=== PATIENT | male | born 1950 | race Caucasian/White ===

== ENCOUNTER 2024-06-30 12:28 | Inpatient (IN) ==
--- OUTSIDE RECORDS SUMMARY | 2024-06-30 12:34 | External Medical Summary | Summary of Care ---
Author Name Unknown Organization [facility] Address [address] [facility] [address] Phone [phone] Care Team Providers Care Multigrapher Name Role Phone Denae LUNA MD, Duglas Bravo Primary Care Provider [phone] Reason for Visit * Auth/Cert Specialty Diagnoses / Procedures Referred By Anisha fonseca Referred To Contact Diagnoses Dysphagia, unspecified type Dysphagia, unspecified type [R13.10] Procedures EGD, FLEXIBLE, DIAGNOSTIC ESOPHAGOGASTRODUODENOSCOPY (EGD), FLEXIBLE, TRANSORAL, DIAGNOSTIC Anne Linda MD [address] [place] [address] Phone: tel: fax: ENDO [facility], Endoscopy Room [facility] [address] [place] [address] Phone: tel: Referral ID Status Reason Start Date Expiration Date Visits Re quested Visits Authorized [id number] Encounter Details Date Type Department Care Team (Latest Contact Info) Description 05/21/2024 7:42 AM EST - 05/21/2024 9:21 AM EST Hospital Encounter ENDO [facility], Endoscopy Room [facility] [address] [place] [phone] Sherin Cote DO [address] [place] [address] Upper GI Endoscopy Discharge Disposition: Home - Self Care Allergies No known active allergiesdocumented as of this encounter (statuses as of 05/21/2024) Medications ASPIRIN 81 MG PO CHEWIndications:Cor onary atherosclerosis of [place] coronary artery,HTN, goal below 140/90,Dyslipidemia , goal LDL below 70 take one tablet daily 100 Tab 3 04/05/20 11 Active CoQ10 100 MG Oral Capsule Take by mouth 1 Capsule daily . 30 Capsule 5 09/12/19 22 Active Sildenafil Citrate 20 MG Oral Tablet (Revatio)Indication s:Erectile dysfunction, unspecified erectile dysfunction type 2-5 tabs as needed erectile dysfunction 30 Tablet 2 01/11/20 23 Active Nitroglycerin 0.4 MG Sublingual Tablet Sublingual (Nitrostat)Indicati ons:Acute RI, anterior wall (HCC) PLACE 1 TAB UNDER THE TONGUE NEEDED FOR CHEST PAIN, MAX 3 DOSES 25 Tablet 11 03/31/20 23 Active Rosuvastatin Calcium 40 MG Oral Tablet (Crestor)Indication s:Dyslipidemia, goal LDL below 70 TAKE 1 TABLET BY MOUTH EVERY DAY IN THE MORNING 90 Tablet 3 07/25/19 24 Active Solifenacin Succinate 10 MG Oral Tablet (VESIcare) TAKE ONE TABLET BY MOUTH IN THE MORNING 30 Tablet 6 10/20/19 24 Active Metoprolol Tartrate 50 MG Oral Tablet (Lopressor)Indicati ons:HTN, goal below 140/90 TAKE 1 TABLET BY MOUTH TWICE A DAY 180 Tablet 3 04/02/20 24 Active Ezetimibe 10 MG Oral Tablet (Zetia) TAKE 1 TABLET BY MOUTH EVERY DAY IN THE MORNING 90 Tablet 3 04/02/20 24 Active Chlorthalidone 25 MG Oral Tablet (Hygroton)Indicatio ns:HTN, goal below 140/90,Chronic ischemic heart disease TAKE 1/2 TABLET BY MOUTH DAILY 45 Tablet 3 04/02/20 24 Active Pantoprazole Sodium 20 MG Oral Tablet Delayed Release (Protonix)Indicatio ns:Dysphagia, unspecified type Take 1 Tablet by mouth in the morning. 90 Tablet 1 04/04/20 24 Active Losartan Potassium 100 MG Oral Tablet (Cozaar) TAKE 1 TABLET BY MOUTH EVERY DAY 90 Tablet 2 04/20/20 24 Active documented as of this encounter (statuses as of 05/21/2024) Active Problems Problem Noted Date Diagnosed Date S/P lumbar laminectomy 01/25/2022 BPH with obstruction/lower urinary tract symptom s 09/18/2021 Dyslipidemia, goal LDL below 70 09/30/2010 OLD MYOCARDIAL INFARCT 01/02/2009 Overview (01/02/2009): Modified by Acute RI Protocol #5. CHR ISCHEMIC HRT DIS NOS 09/14/2005 HTN, goal below 140/90 12/18/2001 Coronary atherosclerosis of [place] coronary sravanthi ry Alcohol abuse, continuous documented as of this encounter (statuses as of 05/21/2024) Resolved Problems Problem Noted Date Diagnosed Date Resolved Date Prediabetes 07/26/2017 01/21/2022 Overview: Per Prediabetes protocol #1 Palpitations 07/25/2013 09/22/2016 Discomfort in chest 07/25/2013 09/23/19 17 Acute RI, anterior wall 04/04/200712/12 Overview (01/02/2009): Modified by Acute RI Protocol #5. ADVANCE DIRECTIVE INFORMATION 03/29/2005 04/16/2024 Overview (03/29/2005): No, Advance Directive brochure offered , patient declined. Spasm of muscle 09/22/2016 Overview (03/08/2001): back documented as of this encounter (statuses as of 05/21/2024) Immunizations Name Administration Dates Next Due COVID-19 mRNA, LNP-s, No Pre serve, 2-Dose Series (Pfizer) 08/30/2020,08/09/2020 Pneumococcal Conjugate Vacc, 13 Valent (Prevnar) 10/19/2014 Pneumococcal Polysaccharide PPV23 (Pneumovax) 10/21/2015,06/09/2006 Season Influenza, Quad, PF, Adjuvanted, 65+ Yrs, IM (FLUAD) 03/19/2020 Seasonal Influenza Vac., MDV , IM, 0.5 mL (Fluzone) 04/23/2014,04/04/2013,03/23/2012,05/04,04/07/2010,04/11/2009,03/28/2008 ,06/08/2007,06/09/2006 Seasonal Influenza, High Dos e, Trivalent, PF, IM (Fluzone HD) 02/28/2024 Seasonal Influenza, PF, 6 M & above, IM , (FluLaval or Fluzone) 04/05/2018,03/30/2017 Seasonal Influenza, Quadriva lent Hd (Fluzone Hd) 04/19/2022,04/07/2021 Seasonal Influenza, Quadriva lent, No Preserve, IM 03/24/2016,04/09/2015 Seasonal Influenza, Trivalen t, Adjuvanted, 65+ YRS, PF, (Fluad) 04/27/2019 TDAP (age 10 and older)(Boostrix) 07/25/2020 TDAP, Age 7 and older, IM (Adacel) 09/07/2007 Varicella Zoster Vaccine (Adult) 04/15/2015 documented as of this encounter Social History Tobacco Use Types Packs/Day Years Used Date Smoking Tobacco: Former Cigarettes 1 2 0 06/13/1999 - 06/13/2001 Smokeless Tobacco: Never Alcohol Use Standard Drinks/Week Comments Yes 25 (1 standard drink = 0.6 oz pu re alcohol) 4 beers some days PHQ-2 Answer Date Recorded PHQ Adult Total Score 0 01/10/2023 Hunger Vital Sign Answer Date Recorded Within the past 12 months, y ou worried that your food would run out before you got the money to buy more. Patient declined Within the past 12 months, t he food you bought just didn't last and you didn't have money to get more. Patient declined Utilities Answer Date Recorded Do you have trouble paying y our heating, water, or electric bill? (Adult - for ages 18 years and over) Not on file 11/29/2023 Is your family able to pay t he heat, water, or electric bill? (Household - for ages 0-17 years) Not on file 11/29/2023 Does your family have access to good internet? (Household - for ages 0-17 years) Not on file 11/29/2023 Social Connections Answer Date Recorded How often do you feel lonely or isolated from those around you? 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 Not on file Not on file Not on file documented as of this encounter Last Filed Vital Signs Vital Sign Reading Time Taken Comments Blood Pressure 116/73 05/21/2024 9:06 AM EST Pulse 75 05/21/2024 9:06 AM EST Temperature 36.1 C (97 F) 05/21/2024 9:06 AM EST Respiratory Rate 16 05/21/2024 9:06 AM EST Oxygen Saturation 98% 05/21/2024 9:06 AM EST Inhaled Oxygen Concentration - - Weight 100.2 kg (221 lb) 05/21/2024 7:51 AM EST Height 188 cm (6' 2.02") 05/21/2024 7:51 AM EST Body Mass Index 28.36 05/21/2024 7:51 AM EST documented in this encounter Functional Status * Are you deaf or do you have serious difficulty hearing? Answer Date of Assessment Author No 01/25/2022 4:54 PM EDT Linda Álvarez RN * Are you blind or do you have serious difficulty seeing, even when wearing glasses? Answer Date of Assessment Author No 01/25/2022 4:54 PM ABDIRAHMANT Linda Álvarez RN * Do you have serious difficulty walking or climbing stairs? (5 years old or older) Answer Date of Assessment Author Yes 01/27/2022 8:00 AM EDT Jacquelyn Alford RN * Do you have difficulty dressing or bathing? (5 years old or older) Answer Date of Assessment Author No 01/25/2022 4:54 PM ABDIRAHMANT Linda Álvarez RN * Because of a physical, mental, or emotional condition, do you have difficulty doing errands alone such as visiting a doctors office or shopping? (15 years old or older) Answer Date of Assessment Author No 01/25/2022 4:54 PM Linda Chaidez RN documented as of this encounter Mental Status * Because of a physical, mental, or emotional condition, do you have serious difficulty concentrating, remembering, or making decisions? (5 years old or older) Answer Entry Date Author No 01/25/2022 4:54 PM Linda Chaidez RN documented in this encounter H&P Notes * Sherin Cote, DO - 05/21/2024 8:20 AM EST Endoscopy Pre-Procedure Assessment Name: Lorne Roe Date: 05/21/2024 Time: 8:20 AM Procedure(s): Upper GI Endoscopy; with Indication(s) of dysphagia or odynophagia Endoscopy Pre-Procedure Assessment: Prior to the procedure, the patient is identified. The patient's history, medications and allergieshave been reviewed. The patient is competent. The risks and benefits of the proposed procedure and the planned sedation have been discussed with the patient. All questions have been answered and informed consent for the procedure has been obtained. Prior to Admission medications Medication Sig Last Dose Discont. Losartan Potassium 100 MG Oral Tablet (Cozaar) TAKE 1 TABLET BY MOUTH EVERY DAY 05/20/2024 Pantoprazole Sodium 20 MG Oral Tablet Delayed Release (Protonix) Take 1 Tablet by mouth in the morning. 05/20/2024 Chlorthalidone 25 MG Oral Tablet (Hygroton) TAKE 1/2 TABLET BY MOUTH DAILY 05/20/2024 Ezetimibe 10 MG Oral Tablet (Zetia) TAKE 1 TABLET BY MOUTH EVERY DAY IN THE MORNING 05/20/2024 Metoprolol Tartrate 50 MG Oral Tablet (Lopressor) TAKE 1 TABLET BY MOUTH TWICE A DAY 05/20/2024 Solifenacin Succinate 10 MG Oral Tablet (VESIcare) TAKE ONE TABLET BY MOUTH IN THE MORNING 05/20/2024 Rosuvastatin Calcium 40 MG Oral Tablet (Crestor) TAKE 1 TABLET BY MOUTH EVERY DAY IN THE MORNING 05/20/2024 Sildenafil Citrate 20 MG Oral Tablet (Revatio) 2-5 tabs as needed erectile dysfunction Unknown CoQ10 100 MG Oral Capsule Take by mouth 1 Capsule daily . 05/20/2024 ASPIRIN 81 MG PO CHEW take one tablet daily 05/20/2024 Nitroglycerin 0.4 MG Sublingual Tablet Sublingual (Nitrostat) PLACE 1 TAB UNDER THE TONGUE NEEDED FOR CHEST PAIN, MAX 3 DOSES Over 30 Days Review of patient's allergies indicates: No Known Allergies BP 136/82 | Pulse 78 | Temp 36.4 C (97.6 F) (Tympanic) | Resp 14 | Ht 1.88 m (6' 2.02") | Wt 100.2 kg (221 lb) | SpO2 97% | BMI 28.36 kg/m | BSA 2.29 m Physical Exam: Mental Status Examination: alert and oriented. Airway Examination: normal oropharyngeal airway and neck mobility. Respiratory Examination: clear to auscultation. CV Examination: regular rate and rhythm. ASA Grade: II - A patient with mild systemic disease. Abdomen: soft This patient has undergone a preprocedural evaluation. A determination has been made to proceed with the planned procedure under [facility] procedural guidelines and the [facility] Non-Emergent, Elective Medical Services and Treatment Recommendations (published on 09-18-19). The community and hospital prevalence of COVID-19 has been discussed as well as this patient's specific risks associated with SARS-CoV-19 infection. Based upon the clinical acuity and patient-specific care considerations, this procedure is deemed a Tier II - Intermediate acuity treatment or service with either progression or the threat of progressive disease related to the delay in treatment. Not providing the service has the potential for increasing morbidity or mortality. After reviewing the risks and benefits, the patient is deemed in satisfactory condition to undergo the procedure. The anesthesia plan is to use general anesthesia. We have discussed the risks and benefits of upper endoscopy to include bleeding, infection, perforation, discomfort, aspiration and need for follow-up studies. Sherin Cote DO 05/21/2024 documented in this encounter Procedure Notes * Duglas Philippe III, MD - 05/21/2024 8:21 AM ESTAssociated Order(s): UPPER GI ENDOSCOPY [facility] Patient Name: Lorne Roe Procedure Date: 05/21/2024 8:21 AM Date of : 1950 Admit Type: Outpatient Note Status: Finalized Date of : 1950 Admit Type: Outpatient Age: 73 Room: Endo 3 Gender: Male Note Status: Finalized Procedure: Upper GI endoscopy Indications: Dysphagia Providers: Sherin Cote DO (Doctor) Referring MD: Duglas Philippe III, MD (Referring MD), Safia Moses (Referring MD) Medicines: General Anesthesia Complications: No immediate complications. Estimated blood loss: Minimal. Procedure: Pre-Anesthesia Assessment: - Prior to the procedure, a History and Physical was performed, and patient medications, allergies and sensitivities were reviewed. The patient's tolerance of previous anesthesia was reviewed. - The risks and benefits of the procedure and the sedation options and risks were discussed with the patient. All questions were answered and informed consent was obtained. - Patient identification and proposed procedure were verified prior to the procedure by the physician, the nurse and the supply analyst. The procedure was verified in the procedure room. - Pre-procedure physical examination revealed no contraindications to sedation. - ASA Grade Assessment: II - A patient with mild systemic disease. - After reviewing the risks and benefits, the patient was deemed in satisfactory condition to undergo the procedure. - The anesthesia plan was to use general anesthesia. - Immediately prior to administration of medications, the patient was re- assessed for adequacy to receive sedatives. - The heart rate, respiratory rate, oxygen saturations, blood pressure, adequacy of pulmonary ventilation, and response to care were monitored throughout the procedure. - The physical status of the patient was re-assessed after the procedure. After obtaining informed consent, the endoscope was passed under direct vision. All instruments were visually inspected immediately before and after removal from the patient to ensure they are fully intact. Throughout the procedure, the patient's blood pressure, pulse, and oxygen saturations were monitored continuously. The [id number] Endoscope ([id number]) was introduced through the mouth, and advanced to the third part of duodenum. The upper GI endoscopy was accomplished without difficulty. The patient tolerated the procedure well. Findings & Specimens: No endoscopic abnormality was evident in the esophagus to explain the patient's complaint of dysphagia. It was decided, however, to proceed with dilation of the entire esophagus. A guidewire was placed and the scope was withdrawn. Dilation was performed with a Savary dilator with no resistance at 54 Fr. The dilation site was examined following endoscope reinsertion and showed mild mucosal disruption jsut above the GEJ. Estimated blood loss was minimal. The Z-line was irregular and was found 40 cm from the incisors. Biopsies were taken with a cold forceps for histology. The pathology specimen was placed into Bottle Number 1. Estimated blood loss was minimal. The entire examined stomach was normal. The examined duodenum was normal. Impression: - No endoscopic esophageal abnormality to explain patient's dysphagia. Esophagus dilated to 54 Fr. - Z-line irregular, 40 cm from the incisors. Biopsied. - Normal stomach. - Normal examined duodenum. Recommendation: - The patient will be observed post-procedure, until all discharge criteria are met. - Advance diet as tolerated today. - Await pathology results. - Observe patient's clinical course following today's procedure with therapeutic intervention. - Use Protonix 20 mg PO daily for 3 months. Sherin Cote DO 05/21/2024 8:50:43 AM This report has been signed electronically. documented in this encounter Nursing Notes * Mara Real RN - 05/21/2024 9:20 AM EST Patient is alert, pain free, passing flatus and tolerating po fluids prior to discharge. Patient has been visited by Dr. Sherin Cote. Patient has received and demonstrates understanding of discharge instructions. Patient ambulated to private auto accompanied by endo staff. * Mara Real RN - 05/21/2024 8:51 AM EST Patient transferred to post endo s/p egd. Patient awake/drowsy Respirations are even and unlabored on room air. NSR in the 80s on the monitor. Abdomen soft and non distended. Vital signs stable. * Shlomo eVla RN - 05/21/2024 8:48 AM EST See anesthesia record for medication administered during procedure. Shlomo Vela RN Pre cleaning of scope at the bedside started by testing tech. Specimen(s) and location(s) verified with physician post procedure 8:48 AM Shlomo Vela, RN * Manjula Garcia RN - 05/21/2024 7:59 AM EST The following pt discharge instructions reviewed with pt prior to prodedure: No driving today. No alcohol today. No signing of legal documents. Rest as much as possible today and can return to normal activities tomorrow. No operating any heavy equipment today. Diet as tolerated. Pt verbalized understanding. documented in this encounter Plan of Treatment Upcoming Encounters Date Type Department Care Team (Late st Contact Info) Description 08/01/2024 11:15 AM EST Office Visit Urology, [facility] [address] [place] [address] Medhat Encinas MD [address] [facility] [place] [address] 11/26/2024 2:30 PM EDT Office Visit Cardiology, [facility] [address] [place] [address] Guerrero [place], [address] [facility] [place] [address] 02/28/2025 9:20 AM EDT Office Visit [facility] [address] [facility] [place] [address] Duglas Philippe III, MD [address] [facility] [place] [address] Pending Results Name Type Priority Associated Diagnoses Date /Time SURGICAL PATHOLOGY Pathology Routine Dysphagia, unspecified type 05/21/2024 8:49 AM EST Scheduled Orders Name Type Priority Associated Diagnoses Orde r Schedule SURGICAL PATHOLOGY Pathology Routine Dysphagia, unspecified type Release Upon Ordering for 1 Occurrences starting 05/21/2024 Scheduled Procedures Name Priority Associated Diagnoses Date/Ti me ESOPHAGOGASTRODUODENOSCOPY ( EGD), FLEXIBLE, TRANSORAL, DIAGNOSTIC Dysphagia, unspecified type 05/21/2024 8:38 AM EST COLONOSCOPY FLEXIBLE PROXIMA L DIAGNOSTIC Recall History of colonic polyps Health Maintenance Due Date Last Done Comments Albumin/Creatinine Ratio 1967 Cologuard 1994 Fecal Occult Blood Test 1994 Sigmoidoscopy 1994 Zoster Vaccines (2 of 3) 06/10/2015 04/15/2015 Adult Wellness Visit 01/05/2022 01/05/2021 Depression Screening 01/11/2024 01/10/2023 COVID-19 Vaccine ( season) 2024 08/30/2020, 08/09/2020 GFR 02/26/2025 02/27/2024, 12/11, 01/28/2022, Additional history exists Colonoscopy 05/16/2026 05/16/2023, 09/2022, 04/10/2019, Additional history exists Colorectal Cancer Screening 05/16/2026 DTap/Tdap Vaccines (3 - Td or Tdap) 07/25/2030 07/25/2020, 09/07/2007 Pneumococcal Vaccine: 65+ Years Completed 10/21/2015, 10/19/2014, 06/09/2006 AAA Screening Completed 12/31/2021, 08/19/2014 Influenza Vaccine (FLU shot) Completed , 04/19/2022, 04/07/2021, Additional history exists HPV (Gardasil) Vaccine Aged Out No lo nger eligible based on patient's age to complete this topic Hepatitis B Vaccine Aged Out No longe r eligible based on patient's age to complete this topic MENINGOCOCCAL (MENACTRA/MENVEO) Aged Out No longer eligible based on patient's age to complete this topic documented as of this encounter Medical Devices Implanted Type Area Post Closer Device Identifier Shelf Expiration Date Model / Serial / Lot 5.6cc, (Pk Of 4) 1in X 2in Mediuminfuse Bone Graft Kit Implanted:Qty: 1 on 01/25/2022 by Marshall Dupont MD at OR [facility] Bone N/A: Spine Lumbar Medtronic Sofamor Danek [id number] 02/10/2022 [id number] / [id number] / [id number] 25mm X 100mm X 4mm, 10cc Vitoss Bioactive Foam Strip, Synthetic Bone Graft Substitute, Ambient Implanted:Qty: 1 on 01/25/2022 by Marshall Dupont MD at OR [facility] Graft N/A: Spine Lumbar JERAMIE [id number] 03/10/[id number] / [id number] / [id number] Vitoss Bimodal Foam Pack Implanted:Qty: 1 on 01/25/2022 by Marshall Dupont MD at OR [facility] Graft N/A: Spine Lumbar JERAMIE [id number] 07/10/[id number] / [id number] / [id number] 25mm X 100mm X 4mm, 10cc Vitoss Bioactive Foam Strip, Synthetic Bone Graft Substitute, Ambient Implanted:Qty: 1 on 01/25/2022 by Marshall Dupont MD at OR [facility] Graft N/A: Spine Lumbar JERAMIE [id number] 03/10/2024 [id number] / [id number] / [id number] Screw [place] Poly 06.5x50 Mm - [id number] Implanted:Qty: 8 on 01/25/2022 by Marshall Dupont MD at OR [facility] Screw N/A: Spine Lumbar [id number] 0 / / Set Screw Poly Atr [place] - [id number] Implanted:Qty: 8 on 01/25/2022 by Marshall Dupont MD at OR [facility] Screw N/A: Spine Lumbar JERAMIE : SPINE [id number] / / Dbx 10cc [id number] - [id number] - [id number] Implanted:Qty: 1 on 01/25/2022 by Marshall Dupont MD at OR [facility] Tissue - Human N/A: Spine Lumbar MUSCULOSKELETAL TRANSPLANT FND [id number] 09/09/2023 [id number] / [id number] / LOT NA Lens Intraoc 19.5 - [id number] - [id number] Implanted:Qty: 1 on 07/26/2017 by Orion Hernandez MD at OR [facility] Left: Eye BAUSCH & LOMB 02/10/2022 [id number] / [id number] Lens Intraoc 19.5 - [id number] - [id number] Implanted:Qty: 1 on 08/16/2017 by Orion Hernandez MD at OR [facility] Right: Eye BAUSCH & LOMB 12/10/2021 [id number] / [id number] Cage Inter [id number] 12 Deg - [id number] Implanted:Qty: 1 on 01/25/2022 by Marshall Dupont MD at OR [facility] N/A: Spine Lumbar JERAMIE : SPINE 03/02/2024 58-1028-1 [id number] / / [id number] Cage Inter [id number] 12 Deg Implanted:Qty: 1 on 01/25/2022 by Marshall Dupont MD at OR [facility] N/A: Spine Lumbar JERAMIE : SPINE 09/21/2024 58-1028-1 210K / / [id number] Cage Inter [id number] 15 Deg Implanted:Qty: 1 on 01/25/2022 by Marshall Dupont MD at OR [facility] N/A: Spine Lumbar JERAMIE : SPINE 03/30/2024 58-1028-1 510K / / [id number] Rene Implanted:Qty: 2 on 01/25/2022 by Marshall Dupont MD at OR [facility] N/A: Spine Lumbar JERAMIE : SPINE [id number] / / documented as of this encounter Procedures Procedure Name Priority Date/Time Associated Diagnosis Comments UPPER GI ENDOSCOPY 05/21/2024 8: 21 AM EST documented in this encounter Results * UPPER GI ENDOSCOPY (05/21/2024 8:21 AM EST) 05/21/2024 8:21 AM EST Narrative Procedure Note Duglas Philippe III, MD - 05/21/2024 8:21 AM EST [facility] Patient Name: Lorne Roe Procedure Date: 05/21/2024 8:21 AM Date of : 1950 Admit Type: Outpatient Note Status:Finalized Date of : 1950 Admit Type: Outpatient Age: 73 Room: Endo 3 Gender: Male Note Status: Finalized Procedure: Upper GI endoscopy Indications: Dysphagia Providers: Sherin Cote DO (Doctor) Referring MD: Duglas Philippe III, MD (Referring MD), Alexei Moses (Referring MD) Medicines: General Anesthesia Complications: No immediate complications. Estimated blood loss:Minimal. Procedure: Pre-Anesthesia Assessment: - Prior to the procedure, a History and Physicalwas performed, and patient medications, allergies and sensitivities werereviewed. The patient's tolerance of previous anesthesia was reviewed. - The risks and benefits of the procedure and thesedation options and risks were discussed with the patient. All questions wereanswered and informed consent was obtained. - Patient identification and proposed procedurewere verified prior to the procedure by the physician, the nurse and the supply analyst.The procedure was verified in the procedure room. - Pre-procedure physical examination revealed nocontraindications to sedation. - ASA Grade Assessment: II - A patient with mildsystemic disease. - After reviewing the risks and benefits, thepatient was deemed in satisfactory condition to undergo the procedure. - The anesthesia plan was to use generalanesthesia. - Immediately prior to administration ofmedications, the patient was re-assessed for adequacy to receive sedatives. - The heart rate, respiratory rate, oxygensaturations, blood pressure, adequacy of pulmonary ventilation, and response to care weremonitored throughout the procedure. - The physical status of the patient wasre-assessed after the procedure. After obtaining informed consent, the endoscope waspassed under direct vision. All instruments were visually inspected immediatelybefore and after removal from the patient to ensure they are fully intact. Throughout the procedure, the patient's bloodpressure, pulse, and oxygen saturations were monitored continuously. The [id number] ([id number]) was introduced through the mouth, and advanced to the third part ofduodenum. The upper GI endoscopy was accomplished without difficulty. The patienttolerated the procedure well. Findings & Specimens: No endoscopic abnormality was evident in the esophagus to explain thepatient's complaint of dysphagia. It was decided, however, to proceed with dilation of the entireesophagus. A guidewire was placed and the scope was withdrawn. Dilation was performed with a Savary dilatorwith no resistance at 54 Fr. The dilation site was examined following endoscope reinsertion and showedmild mucosal disruption jsut above the GEJ. Estimated blood loss was minimal. The Z-line was irregular and was found 40 cm from the incisors.Biopsies were taken with a cold forceps for histology. The pathology specimen was placed into Bottle Number1. Estimated blood loss was minimal. The entire examined stomach was normal. The examined duodenum was normal. Impression: - No endoscopic esophageal abnormality to explainpatient's dysphagia. Esophagus dilated to 54 Fr. - Z-line irregular, 40 cm from the incisors.Biopsied. - Normal stomach. - Normal examined duodenum. Recommendation: - The patient will be observed post-procedure,until all discharge criteria are met. - Advance diet as tolerated today. - Await pathology results. - Observe patient's clinical course followingtoday's procedure with therapeutic intervention. - Use Protonix 20 mg PO daily for 3 months. Sherin Cote DO 05/21/2024 8:50:43 AM This report has been signed electronically. us Duglas Philippe III, MD GASTRO UPPER Final Resul t documented in this encounter Visit Diagnoses Diagnosis Dysphagia, unspecified type documented in this encounter Administered Medications Inactive Administered Medications - up to 3 most recent administrations Medication Order MAR Action Action Date Dose Rate Site Acetaminophen (Tylenol) tab 650 mg 650 mg, Oral, PRN Pain, Mild, Starting on Tue05/21/24 at 0858, Until Tue05/21/24 at 1321, For 1 dose, Maximum of 4 grams (4000 mg) per day., Post-op Isolyte-S pH 7.4 infusion Intravenous, at 100 mL/hr, Plasma-LYTE 148, isolyte-S, and isolyte-S pH 7.4 are considered equivalent - including for MAR barcode scanning., CONTINUOUS, Starting on Tue05/21/24 at 0830, Until Tue05/21/24 at 1321, Pre-Op Continue from Pre-Op 05/21/2024 8:29 AM EST 100 mL/hr New Bag 05/21/2024 8:12 AM EST 100 mL/hr documented in this encounter Active and Recently Administered Medications Times are shown in EST. Continuous Medication Order 05/19/2024 05/20/2024 05/21/2024 Isolyte-S pH 7.4 infusion Intravenous, at 100 mL/hr, Plasma-LYTE 148, isolyte-S, and isolyte-S pH 7.4 are considered equivalent - including for MAR barcode scanning., CONTINUOUS, Starting on Tue05/21/24 at 0830, Until Tue05/21/24 at 1321, Pre-Op 0812 (New Bag - Prov ider: Manjula Garcia RN)0829 (Continue from Pre-Op - Provider: Tito Conner CRNA) PRN Medication Order 05/19/2024 05/20/2024 05/21/2024 Acetaminophen (Tylenol) tab 650 mg 650 mg, Oral, PRN Pain, Mild, Starting on Tue05/21/24 at 0858, Until Tue05/21/24 at 1321, For 1 dose, Maximum of 4 grams (4000 mg) per day., Post-op documented in this encounter Advance Directives * Full Code (Latest Code Status on File) Date Activated Date Inactivated Comments 01/25/2022 2:52 PM 01/28/2022 8:12 PM This order r eflects the patients wishes and were consensually agreed upon. Question Answer Comments Discussion of Advance Directives occurred with: Not Discussed * Full Code Date Activated Date Inactivated Comments 01/25/2022 6:12 AM 01/25/2022 2:51 PM This order r eflects the patients wishes and were consensually agreed upon. Question Answer Comments Discussion of Advance Directives occurred with: Not Discussed * Full Code Date Activated Date Inactivated Comments 04/22/2021 8:39 AM 04/22/2021 2:09 PM This order reflects the patients wishes and were consensually agreed upon. * Full Code Date Activated Date Inactivated Comments 04/22/2021 7:08 AM 04/22/2021 8:39 AM This order reflects the patients wishes and were consensually agreed upon. * Full Code Date Activated Date Inactivated Comments 08/16/2017 12:18 PM 08/16/2017 6:55 PM This order re flects the patients wishes and were consensually agreed upon. Care Teams Multigrapher Relationship Specialty Start Date End Date Duglas Philippe III, MD [address] [facility] [place] [address] PCP - General 04/04/07 documented as of this encounter
--- OUTSIDE RECORDS SUMMARY | 2024-06-30 12:35 | External Medical Summary | Summary of Care ---
Author Name Unknown Organization [facility] [address] [address] Phone [phone] Care Team Providers Care Plate Former Name Role Phone Denae LUNA MD, Damon Bravo Primary Care Provider [phone] Reason for Visit * Reason Comments eRx-Medication Refill Encounter Details Date Type Department Care Team (Late st Contact Info) Description 04/20/2024 [facility] [address] [facility] [place] [address] Damon White III, MD [address] [facility] [address] [facility] [address] Allergies No known active allergiesdocumented as of this encounter (statuses as of 04/20/2024) Medications ASPIRIN 81 MG PO CHEWIndications:Co ronary atherosclerosis of [place] coronary artery,HTN, goal below 140/90,Dyslipidemi a, goal LDL below 70 take one tablet daily 100 Tab 3 011 Active CoQ10 100 MG Oral Capsule Take by mouth 1 Capsule daily . 30 Capsule 5 022 Active Sildenafil Citrate 20 MG Oral Tablet (Revatio)Indicatio ns:Erectile dysfunction, unspecified erectile dysfunction type 2-5 tabs as needed erectile dysfunction 30 Tablet 2 023 Active Nitroglycerin 0.4 MG Sublingual Tablet Sublingual (Nitrostat)Indicat ions:Acute AR, anterior wall (HCC) PLACE 1 TAB UNDER THE TONGUE NEEDED FOR CHEST PAIN, MAX 3 DOSES 25 Tablet 11 023 Active Rosuvastatin Calcium 40 MG Oral Tablet (Crestor)Indicatio ns:Dyslipidemia, goal LDL below 70 TAKE 1 TABLET BY MOUTH EVERY DAY IN THE MORNING 90 Tablet 3 024 Active Solifenacin Succinate 10 MG Oral Tablet (VESIcare) TAKE ONE TABLET BY MOUTH IN THE MORNING 30 Tablet 6 024 Active Metoprolol Tartrate 50 MG Oral Tablet (Lopressor)Indicat ions:HTN, goal below 140/90 TAKE 1 TABLET BY MOUTH TWICE A DAY 180 Tablet 3 024 Active Ezetimibe 10 MG Oral Tablet (Zetia) TAKE 1 TABLET BY MOUTH EVERY DAY IN THE MORNING 90 Tablet 3 024 Active Chlorthalidone 25 MG Oral Tablet (Hygroton)Indicati ons:HTN, goal below 140/90,Chronic ischemic heart disease TAKE 1/2 TABLET BY MOUTH DAILY 45 Tablet 3 024 Active Pantoprazole Sodium 20 MG Oral Tablet Delayed Release (Protonix)Indicati ons:Dysphagia, unspecified type Take 1 Tablet by mouth in the morning. 90 Tablet 1 024 Active Losartan Potassium 100 MG Oral Tablet (Cozaar) TAKE 1 TABLET BY MOUTH EVERY DAY 90 Tablet 2 024 Active Losartan Potassium 100 MG Oral Tablet (Cozaar) TAKE 1 TABLET BY MOUTH EVERY DAY 90 Tablet 024 2023 Discontinued documented as of this encounter (statuses as of 04/20/2024) Active Problems Problem Noted Date Diagnosed Date S/P lumbar laminectomy 01/25/2022 BPH with obstruction/lower urinary tract symptom s 09/18/2021 Dyslipidemia, goal LDL below 70 09/30/2010 OLD MYOCARDIAL INFARCT 01/02/2009 Overview (01/02/2009): Modified by Acute AR Protocol #5. CHR ISCHEMIC HRT DIS NOS 09/14/2005 HTN, goal below 140/90 12/18/2001 Coronary atherosclerosis of [place] coronary sravanthi ry Alcohol abuse, continuous documented as of this encounter (statuses as of 04/20/2024) Resolved Problems Problem Noted Date Diagnosed Date Resolved Date Prediabetes 07/26/2017 01/21/2022 Overview: Per Prediabetes protocol #1 Palpitations 07/25/2013 09/22/2016 Discomfort in chest 07/25/2013 09/23/19 17 Acute AR, anterior wall 04/04/200712/12 Overview (01/02/2009): Modified by Acute AR Protocol #5. ADVANCE DIRECTIVE INFORMATION 03/29/2005 04/16/2024 Overview (03/29/2005): No, Advance Directive brochure offered , patient declined. 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 Not on file Not on file Not on file documented as of this encounter Functional Status * Are you [...] 4:54 PM EDT Linda Álvarez RN * Because of a [...] Linda Chaidez RN documented in this encounter Miscellaneous Notes * Telephone Encounter - Pina Sesay RPh - 04/20/2024 7:23 PM ESTSigned Prescriptions: Disp Refills Losartan Potassium 100 MG Oral Tablet (Coz*90 Tab*2 Sig: TAKE 1 TABLET BY MOUTH EVERY DAYAuthorizing Provider: DAMON WHITE III User: PINA SESAY-- documented in this encounter Plan of Treatment Upcoming Encounters Date Type Department Care Team (Late st Contact Info) Description 08/01/2024 11:15 AM EST Office Visit Urology, [address] [place] [address] Medhat Encinas MD [address] [place] [address] 02/28/2025 9:20 AM EDT Office Visit Family Practice [facility] [address] [facility] [place] [address] Damon White III, MD [address] [facility] [place] [address] Scheduled Procedures Name Priority Associated Diagnoses Date/Ti me COLONOSCOPY FLEXIBLE PROXIMA L DIAGNOSTIC Recall History [...] this encounter Medical Devices Implanted Type Area Slurry Tank Operator Device Identifier Shelf Expiration Date Model / Serial / Lot 5.6cc, (Pk Of 4) 1in X 2in Mediuminfuse Bone Graft Kit Implanted:Qty: 1 on 01/25/2022 by Marshall Dupont MD at OR [facility] Bone N/A: Spine Lumbar Medtronic Sofamor Danek [id number] 02/10/2022 [id number] / [id number] / [id number] 25mm X 100mm X 4mm, 10cc Vitoss Bioactive Foam Strip, Synthetic Bone Graft Substitute, Ambient Implanted:Qty: 1 on 01/25/2022 by Marshall Dupont MD at OR [facility] Graft N/A: Spine Lumbar JERAMIE [id number] 03/10/202421011744-2102 / [id number] / [id number] Vitoss Bimodal Foam Pack Implanted:Qty: 1 on 01/25/2022 by Marshall Dupont MD at OR [facility] Graft N/A: Spine Lumbar JERAMIE [id number] 07/10/202321017114-3505 / [id number] / [id number] 25mm X 100mm X 4mm, 10cc Vitoss Bioactive Foam Strip, Synthetic Bone Graft Substitute, Ambient Implanted:Qty: 1 on 01/25/2022 by Marshall Dupont MD at OR [facility] Graft N/A: Spine Lumbar JERAMIE [id number] 03/10/2024 8597-0058 / [id number] / [id number] Screw Kent Poly 06.5x50 Mm - [id number] Implanted:Qty: 8 on 01/25/2022 by Marshall Dupont MD at OR [facility] Screw N/A: Spine Lumbar [employer]2M INC [id number] 0 / / Set Screw Poly Atr Kent - [id number] Implanted:Qty: 8 on 01/25/2022 by Marshall Dupont MD at OR [facility] Screw N/A: Spine Lumbar JERAMIE : SPINE 4561-3952 1 / / Dbx 10cc [id number] - [id number] - [id number] Implanted:Qty: 1 on 01/25/2022 by Marshall Dupont MD at OR [facility] Tissue - Human N/A: Spine Lumbar MUSCULOSKELETAL TRANSPLANT FND [id number] 09/09/2023 [id number] / [id number] / LOT NA Lens Intraoc 19.5 - [id number] - [id number] Implanted:Qty: 1 on 07/26/2017 by Orion Hernandez MD at [facility] Left: Eye BAUSCH & LOMB 02/10/2022 [id number] / [id number] Lens Intraoc 19.5 - [id number] - [id number] Implanted:Qty: 1 on 08/16/2017 by Orion Hernandez MD at [facility] Right: Eye BAUSCH & LOMB 12/10/2021 [id number] / [id number] Cage Inter [id number] 12 Deg - [id number] Implanted:Qty: 1 on 01/25/2022 by Marshall Dupont MD at OR [facility] N/A: Spine Lumbar JERAMIE : SPINE 03/02/2024 58-1028-1 208K / / [id number] Cage Inter [id number] 12 Deg Implanted:Qty: 1 on 01/25/2022 by Marshall Dupont MD at OR [facility] N/A: Spine Lumbar JERAMIE : SPINE 09/21/2024 58-1028-1 210K / / [id number] Cage Inter [id number] 15 Deg Implanted:Qty: 1 on 01/25/2022 by Marshall Dupont MD at OR [facility] N/A: Spine Lumbar JERAMIE : SPINE 03/30/2024 58-1028-1 510K / / [id number] Rene Implanted:Qty: 2 on 01/25/2022 by Marshall Dupont MD at OR [facility] N/A: Spine Lumbar JERAMIE : SPINE [id number] / / documented as of this encounter Advance Directives * Full Code [...] and were consensually agreed upon. Care Teams Plate Former Relationship Specialty Start Date End Date Damon White III, MD [address] [place] [address] PCP - General 04/04/07 documented as of this encounter
--- OUTSIDE RECORDS SUMMARY | 2024-06-30 12:35 | External Medical Summary | Summary of Care ---
Author Name Unknown Organization [facility] Address [address] [facility] [address] Phone [phone] Care Team Providers Care Interventional Physician Name Role Phone Denae LUNA MD, Duglas Bravo Primary Care Provider [phone] Reason for Referral * Ancillary Services (Within 10 days (routine)) - Authorized Specialty Diagnoses / Procedures Referred By Anisha fonseca Referred To Contact Gastroenterology Diagnoses Dysphagia, unspecified type Safia Moses PA-C [address] [facility] [place] [address] Referral ID Status Reason Start Date Expiration Date Visits Requested Visits Authorized [id number] Authorized Ancillary Services Required 4 [phone] Question Answer Referral Priority Within 10 days (routine) Where should this appointment be scheduled? [facility] Comments Upper Endoscopy ASGE Guidelines Dysphagia or odynophagia and Dilation of stenotic lesions ADDITIONAL INFORMATION 1. Is the patient on Coumadin? No 2. Is the patient on Pradaxa? No Reason for Visit * Reason Comments dysphagia Encounter Details Date Type Department Care Team (Late st Contact Info) Description 04/04/2024 11:20 AM EDT Office Visit Family Practice [facility] [address] [place] [address] [address] Safia Moses PA-C [address] [facility] [place] [address] Dysphagia, unspecified type* Allergies No known active allergiesdocumented as of this encounter (statuses as of 04/04/2024) Medications Medication Sig Dispensed Refills Start Date End Date Status ASPIRIN 81 MG PO CHEWIndications:Coron anushka atherosclerosis of [place] coronary artery,HTN, goal below 140/90,Dyslipidemia, goal LDL below 70 take one tablet daily 100 Tab 3 04/05/2011 Active CoQ10 100 MG Oral Capsule Take by mouth 1 Capsule daily . 30 Capsule 5 09/11/2021 Active Sildenafil Citrate 20 MG Oral Tablet (Revatio)Indications: Erectile dysfunction, unspecified erectile dysfunction type 2-5 tabs as needed erectile dysfunction 30 Tablet 2 01/10/2023 Active Nitroglycerin 0.4 MG Sublingual Tablet Sublingual (Nitrostat)Indication s:Acute [place], anterior wall (HCC) PLACE 1 TAB UNDER THE TONGUE NEEDED FOR CHEST PAIN, MAX 3 DOSES 25 Tablet 11 03/31/2023 Active Rosuvastatin Calcium 40 MG Oral Tablet (Crestor)Indications: Dyslipidemia, goal LDL below 70 TAKE 1 TABLET BY MOUTH EVERY DAY IN THE MORNING 90 Tablet 3 07/25/2023 Active Solifenacin Succinate 10 MG Oral Tablet (VESIcare) TAKE ONE TABLET BY MOUTH IN THE MORNING 30 Tablet 6 10/20/2023 Active Losartan Potassium 100 MG Oral Tablet (Cozaar) TAKE 1 TABLET BY MOUTH EVERY DAY 90 Tablet 01/20/2024 Active Metoprolol Tartrate 50 MG Oral Tablet (Lopressor)Indication s:HTN, goal below 140/90 TAKE 1 TABLET BY MOUTH TWICE A DAY 180 Tablet 3 04/02/2024 Active Ezetimibe 10 MG Oral Tablet (Zetia) TAKE 1 TABLET BY MOUTH EVERY DAY IN THE MORNING 90 Tablet 3 04/02/2024 Active Chlorthalidone 25 MG Oral Tablet (Hygroton)Indications :HTN, goal below 140/90,Chronic ischemic heart disease TAKE 1/2 TABLET BY MOUTH DAILY 45 Tablet 3 04/02/2024 Active Pantoprazole Sodium 20 MG Oral Tablet Delayed Release (Protonix)Indications :Dysphagia, unspecified type Take 1 Tablet by mouth in the morning. 90 Tablet 1 04/04/2024 Active documented as of this encounter (statuses as of 04/04/2024) Active Problems Problem Noted Date Diagnosed Date S/P lumbar laminectomy 01/25/2022 BPH with obstruction/lower urinary tract symptom s 09/18/2021 Dyslipidemia, goal LDL below 70 09/30/2010 OLD MYOCARDIAL INFARCT 01/02/2009 Overview: Modified by Acute [place] Protocol #5. CHR ISCHEMIC HRT DIS NOS 09/14/2005 ADVANCE DIRECTIVE INFORMATION 03/29/2005 Overview: No, Advance Directive brochure offered , patient declined. HTN, goal below 140/90 12/18/2001 Coronary atherosclerosis of [place] coronary sravanthi ry Alcohol abuse, continuous documented as of this encounter (statuses as of 04/04/2024) Resolved Problems Problem Noted Date Diagnosed Date Resolved Date Prediabetes 07/26/2017 01/21/2022 Overview: Per Prediabetes protocol #1 Palpitations 07/25/2013 09/22/2016 Discomfort in chest 07/25/2013 09/23/19 17 Acute UT, anterior wall 04/04/200712/12 Overview: Modified by Acute [place] Protocol #5. Spasm of muscle 09/22/2016 Overview: back documented as of this encounter (statuses as of 04/04/2024) Immunizations Name Administration Dates Next Due COVID-19 [...] Assigned at Male 09/05/2018 1:46 PM EDT Gender Identity Male 09/05/2018 1:46 PM EDT Sexual Orientation Straight 09/05/2018 1: 46 PM EDT Job Start Date Occupation Industry Not on file Not on file Not on file documented as of this encounter Last Filed Vital Signs Vital Sign Reading Time Taken Comments Blood Pressure 120/82 04/04/2024 11:26 AM EDT Pulse 78 04/04/2024 11:26 AM EDT Temperature 36.8 C (98.2 F) 04/04/2024 11:26 AM E DT Respiratory Rate - - Oxygen Saturation 96% 04/04/2024 11:26 AM EDT Inhaled Oxygen Concentration - - Weight 100.5 kg (221 lb 8 oz) 04/04/2024 11:26 A M EDT Height 188 cm (6' 2.02") 04/04/2024 11:26 AM EDT Body Mass Index 28.43 04/04/2024 11:26 AM EDT documented in this encounter Functional Status Functional Status Response Date of Assess ment Are you deaf or do you have serious difficulty h earing? No 01/25/2022 Are you blind or do you have serious difficulty seeing, even when wearing glasses? No 01/25/2022 Do you have serious difficul ty walking or climbing stairs? (5 years old or older) Yes 01/27/2022 Do you have difficulty dress ing or bathing? (5 years old or older) No 01/25/2022 Because of a physical, menta l, or emotional condition, do you have difficulty doing errands alone such as visiting a doctor s office or shopping? (15 years old or older) No 01/26/20 Cognitive Status Response Date of Assessm ent Because of a physical, menta l, or emotional condition, do you have serious difficulty concentrating, remembering, or making decisions? (5 years old or older) No 01/25/2022 documented as of this encounter Progress Notes * Safia Moses PA-C - 04/04/2024 12:08 PM EDT Subjective Lorne Roe is a 73 year old male that presents for dysphagia 73 y/o male presents c/o dysphagia. He states this has been getting progressively worse over the last 1-2 months. He is now having food getting stuck in his chest, and he has to be careful with what he eats and how well he is chewing. He states that he will have to stop eating at times because foodgets stuck. He has not regurgitated food. He has choked on water, but this is not often. Does not usually choke on food while chewing. Nothing seems to help; this just seems to be getting progressively worse. He denies coughing up blood, vomiting blood, blood in the stool, dark, tarry stools. He does take rolaids at times and zantac to help with heartburn occasionally, but states this feels different than his heartburn. Allergies and medications reviewed. Objective BP 120/82 | Pulse 78 | Temp 36.8 C (98.2 F) | Ht 1.88 m (6' 2.02") | Wt 100.5 kg (221 lb 8 oz)| SpO2 96% | BMI 28.43 kg/m | BSA 2.29 m Body mass index is 28.43 kg/m. BP Readings from Last 3 Encounters: 04/04/24 120/82 02/28/24 118/64 02/27/24 122/56 Wt Readings from Last 3 Encounters: 04/04/24 100.5 kg (221 lb 8 oz) 02/28/24 100 kg (220 lb 6.4 oz) 02/27/24 99.6 kg (219 lb 8 oz) Physical Exam Vitals and nursing note reviewed. Constitutional: General: He is not in acute distress. Appearance: Normal appearance. HENT: Head: Normocephalic and atraumatic. Mouth/Throat: Mouth: Mucous membranes are moist. Pharynx: No oropharyngeal exudate or posterior oropharyngeal erythema. Eyes: General: No scleral icterus. Extraocular Movements: Extraocular movements intact. Conjunctiva/sclera: Conjunctivae normal. Pupils: Pupils are equal, round, and reactive to light. Cardiovascular: Rate and Rhythm: Normal rate. Heart sounds: No murmur heard. No friction rub. No gallop. Pulmonary: Effort: Pulmonary effort is normal. Breath sounds: Normal breath sounds. No stridor. No wheezing, rhonchi or rales. Abdominal: General: Abdomen is flat. Bowel sounds are normal. Palpations: Abdomen is soft. Tenderness: There is no abdominal tenderness. There is no right CVA tenderness or left CVA tenderness. Skin: General: Skin is warm and dry. Findings: No rash. Neurological: General: No focal deficit present. Mental Status: He is alert and oriented to person, place, and time. Psychiatric: Mood and Affect: Mood normal. Behavior: Behavior normal. Assessment and plan 1. Dysphagia, unspecified type -suspect stricture, r/o esophagitis -EGD as ordered -start pantoprazole- sent to pharmacy - UPPER ENDOSCOPY GI REFERRAL OP - Pantoprazole Sodium 20 MG Oral Tablet Delayed Release (Protonix); Take 1 Tablet by mouth in the morning. Dispense: 90 Tablet; Refill: 1 Follow up Follow Up: Return if symptoms worsen or fail to improve. Total time today including reviewing chart before the visit, pertinent labs, imaging reports, face to face time, and documentation time was 20 minutes. The above was discussed and understanding was expressed. Safia Moses PA-C documented in this encounter Nursing Notes * Myrna Cadet CMA - 04/04/2024 11:25 AM EDT Patient presents today with complaints of sore throat for about 1 month. He states it is occasionally sore but mostly he feels a hoarseness in his voice and is having difficulty swallowing, particularly while eating. documented in this encounter Plan of Treatment Upcoming Encounters Date Type Department Care Team (Late st Contact Info) Description 08/01/2024 11:15 AM EST Office Visit Urology, [facility] [address] [facility] [place] [address] Medhat Encinas MD [address] [place] [address] 02/28/2025 9:20 AM EDT Office [facility] [address] [facility] [place] [address] Duglas Philippe III, MD [address] [facility] [place] [address] Scheduled Procedures Name Priority Associated Diagnoses Date/Ti me COLONOSCOPY FLEXIBLE PROXIMA L DIAGNOSTIC Recall History of colonic polyps Scheduled Referrals Name Type Priority Associated Diagnoses Orde r Schedule UPPER ENDOSCOPY GI REFERRAL OP Referral Within 10 days (routine) Dysphagia, unspecified type Ordered: 04/04/2024 Health Maintenance Due Date Last Done Comments [...] this encounter Medical Devices Implanted Type Area Supercharge Repair Supervisor Device Identifier Shelf Expiration Date Model / Serial / Lot 5.6cc, (Pk Of 4) 1in X 2in Mediuminfuse Bone Graft Kit Implanted:Qty: 1 on 01/25/2022 by Marshall Dupont MD at OR [facility] Bone N/A: Spine Lumbar Medtronic Sofamor Danek [id number] 02/10/2022 [id number] / [id number] / [id number] S 25mm X 100mm X 4mm, 10cc Vitoss Bioactive Foam Strip, Synthetic Bone Graft Substitute, Ambient Implanted:Qty: 1 on 01/25/2022 by Marshall Dupont MD at OR [facility] Graft N/A: Spine Lumbar JERAMIE [id number] 03/10/202421010241-1882 / [id number] / [id number] Vitoss Bimodal Foam Pack Implanted:Qty: 1 on 01/25/2022 by Marshall Dupont MD at OR [facility] Graft N/A: Spine Lumbar JERAMIE [id number] 07/10/202321017081-6709 / [id number] / [id number] 25mm X 100mm X 4mm, 10cc Vitoss Bioactive Foam Strip, Synthetic Bone Graft Substitute, Ambient Implanted:Qty: 1 on 01/25/2022 by Marshall Dupont MD at OR [facility] Graft N/A: Spine Lumbar JERAMIE [id number] 03/10/2024 4254-2749 / [id number] / [id number] Screw [place] Poly 06.5x50 Mm - [id number] Implanted:Qty: 8 on 01/25/2022 by Marshall Dupont MD at OR [facility] Screw N/A: Spine Lumbar [employer] 5961-2606 0 / / Set Screw Poly Atr [place] - [id number] Implanted:Qty: 8 on 01/25/2022 by Marshall Dupont MD at OR [facility] Screw N/A: Spine Lumbar JERAMIE : SPINE [id number] 1 / / Dbx 10 [id number] - [id number] - [id number] Implanted:Qty: 1 on 01/25/2022 by Marshall Dupont MD at OR [facility] Tissue - Human N/A: Spine Lumbar MUSCULOSKELETAL TRANSPLANT FND [id number] 09/09/2023 [id number] / [id number] / LOT NA Lens Intraoc 19.5 - [id number] - [id number] Implanted:Qty: 1 on 07/26/2017 by Orion Hernandez MD at OR [facility] Left: Eye BAUSCH & LOMB 02/10/2022 [id number] / [id number] Lens Intraoc 19.5 - [id number] - [id number] Implanted:Qty: 1 on 08/16/2017 by Orion Hernandez MD at OR [facility] Right: Eye BAUSCH & LOMB 12/10/2021 [id number] / [id number] Cage Inter [id number] 12 Deg - [id number] Implanted:Qty: 1 on 01/25/2022 by Marshall Dupont MD at OR [facility] N/A: Spine Lumbar JERAMIE : SPINE 03/02/2024 58-1028-1 208K / / [id number] Cage Inter [id number] 12 Deg Implanted:Qty: 1 on 01/25/2022 by Marshall Dupont MD at OR [facility] N/A: Spine Lumbar JERAMIE : SPINE 09/21/2024 58-1028-1 210K / / [id number] Cage Inter [id number] 15 Deg Implanted:Qty: 1 on 01/25/2022 by Marshall Dupont MD at OR [facility] N/A: Spine Lumbar JERAMIE : SPINE 03/30/2024 58-1028-1 510K / / [id number] Rene Implanted:Qty: 2 on 01/25/2022 by Marshall Dupont MD at OR [facility] N/A: Spine Lumbar JERAMIE : SPINE [id number] / / documented as of this encounter Visit Diagnoses Diagnosis Dysphagia, unspecified type- Primary documented in this encounter Advance Directives * [...] and were consensually agreed upon. Care Teams Interventional Physician Relationship Specialty Start Date End Date Duglas Philippe III, MD [address] [place] [address] PCP - General 04/04/07 documented as of this encounter
--- OUTSIDE RECORDS SUMMARY | 2024-06-30 12:35 | External Medical Summary | Summary of Care ---
Author Name Unknown Organization [facility] Address [address] [facility] [address] Phone [phone] Care Team Providers Care Catalyst Supervisor Name Role Phone Denae LUNA MD, Duglas Bravo Primary Care Provider +06-20 [phone] Encounter Details Date Type Department Care Team (Late st Contact Info) Description 03/01/2024 Orders Only PATIENT PORTAL DO NOT DELETE THIS DEPT USED BY [place] [id number] Allergies No known active allergiesdocumented as of this encounter (statuses as of 03/01/2024) Medications Medication Sig Dispensed Refills Start Date End Date Status ASPIRIN 81 MG PO CHEWIndications:Coron anushka atherosclerosis of [place] coronary artery,HTN, goal below 140/90,Dyslipidemia, goal LDL [...] 0.4 MG Sublingual Tablet Sublingual (Nitrostat)Indication s:Acute [place], anterior wall (HCC) PLACE 1 TAB UNDER THE TONGUE NEEDED FOR CHEST PAIN, MAX 3 DOSES 25 Tablet 11 03/31/2023 Active Metoprolol Tartrate 50 MG Oral Tablet (Lopressor)Indication s:HTN, goal below 140/90 TAKE 1 TABLET BY MOUTH TWICE A DAY 180 Tablet 2 06/16/2023 Active Rosuvastatin Calcium 40 MG Oral Tablet (Crestor)Indications: Dyslipidemia, goal LDL below 70 TAKE 1 TABLET BY MOUTH EVERY DAY IN THE MORNING 90 Tablet 3 07/25/2023 Active Solifenacin Succinate 10 MG Oral Tablet (VESIcare) TAKE ONE TABLET BY MOUTH IN THE MORNING 30 Tablet 6 10/20/2023 Active Ezetimibe 10 MG Oral Tablet (Zetia) TAKE 1 TABLET BY MOUTH EVERY DAY IN THE MORNING 90 Tablet 01/02/2024 Active Chlorthalidone 25 MG Oral Tablet (Hygroton)Indications :HTN, goal below 140/90,Chronic ischemic heart disease TAKE 1/2 TABLET BY MOUTH DAILY 45 Tablet 01/02/2024 Active Losartan Potassium 100 MG Oral Tablet (Cozaar) TAKE 1 TABLET BY MOUTH EVERY DAY 90 Tablet 01/20/2024 Active documented as of this encounter (statuses as of 03/01/2024) Active Problems Problem Noted Date Diagnosed Date S/P lumbar laminectomy 01/25/2022 BPH with obstruction/lower urinary tract symptom s 09/18/2021 Dyslipidemia, goal LDL below 70 09/30/2010 OLD MYOCARDIAL INFARCT 01/02/2009 Overview: Modified by Acute [place] Protocol #5. CHR ISCHEMIC HRT DIS NOS 09/14/2005 ADVANCE DIRECTIVE INFORMATION 03/29/2005 Overview: No, Advance Directive brochure offered , patient declined. HTN, goal below 140/90 12/18/2001 Coronary atherosclerosis of [place] coronary sravanthi ry Alcohol abuse, continuous documented as of this encounter (statuses as of 03/01/2024) Resolved Problems Problem Noted Date Diagnosed Date Resolved Date Prediabetes 07/26/2017 01/21/2022 Overview: Per Prediabetes protocol #1 Palpitations 07/25/2013 09/22/2016 Discomfort in chest 07/25/2013 09/23/19 17 Acute [place], anterior wall 04/04/200712/12 Overview: Modified by Acute [place] Protocol #5. Spasm of muscle 09/22/2016 Overview: back documented as of this encounter (statuses as of 03/01/2024) Immunizations Name Administration Dates Next Due COVID-19 mRNA, LNP-s, No Pre serve, 2-Dose Series (Pfizer) 08/30/2020,08/09/2020 Pneumococcal Conjugate Vacc, 13 Valent (Prevnar) 10/19/2014 Pneumococcal Polysaccharide PPV23 (Pneumovax) 10/21/2015,06/09/2006 Season Influenza, Quad, PF, Adjuvanted, 65+ Yrs, IM (FLUAD) 03/19/2020 Seasonal Influenza, High Dos e, Trivalent, PF, IM (Fluzone HD) 02/28/2024 Seasonal Influenza, PF, 6 M & above, IM , (FluLaval or Fluzone) 04/05/2018,03/30/2017 Seasonal Influenza, Quadriva lent Hd (Fluzone Hd) 04/19/2022,04/07/2021 Seasonal Influenza, Quadriva lent, No Preserve, IM 03/24/2016,04/09/2015 Seasonal Influenza, Trivalen t, (IIV3), with Preserv, (Fluzone) 04/23/2014,04/04/2013,03/23/2012,05/04,04/07/2010,04/11/2009,03/28/2008 ,06/08/2007,06/09/2006 Seasonal Influenza, Trivalen t, Adjuvanted, 65+ YRS, [...] documented as of this encounter Functional Status Functional Status Response [...] No 01/25/2022 documented as of this encounter Plan of Treatment Upcoming Encounters Date Type Department Care Team (Late st Contact Info) Description 09/07/2024 1:30 PM EDT Office Visit Cardiology, [address] [place] [address] [place], [address] [place] [address] 02/28/2025 9:20 AM EDT Office Visit Family Practice [facility] [place] [address] [facility] [place] [address] Duglas Philippe III, MD 200 [facility] [place] [address] Scheduled Procedures Name Priority Associated Diagnoses Date/Ti me COLONOSCOPY FLEXIBLE PROXIMA L DIAGNOSTIC Recall History of colonic polyps Health Maintenance Due Date Last Done Comments Albumin/Creatinine Ratio 1967 Cologuard 1994 Fecal Occult Blood Test 1994 Sigmoidoscopy 1994 Zoster Vaccines (2 of 3) 06/10/2015 04/15/2015 Adult Wellness Visit 01/05/2022 01/05/2021 Depression Screening 01/11/2024 01/10/2023 COVID-19 Vaccine ( - season) 2024 08/30/2020, 08/09/2020 GFR 02/26/2025 02/27/2024, [...] this encounter Medical Devices Implanted Type Area Marzipan Maker Device Identifier Shelf Expiration Date Model / Serial / Lot 5.6cc, (Pk Of 4) 1in X 2in Mediuminfuse Bone Graft Kit Implanted:Qty: 1 on 01/25/2022 by Marshall Dupont MD at OR [facility] Bone N/A: Spine Lumbar Medtronic Sofamor Danek [id number] 02/10/2022 [id number] / [id number] / [id number] 25mm X 100mm X 4mm, 10cc Vitoss Bioactive Foam Strip, Synthetic Bone Graft Substitute, Ambient Implanted:Qty: 1 on 01/25/2022 by Marshall Dupont MD at OR [facility] Graft N/A: Spine Lumbar JERAMIE [id number] 03/10/20240685-3215 / [id number] / [id number] Vitoss Bimodal Foam Pack Implanted:Qty: 1 on 01/25/2022 by Marshall Dupont MD at OR [facility] Graft N/A: Spine Lumbar JERAMIE [id number] 07/10/2023 6294-8462 / [id number] / [id number] 25mm X 100mm X 4mm, 10cc Vitoss Bioactive Foam Strip, Synthetic Bone Graft Substitute, Ambient Implanted:Qty: 1 on 01/25/2022 by Marshall Dupont MD at OR [facility] Graft N/A: Spine Lumbar JERAMIE [id number] 03/10/2024 4713-8313 / [id number] / [id number] Screw Free Soil Poly 06.5x50 Mm - [id number] Implanted:Qty: 8 on 01/25/2022 by Marshall Dupont MD at OR [facility] Screw N/A: Spine Lumbar K2M INC 1491-0574 0 / / Set Screw Poly Atr Free Soil - [id number] Implanted:Qty: 8 on 01/25/2022 by Marshall Dupont MD at OR [facility] Screw N/A: Spine Lumbar JERAMIE : SPINE [id number] 1 / / Dbx 10 [id number] - [id number] - [id number] Implanted:Qty: 1 on 01/25/2022 by Marshall Dupont MD at OR [facility] Tissue - Human N/A: Spine Lumbar MUSCULOSKELETAL TRANSPLANT FND [id number] 09/09/2023 [id number] / [id number] / LOT NA Lens Intraoc 19.5 - [id number] - [id number] Implanted:Qty: 1 on 07/26/2017 by Orion Hernandez MD at OR [facility] Left: Eye BAUSCH & LOMB 02/10/2022 [id number] / [id number] / [id number] Lens Intraoc 19.5 - [id number] - [id number] Implanted:Qty: 1 on 08/16/2017 by Orion Hernandez MD at OR [facility] Right: Eye BAUSCH & LOMB 12/10/2021 [id number] / [id number] / [id number] Cage Inter [id number] 12 Deg - [id number] Implanted:Qty: 1 on 01/25/2022 by Marshall Dupont MD at OR [facility] N/A: Spine Lumbar JERAMIE : SPINE 03/02/2024 58-1028-1 208K / / [id number] Cage Inter [id number] 12 Deg Implanted:Qty: 1 on 01/25/2022 by Marshall Dupont MD at OR [facility] N/A: Spine Lumbar JERAMIE : SPINE 09/21/2024 58-1028-1 210K / / [id number] Cage Inter [id number] 15 Deg Implanted:Qty: 1 on 01/25/2022 by Marshall Dupont MD at OR [facility] N/A: Spine Lumbar JERAMIE : SPINE 03/30/2024 58-1028-1 510K / / [id number] Rene Implanted:Qty: 2 on 01/25/2022 by Marshall Dupont MD at OR [facility] N/A: Spine Lumbar JERAMIE : SPINE [id number] / / documented as of this [...] and were consensually agreed upon. Care Teams Catalyst Supervisor Relationship Specialty Start Date End Date Duglas Philippe III, MD 200 [facility] [place], [place] [address] PCP - General 04/04/07 documented as of this encounter
--- OUTSIDE RECORDS SUMMARY | 2024-06-30 12:35 | External Medical Summary ---
Author Name Unknown Address Unknown Organization K01:[facility] [address] [place] [address] Laboratory Report Ordering Provider Test Date Status PANFILO JOSEPH 02/27/2024 08:59:58 Final Observation Date Value Abnormality Reference (Units ) Status PSA 02/27/2024 08:59:58 0.67 <4.10 (ng/ mL) Final Performing Location [facility] [address] [place] [address]
--- OUTSIDE RECORDS SUMMARY | 2024-06-30 12:35 | External Medical Summary | Summary of Care ---
Author Name Unknown Organization [facility] Address [address] [facility] [place] [address] Phone [phone] Care Team Providers Care Private Branch Exchange Installer Name Role Phone Denae LUNA MD, Duglas Bravo Primary Care Provider +06-20 [phone] Encounter Details Date Type Department Care Team (Late st Contact Info) Description 02/28/2024 Telephone Urology, [facility] [address] [facility] [place] [address] Medhat Encinas MD [address] [place] [address] Allergies No known active allergiesdocumented as of this encounter (statuses as of 03/01/2024) Medications Medication Sig Dispensed Refills Start Date End Date Status ASPIRIN 81 MG PO CHEWIndications:Arash nary atherosclerosis of [place] coronary artery,HTN, goal below 140/90,Dyslipidemia, goal LDL below 70 take one tablet daily 100 Tab 3 04/05/2011 Active CoQ10 100 MG Oral Capsule Take by mouth 1 Capsule daily . 30 Capsule 5 09/11/2021 Active Sildenafil Citrate 20 MG Oral Tablet (Revatio)Indications :Erectile dysfunction, unspecified erectile dysfunction type 2-5 tabs as needed erectile dysfunction 30 Tablet 2 01/10/2023 Active Nitroglycerin 0.4 MG Sublingual Tablet Sublingual (Nitrostat)Indicatio ns:Acute OR, anterior wall (HCC) PLACE 1 TAB UNDER THE TONGUE NEEDED FOR CHEST PAIN, MAX 3 DOSES 25 Tablet 11 03/31/2023 Active Metoprolol Tartrate 50 MG Oral Tablet (Lopressor)Indicatio ns:HTN, goal below 140/90 TAKE 1 TABLET BY MOUTH TWICE A DAY 180 Tablet 2 06/16/2023 Active Rosuvastatin Calcium 40 MG Oral Tablet (Crestor)Indications :Dyslipidemia, goal LDL below 70 TAKE 1 TABLET [...] 01/02/2024 Active Chlorthalidone 25 MG Oral Tablet (Hygroton)Indication s:HTN, goal below 140/90,Chronic ischemic heart disease TAKE 1/2 TABLET BY MOUTH DAILY 45 Tablet 01/02/2024 Active Losartan Potassium 100 MG Oral Tablet (Cozaar) TAKE 1 TABLET BY MOUTH EVERY DAY 90 Tablet 01/20/2024 Active Apple Cider Vinegar 300 MG TABSIndications:take s 2 tablespoons daily Take 1 Tab by mouth daily. Indications: takes 2 tablespoons daily 02/28/20 24 Discontinu ed(End of Procedure) Diclofenac Sodium 1 % External Gel (Voltaren) Apply topically to affected area 2 times a day as needed for Pain, Moderate. Apply to to the affected areas 150 g 1 05/18/2022 02/28/20 24 Discontinu ed(End of Procedure) Mirabegron ER 25 MG Oral Tablet Extended Release 24 Hour (Myrbetriq) Take 1 Tablet by mouth in the morning. 30 Tablet 6 08/02/2023 02/28/20 24 Discontinu ed(End of Procedure) documented as of this encounter (statuses as of 03/01/2024) Active Problems Problem Noted Date Diagnosed Date S/P lumbar laminectomy 01/25/2022 BPH with obstruction/lower urinary tract symptom s 09/18/2021 Dyslipidemia, goal LDL below 70 09/30/2010 OLD MYOCARDIAL INFARCT 01/02/2009 Overview: Modified by Acute [place] Protocol #5. CHR ISCHEMIC HRT DIS NOS 09/14/2005 ADVANCE DIRECTIVE INFORMATION 03/29/2005 Overview: No, Advance Directive brochure offered , patient declined. 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 Spasm of muscle 09/22/2016 Overview: [...] No 01/25/2022 documented as of this encounter Miscellaneous Notes * Telephone Encounter - Nichole Rice OSA - 03/01/2024 9:10 AM EDT Pt is scheduled for Return visit in July. Patient is aware. * Telephone Encounter - Jesika Tobias LPN - 02/28/2024 9:38 AM EDT MyG sent to pt * Telephone Encounter - Medhat Encinas MD - 02/28/2024 9:17 AM EDT Okay to notify patient his PSA is normal. Follow-up will need to be scheduled if he wishes to obtain refills from our service. Thanks, HM documented in this encounter Plan of Treatment Upcoming Encounters Date Type Department Care Team (Late st Contact Info) Description 08/01/2024 11:15 AM EST Office Visit Urology, [facility] [address] [facility] [place] [address] Medhat Encinas MD [address] [facility] [place] [address] 09/07/2024 1:30 PM EDT Office Visit Cardiology, [facility] [address] [place] [address] Guerrero Del Rio DO [address] [place] [address] 02/28/2025 9:20 AM EDT Office Visit Family Practice [facility] [address] [facility] [place] [address] Duglas Philippe III, MD [address] [facility] [place] [address] Scheduled Procedures Name Priority Associated Diagnoses Date/Ti [...] this encounter Medical Devices Implanted Type Area Rural Health Consultant Device Identifier Shelf Expiration Date Model / Serial / Lot 5.6cc, (Pk Of 4) 1in X 2in Mediuminfuse Bone Graft Kit Implanted:Qty: 1 on 01/25/2022 by Marshall Dupont MD at OR [facility] Bone N/A: Spine Lumbar Medtronic Sofamor Danek [id number] 02/10/2022 [id number] / [id number] / [id number] S 25mm X 100mm X 4mm, 10cc Vitoss Bioactive Foam Strip, Synthetic Bone Graft Substitute, Ambient Implanted:Qty: 1 on 01/25/2022 by Marshall Dupont MD at OR [facility] Graft N/A: Spine Lumbar JERAMIE [id number] 03/10/202421015638-6281 / [id number] / [id number] Vitoss Bimodal Foam Pack Implanted:Qty: 1 on 01/25/2022 by Marshall Dupont MD at OR [facility] Graft N/A: Spine Lumbar JERAMIE [id number] 07/10/2023 7032-3326 / [id number] / [id number] 25mm X 100mm X 4mm, 10cc Vitoss Bioactive Foam Strip, Synthetic Bone Graft Substitute, Ambient Implanted:Qty: 1 on 01/25/2022 by Marshall Dupont MD at OR [facility] Graft N/A: Spine Lumbar JERAMIE [id number] 03/10/2024 8025-4295 / [id number] / [id number] Screw [place] Poly 06.5x50 Mm - [id number] Implanted:Qty: 8 on 01/25/2022 by Marshall Dupont MD at OR [facility] Screw N/A: Spine Lumbar K2M INC 0938-2078 0 / / Set Screw Poly Atr [place] - [id number] Implanted:Qty: 8 on 01/25/2022 by Marshall Dupont MD at OR [facility] Screw N/A: Spine Lumbar JERAMIE : SPINE 6179-3209 1 / / Dbx 10cc [id number] - [id number] - [id number] Implanted:Qty: 1 on 01/25/2022 by Marshall Dupont MD at OR [facility] Tissue - Human N/A: Spine Lumbar MUSCULOSKELETAL TRANSPLANT FND [id number] 09/09/2023 [id number] / [id number] / LOT NA Lens Intraoc 19.5 - [id number] - [id number] Implanted:Qty: 1 on 07/26/2017 by Orion Hernandez MD at OR [facility] Left: Eye BAUSCH & LOMB 02/10/2022 [id number] / [id number] / [id number] Lens Intraoc 19.5 - [id number] - [id number] Implanted:Qty: 1 on 08/16/2017 by Orion Hernandez MD at OR [facility] Right: Eye BAUSCH & LOMB 12/10/2021 [id number] / [id number] / [id number] Cage Inter [id number] 12 Deg - [id number] Implanted:Qty: 1 on 01/25/2022 by Marshall Dupont MD at OR [facility] N/A: Spine Lumbar JERAMIE : SPINE 03/02/2024 58-1028-1 208K / / [id number] Cage Inter [id number] 12 Deg Implanted:Qty: 1 on 01/25/2022 by Marshall Dupont MD at OR [facility] N/A: Spine Lumbar JERAMIE : SPINE 09/21/2024 58-1028-1 210K / / [id number] Cage Inter [id number] 15 Deg Implanted:Qty: 1 on 01/25/2022 by Marshall Dupont MD at OR [facility] N/A: Spine Lumbar JERAMIE : SPINE 03/30/2024 58-1028-1 510K / / [id number] Rene Implanted:Qty: 2 on 01/25/2022 by Marshall Dupont MD at OR [facility] N/A: Spine Lumbar JERAMIE : SPINE [id number] 0 / / documented as of this [...] and were consensually agreed upon. Care Teams Private Branch Exchange Installer Relationship Specialty Start Date End Date Duglas Philippe III, MD [address] [place] [address] PCP - General 04/04/07 documented as of this encounter
--- OUTSIDE RECORDS SUMMARY | 2024-06-30 12:35 | External Medical Summary | Summary of Care ---
Author Name Unknown Organization [facility] Address [address] [facility] [address] Phone [phone] Care Team Providers Care Mixed Livestock Farm Worker Name Role Phone Denae LUNA MD, Damon Bravo Primary Care Provider [phone] [phone] Reason for Visit * Reason Comments eRx-Medication Refill Encounter Details Date Type Department Care Team (Late st Contact Info) Description 03/31/[facility]24 [facility] [address] [facility] [place] [address] Damon White III, MD [address] [facility] [place] [address] HTN, goal below 140/90; CHR ISCHEMIC HRT DIS NOS Allergies No known active allergiesdocumented as of this encounter (statuses as of 04/02/2024) Medications Medication Sig Dispensed Refills Start Date End Date Status ASPIRIN 81 MG PO CHEWIndications:Cor onary atherosclerosis of [place] coronary artery,HTN, goal below 140/90,Dyslipidemia , goal LDL below 70 take one tablet daily 100 Tab 3 1 Active CoQ10 100 MG Oral Capsule Take by mouth 1 Capsule daily . 30 Capsule 5 2 Active Sildenafil Citrate 20 MG Oral Tablet (Revatio)Indication s:Erectile dysfunction, unspecified erectile dysfunction type 2-5 tabs as needed erectile dysfunction 30 Tablet 2 3 Active Nitroglycerin 0.4 MG Sublingual Tablet Sublingual (Nitrostat)Indicati ons:Acute [place], anterior wall (HCC) PLACE 1 TAB UNDER THE TONGUE NEEDED FOR CHEST PAIN, MAX 3 DOSES 25 Tablet 11 3 Active Rosuvastatin Calcium 40 MG Oral Tablet (Crestor)Indication s:Dyslipidemia, goal LDL below 70 TAKE 1 TABLET BY MOUTH EVERY DAY IN THE MORNING 90 Tablet 3 4 Active Solifenacin Succinate 10 MG Oral Tablet (VESIcare) TAKE ONE TABLET BY MOUTH IN THE MORNING 30 Tablet 6 4 Active Losartan Potassium 100 MG Oral Tablet (Cozaar) TAKE 1 TABLET BY MOUTH EVERY DAY 90 Tablet 4 Active Metoprolol Tartrate 50 MG Oral Tablet (Lopressor)Indicati ons:HTN, goal below 140/90 TAKE 1 TABLET BY MOUTH TWICE A DAY 180 Tablet 3 4 Active Ezetimibe 10 MG Oral Tablet (Zetia) TAKE 1 TABLET BY MOUTH EVERY DAY IN THE MORNING 90 Tablet 3 4 Active Chlorthalidone 25 MG Oral Tablet (Hygroton)Indicatio ns:HTN, goal below 140/90,Chronic ischemic heart disease TAKE 1/2 TABLET BY MOUTH DAILY 45 Tablet 3 4 Active Metoprolol Tartrate 50 MG Oral Tablet (Lopressor)Indicati ons:HTN, goal below 140/90 TAKE 1 TABLET BY MOUTH TWICE A DAY 180 Tablet 2 4 04/02/20 24 Discontinued Ezetimibe 10 MG Oral Tablet (Zetia) TAKE 1 TABLET BY MOUTH EVERY DAY IN THE MORNING 90 Tablet 4 04/02/20 24 Discontinued Chlorthalidone 25 MG Oral Tablet (Hygroton)Indicatio ns:HTN, goal below 140/90,Chronic ischemic heart disease TAKE 1/2 TABLET BY MOUTH DAILY 45 Tablet 4 04/02/20 24 Discontinued documented as of this encounter (statuses as of 04/02/2024) Active Problems Problem Noted Date Diagnosed Date S/P lumbar laminectomy 01/25/2022 BPH with obstruction/lower urinary tract symptom s 09/18/2021 Dyslipidemia, goal LDL below 70 09/30/2010 OLD MYOCARDIAL INFARCT 01/02/2009 Overview: Modified by Acute [place] Protocol #5. CHR ISCHEMIC HRT DIS NOS 09/14/2005 ADVANCE DIRECTIVE INFORMATION 03/29/2005 Overview: No, Advance Directive brochure offered , patient declined. 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 Spasm of muscle 09/22/2016 Overview: back documented as of this encounter (statuses as of 04/02/2024) Immunizations Name Administration Dates Next Due COVID-19 [...] (15 years old or older) No 01/26/20 22 Cognitive Status Response Date of Assessm ent Because of a physical, menta l, or emotional condition, do you have serious difficulty concentrating, remembering, or making decisions? (5 years old or older) No 01/25/2022 documented as of this encounter Miscellaneous Notes * Telephone Encounter - Shlomo Burden RPh - 04/02/2024 10:55 AM EDT Signed Prescriptions: Disp Refills Metoprolol Tartrate 50 MG Oral Tablet (Lop*180 Ta*3 Sig: TAKE 1TABLET BY MOUTH TWICE A DAYAuthorizing Provider: DAMON WHITE III User: SHLOMO BURDEN Ezetimibe 10 MG Oral Tablet (Zetia) 90 Tab*3 Sig: TAKE 1 TABLET BY MOUTH EVERY DAY IN THE MORNIN GAuthorizing Provider: DAMON WHITE III User: SHLOMO BURDEN Chlorthalidone 25MG Oral Tablet (Hygroton)45 Tab*3 Sig: TAKE 1/2 TABLET BY MOUTH DAILYAuthorizing Provider: DAMON WHITE III User: SHLOMO BURDEN documented in this encounter Plan of Treatment Upcoming Encounters Date Type Department Care Team (Late st Contact Info) Description 08/01/2024 11:15 AM EST Office Visit Urology, [facility] [address] [facility] [place] [address] Medhat Encinas MD [address] [place] [address] 02/28/2025 9:20 AM EDT Office Visit Family Practice [facility] [place] [address] [facility] [place] [address] Damon White III, MD [address] [facility] [place] [address] Scheduled Procedures Name Priority Associated Diagnoses Date/Ti [...] this encounter Medical Devices Implanted Type Area Gas Shovel Operator Device Identifier Shelf Expiration Date Model / Serial / Lot 5.6cc, (Pk Of 4) 1in X 2in Mediuminfuse Bone Graft Kit Implanted:Qty: 1 on 01/25/2022 by Marshall Dupont MD at OR [facility] Bone N/A: Spine Lumbar Medtronic Sofamor Danek [id number] 02/10/2022 [id number] / [id number] / [id number] S 25mm X 100mm X 4mm, 10cc Vitoss Bioactive Foam Strip, Synthetic Bone Graft Substitute, Ambient Implanted:Qty: 1 on 01/25/2022 by Marshall Dupont MD at OR [facility] Graft N/A: Spine Lumbar JERAMIE [id number] 03/10/202421013667-6948 / [id number] / [id number] Vitoss Bimodal Foam Pack Implanted:Qty: 1 on 01/25/2022 by Marshall Dupont MD at OR [facility] Graft N/A: Spine Lumbar JERAMIE [id number] 07/10/20233261-8061 / [id number] / [id number] 25mm X 100mm X 4mm, 10cc Vitoss Bioactive Foam Strip, Synthetic Bone Graft Substitute, Ambient Implanted:Qty: 1 on 01/25/2022 by Marshall Dupont MD at OR [facility] Graft N/A: Spine Lumbar JERAMIE [id number] 03/10/202421010019-0101 / [id number] / [id number] Screw [place] Poly 06.5x50 Mm - [id number] Implanted:Qty: 8 on 01/25/2022 by Marshall Dupont MD at OR [facility] Screw N/A: Spine Lumbar K2M INC 6077-0217 0 / / Set Screw Poly Atr [place] - [id number] Implanted:Qty: 8 on 01/25/2022 by Marshall Dupont MD at OR [facility] Screw N/A: Spine Lumbar JERAMIE : SPINE 7204-3065 1 / / Dbx 10cc 907758 - [id number] 0028 - [id number] Implanted:Qty: 1 on 01/25/2022 by Marshall Dupont MD at OR [facility] Tissue - Human N/A: Spine Lumbar MUSCULOSKELETAL TRANSPLANT FND [id number] 09/09/2023 140590 / [id number] / LOT NA Lens Intraoc 19.5 - [id number] - [id number] Implanted:Qty: 1 on 07/26/2017 by Orion Hernandez MD at OR [facility] Left: Eye BAUSCH & LOMB 02/10/2022 [id number] / [id number] Lens Intraoc 19.5 - [id number] - [id number] Implanted:Qty: 1 on 08/16/2017 by Orion Hernandez MD at OR [facility] Right: Eye BAUSCH & LOMB 12/10/2021 [id number] / [id number] Cage Inter [id number] 12 Deg - [id number] Implanted:Qty: 1 on 01/25/2022 by Marshall Dupont MD at OR [facility] N/A: Spine Lumbar JERAMIE : SPINE 03/02/2024 58-1028-1 208K / / [id number] Cage Inter [id number] 12 Deg Implanted:Qty: 1 on 01/25/2022 by Marshall Dupont MD at OR [facility] N/A: Spine Lumbar JERAMIE : SPINE 09/21/2024 58-1028-1 210K / / [id number] Cage Inter [id number] 15 Deg Implanted:Qty: 1 on 01/25/2022 by Marshall Dupont MD at OR [facility] N/A: Spine Lumbar JERAMIE : SPINE 03/30/2024 58-1028-1 510K / / [id number] Rene Implanted:Qty: 2 on 01/25/2022 by Marshall Dupont MD at OR [facility] N/A: Spine Lumbar JERAMIE : SPINE 101-36896 0 / / documented as of this encounter Visit Diagnoses Diagnosis HTN, goal below 140/90 Unspecified essential hypertension CHR ISCHEMIC HRT DIS NOS Chronic ischemic heart disease, unspecified documented in this encounter Advance Directives * [...] and were consensually agreed upon. Care Teams Mixed Livestock Farm Worker Relationship Specialty Start Date End Date Denae LUNA, Damon Bravo MD [address] [facility] [place], [place] [address] PCP - General 04/04/07 documented as of this encounter
--- OUTSIDE RECORDS SUMMARY | 2024-06-30 12:35 | External Medical Summary | Summary of Care ---
Author Name Unknown Organization [facility] Address [address] [facility] [address] Phone [phone] Care Team Providers Care Blueprint Developer Name Role Phone Denae LUNA MD, Duglas Bravo Primary Care Provider +06-20 [phone] Reason for Visit * Reason Onset Date Comments Test Results 02/29/2024 Encounter Details Date Type Department Care Team (Late st Contact Info) Description 02/29/2024 Telephone Cardiology, [facility] [address] [facility] [address] Guerrero Del Rio, DO [address] [facility] [place] [address] Test Results Allergies No known active allergiesdocumented as of this encounter (statuses as of 03/07/2024) Medications Medication Sig Dispensed Refills Start Date End Date Status ASPIRIN 81 MG PO CHEWIndications:Coron anushka atherosclerosis of [place] coronary artery,HTN, goal below 140/90,Dyslipidemia, goal LDL [...] 0.4 MG Sublingual Tablet Sublingual (Nitrostat)Indication s:Acute CT, anterior wall (HCC) PLACE 1 TAB UNDER [...] as of this encounter (statuses as of 03/07/2024) Active Problems Problem Noted Date Diagnosed Date S/P lumbar laminectomy 01/25/2022 BPH with obstruction/lower urinary tract symptom s 09/18/2021 Dyslipidemia, goal LDL below 70 09/30/2010 OLD MYOCARDIAL INFARCT 01/02/2009 Overview: Modified by Acute CT Protocol #5. CHR ISCHEMIC HRT DIS NOS 09/14/2005 ADVANCE DIRECTIVE INFORMATION 03/29/2005 Overview: No, Advance Directive brochure offered , patient declined. 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 Spasm of muscle 09/22/2016 Overview: back documented as of this encounter (statuses as of 03/07/2024) Immunizations Name Administration Dates Next Due COVID-19 [...] encounter Miscellaneous Notes * Telephone Encounter - Sylvia Winters CMA - 02/29/2024 10:54 AM EDT ----- Message from Guerrero Del Rio DO sent at 02/28/2024 4:18 PM EDT ----- LDL well controlled. Continue current medications. documented in this encounter Plan of Treatment Upcoming Encounters Date Type Department Care Team (Late st Contact Info) Description 08/01/2024 11:15 AM EST Office Visit Urology, [facility] [address] [place] [address] Medhat Encinas MD [address] [place] [address] 09/07/2024 1:30 PM EDT Office Visit Cardiology, [facility] [address] [place] [address] Guerrero Del Rio DO 132 [facility] [place] [address] 02/28/2025 9:20 AM EDT Office Visit Family Practice [facility] 200 [facility] [place], [place] [address] Duglas Philippe III, MD [address] [facility] [place] [address] Scheduled Procedures Name Priority Associated Diagnoses Date/Ti [...] this encounter Medical Devices Implanted Type Area Press Smith Helper Device Identifier Shelf Expiration Date Model / Serial / Lot 5.6cc, (Pk Of 4) 1in X 2in Mediuminfuse Bone Graft Kit Implanted:Qty: 1 on 01/25/2022 by Marshall Dupont MD at OR [facility] Bone N/A: Spine Lumbar Medtronic Sofamor Danek [id number] 02/10/2022 [id number] / [id number] / [id number] 25mm X 100mm X 4mm, 10cc Vitoss Bioactive Foam Strip, Synthetic Bone Graft Substitute, Ambient Implanted:Qty: 1 on 01/25/2022 by Marshall Dupont MD at OR [facility] Graft N/A: Spine Lumbar JERAMIE [id number] 03/10/2024 7165-3362 / [id number] / [id number] Vitoss Bimodal Foam Pack Implanted:Qty: 1 on 01/25/2022 by Marshall Dupont MD at OR [facility] Graft N/A: Spine Lumbar JERAMIE [id number] 07/10/2023 1791-0463 / [id number] / [id number] 25mm X 100mm X 4mm, 10cc Vitoss Bioactive Foam Strip, Synthetic Bone Graft Substitute, Ambient Implanted:Qty: 1 on 01/25/2022 by Marshall Dupont MD at OR [facility] Graft N/A: Spine Lumbar JERAMIE [id number] 03/10/2024 0540-1615 / [id number] / [id number] Screw [place] Poly 06.5x50 Mm - [id number] Implanted:Qty: 8 on 01/25/2022 by Marshall Dupont MD at OR [facility] Screw N/A: Spine Lumbar K2M INC 9117-6695 0 / / Set Screw Poly Atr [place] - [id number] Implanted:Qty: 8 on 01/25/2022 by Marshall Dupont MD at OR [facility] Screw N/A: Spine Lumbar JERAMIE : SPINE 5269-7712 1 / / Dbx 10cc 708216 - [id number] - [id number] Implanted:Qty: 1 on 01/25/2022 by Marshall Dupont MD at OR [facility] Tissue - Human N/A: Spine Lumbar MUSCULOSKELETAL TRANSPLANT FND [id number] 09/09/2023 [id number] / [id number] / LOT NA Lens Intraoc 19.5 - [id number] - [id number] Implanted:Qty: 1 on 07/26/2017 by Orion Hernandez MD at OR [facility] Left: Eye BAUSCH & LOMB 02/10/2022 [id number] / [id number] / [id number] Lens Intraoc 19.5 - [id number] - [id number] Implanted:Qty: 1 on 08/16/2017 by Orion Hernandez MD at OR [facility] Right: Eye BAUSCH & LOMB 12/10/2021 [id number] / [id number] Cage Inter 19t95p8-99rj 12 Deg - [id number] Implanted:Qty: 1 on 01/25/2022 by Marshall Dupont MD at OR [facility] N/A: Spine Lumbar JERAMIE : SPINE 03/02/2024 58-1028-1 208K / / [id number] Cage Inter [id number] 12 Deg Implanted:Qty: 1 on 01/25/2022 by Marshall Dupont MD at OR [facility] N/A: Spine Lumbar JERAMIE : SPINE 09/21/2024 58-1028-1 210K / / [id number] Cage Inter [id number] 15 Deg Implanted:Qty: 1 on 01/25/2022 by Marshall Dupont MD at OR [facility] N/A: Spine Lumbar JERAMIE : SPINE 03/30/2024 58-1028-1 510K / / [id number] Rene Implanted:Qty: 2 on 01/25/2022 by Marshall Dupont MD at OR [facility] N/A: Spine Lumbar JERAMIE : SPINE [id number] 0 / / documented as of this [...] and were consensually agreed upon. Care Teams Blueprint Developer Relationship Specialty Start Date End Date Duglas Philippe III, MD [address] [place] [address] PCP - General 04/04/07 documented as of this encounter
--- OUTSIDE RECORDS SUMMARY | 2024-06-30 12:35 | External Medical Summary ---
Author Name Unknown Address Unknown Organization [id number]:[facility] [place] - [address] [place] [address] Laboratory Report Ordering Provider Test Date Status MEHRDAD SANCHEZ 02/27/2024 08:59:58 Final Observation Date Value Abnormality Reference (Units ) Status Triglyceride 02/27/2024 08:59:58 98 <=174 ( mg/dL) Final Triglyceride Reference Range s (mg/dL):
<150 Acceptable
150-174 Borderline high
175-499 High
>=500 Very high Cholesterol 02/27/2024 08:59:58 100 <200 (mg /dL) Final Total Cholesterol Reference Ranges (mg/dL):
<200 Desirable
200-239 Borderline high
>=240 High HDL 02/27/2024 08:59:58 34 Below low normal >39 (mg/dL) Final HDL Cholesterol Reference Ra nges (mg/dL):
>=60 High (Desirable)
<50 Low (Undesirable) For Females
<40 Low (Undesirable) For Males NON-HDL CHOLESTEROL 02/27/2024 08:59:58 66 <=159 (mg/dL) Final Non-HDL Cholesterol Referenc e Range (mg/dL):
<100 Target level for high risk ASCVD patient
<130 Optimal for general population
130-159 Near optimal for general population
160-189 Borderline High
190-219 High
>=220 Very High LDL, (calculated) 02/27/2024 08:59:58 46 <= 129 (mg/dL) Final LDL Cholesterol Reference Ra nges (mg/dL):
<70 Target level for high risk ASCVD patient
<100 Optimal for general population
100-129 Near optimal for general population
130-159 Borderline high
160-189 High
>=190 Very high Performing Location [facility] [place] - [address] [facility] [address]
--- OUTSIDE RECORDS SUMMARY | 2024-06-30 12:35 | External Medical Summary | Summary of Care ---
Author Name Unknown Organization [facility] Address [address] [place] [facility] [place] [place] [place] [address] Phone [phone] Care Team Providers Care Mechanical Product Design Engineer Name Role Phone Denae LUNA MD, Duglas Bravo Primary Care Provider [phone] Encounter Details Date Type Department Care Team (Late st Contact Info) Description 02/28/2024 Telephone Urology, [facility] [address] [facility] [place] [address] Medhat Encinas MD [address] [place] [address] Allergies No known active allergiesdocumented as of this encounter (statuses as of 02/28/2024) Medications Medication Sig Dispensed Refills Start Date End Date Status ASPIRIN 81 MG PO CHEWIndications:Arash nary atherosclerosis of [place] coronary artery,HTN, goal below 140/90,Dyslipidemia, goal LDL [...] 0.4 MG Sublingual Tablet Sublingual (Nitrostat)Indicatio ns:Acute CT, anterior wall (HCC) PLACE 1 TAB [...] as of this encounter (statuses as of 02/28/2024) Active Problems Problem Noted Date Diagnosed Date S/P lumbar laminectomy 01/25/2022 BPH with obstruction/lower urinary tract symptom s 09/18/2021 Dyslipidemia, goal LDL below 70 09/30/2010 OLD MYOCARDIAL INFARCT 01/02/2009 Overview: Modified by Acute CT Protocol #5. CHR ISCHEMIC HRT DIS NOS 09/14/2005 ADVANCE DIRECTIVE INFORMATION 03/29/2005 Overview: No, Advance Directive brochure offered , patient declined. HTN, goal below 140/90 12/18/2001 Coronary atherosclerosis of [place] coronary sravanthi ry Alcohol abuse, continuous documented as of this encounter (statuses as of 02/28/2024) Resolved Problems Problem Noted Date Diagnosed Date Resolved Date Prediabetes 07/26/2017 01/21/2022 Overview: Per Prediabetes protocol #1 Palpitations 07/25/2013 09/22/2016 Discomfort in chest 07/25/2013 09/23/[address], anterior wall 04/04/200712/12 Overview: Modified by Acute CT Protocol #5. Spasm of muscle 09/22/2016 Overview: back documented as of this encounter (statuses as of 02/28/2024) Immunizations Name Administration Dates Next Due COVID-19 mRNA, LNP-s, No Pre serve, 2-Dose Series (Pfizer) 08/30/2020,08/09/2020 Pneumococcal Conjugate Vacc, 13 Valent (Prevnar) 10/19/2014 Pneumococcal Polysaccharide PPV23 (Pneumovax) 10/21/2015,06/09/2006 Season Influenza, Quad, PF, Adjuvanted, 65+ Yrs, IM (FLUAD) 03/19/2020 Seasonal Influenza, PF, 6 M & above, [...] encounter Miscellaneous Notes * Telephone Encounter - Jesika Tobias LPN [...] 09/07/2024 1:30 PM EDT Office Visit Cardiology, [facility] [address] [place] [address] [place], [address] [place] [address] Scheduled Procedures Name Priority Associated Diagnoses Date/Ti me COLONOSCOPY FLEXIBLE PROXIMA L DIAGNOSTIC Recall History of colonic polyps Health Maintenance Due Date Last Done Comments Albumin/Creatinine Ratio 1967 Cologuard 1994 Fecal Occult Blood Test 1994 Sigmoidoscopy 1994 Zoster Vaccines (2 of 3) 06/10/2015 04/15/2015 Adult Wellness Visit 01/05/2022 01/05/2021 Depression Screening 01/11/2024 01/10/2023 COVID-19 Vaccine ( season) 2024 08/30/2020, 08/09/2020 Influenza Vaccine (FLU shot) (#1) 2024 04/19/2022, 04/07/2021, 03/19/2020, Additional history exists GFR 02/26/2025 02/27/2024, 12/11, 01/28/2022, Additional history exists Colonoscopy 05/16/2026 05/16/2023, 09/2022, 04/10/2019, Additional history exists Colorectal Cancer Screening 05/16/2026 DTap/Tdap Vaccines (3 - Td or Tdap) 07/25/2030 07/25/2020, 09/07/2007 Pneumococcal Vaccine: 65+ Years Completed 10/21/2015, 10/19/2014, 06/09/2006 AAA Screening Completed 12/31/2021, 08/19/2014 HPV (Gardasil) Vaccine Aged Out No lo nger eligible based on patient's age to complete this topic Hepatitis B Vaccine Aged Out No longe r eligible based on patient's age to complete this topic MENINGOCOCCAL (MENACTRA/MENVEO) Aged Out No longer eligible based on patient's age to complete this topic documented as of this encounter Medical Devices Implanted Type Area Oracle Engineer Device Identifier Shelf Expiration Date Model / Serial / Lot 5.6cc, (Pk Of 4) 1in X 2in Mediuminfuse Bone Graft Kit Implanted:Qty: 1 on 01/25/2022 by Marshall Dupont MD at OR [facility] Bone N/A: Spine Lumbar Medtronic Sofamor Danek [id number] 02/10/2022 [id number] / [id number] / [id number] S 25mm X 100mm X 4mm, 10cc Vitoss Bioactive Foam Strip, Synthetic Bone Graft Substitute, Ambient Implanted:Qty: 1 on 01/25/2022 by Marshall Dupont MD at OR [facility] Graft N/A: Spine Lumbar JERAMIE [id number] 03/10/2024 5900-4798 / [id number] / [id number] Vitoss Bimodal Foam Pack Implanted:Qty: 1 on 01/25/2022 by Marshall Dupont MD at OR [facility] Graft N/A: Spine Lumbar JERAMIE [id number] 07/10/2023 5708-8221 / [id number] / [id number] 25mm X 100mm X 4mm, 10cc Vitoss Bioactive Foam Strip, Synthetic Bone Graft Substitute, Ambient Implanted:Qty: 1 on 01/25/2022 by Marshall Dupont MD at OR [facility] Graft N/A: Spine Lumbar JERAMIE [id number] 03/10/2024 0890-8685 / [id number] / [id number] Screw [place] Poly 06.5x50 Mm - [id number] Implanted:Qty: 8 on 01/25/2022 by Marshall Dupont MD at OR [facility] Screw N/A: Spine Lumbar [employer] 0360-1760 0 / / Set Screw Poly Atr [place] - [id number] Implanted:Qty: 8 on 01/25/2022 by Marshall Dupont MD at OR [facility] Screw N/A: Spine Lumbar JERAMIE : SPINE [id number] 1 / / Dbx 10cc [id number] - [id number] - [id number] Implanted:Qty: 1 on 01/25/2022 by Marshall Dupont MD at OR [facility] Tissue - Human N/A: Spine Lumbar MUSCULOSKELETAL TRANSPLANT FND [id number] 09/09/2023 [id number] / [id number] / LOT NA Lens Intraoc 19.5 - [id number] - [id number] Implanted:Qty: 1 on 07/26/2017 by Orion Hernandez MD at OR [facility] Left: Eye BAUSCH & LOMB 02/10/2022 [id number] / [id number] Lens Intraoc 19.5 - [id number] - [id number] Implanted:Qty: 1 on 08/16/2017 by Orion Hernandez MD at OR [facility] Right: Eye BAUSCH & LOMB 12/10/2021 [id number] / [id number] Cage Inter [id number] 12 Deg - [id number] Implanted:Qty: 1 on 01/25/2022 by Marshall Dupont MD at OR [facility] N/A: Spine Lumbar JERAMIE : SPINE 03/02/2024 58-1028-1 208K / / [id number] Cage Inter [id number] 12 Deg Implanted:Qty: 1 on 01/25/2022 by Marshall Dupont MD at OR [facility] N/A: Spine Lumbar JERAMIE : SPINE 09/21/2024 58-1028-1 210K / / [id number] Cage Inter [id number] 15 Deg Implanted:Qty: 1 on 01/25/2022 by Marshall Dupont MD at OR [facility] N/A: Spine Lumbar JERAMIE : SPINE 03/30/2024 58-1028-1 510K / / [id number] Rene Implanted:Qty: 2 on 01/25/2022 by Marshall Dupont MD at OR [facility] N/A: Spine Lumbar JERAMIE : SPINE [id number] / / documented as of this [...] and were consensually agreed upon. Care Teams Mechanical Product Design Engineer Relationship Specialty Start Date End Date Duglas Philippe III, MD [address] [place] [address] [place] [address] PCP - General 04/04/07 documented as of this encounter
--- OUTSIDE RECORDS SUMMARY | 2024-06-30 12:35 | External Medical Summary | Summary of Care ---
Author Name Unknown Organization [facility] Address [address] [place] [address] Phone [phone] Care Team Providers Care Floor Person Name Role Phone Denae LUNA MD, Duglas Bravo Primary Care Provider [phone] Reason for Referral * Evaluate & Treat - Unlimited Visits (Within 10 days (routine)) - Authorized Specialty Diagnoses / Procedures Referred By Anisha fonseca Referred To Contact Physical Therapy / Physical Medicine And Rehab Diagnoses Chronic bilateral low back pain without sciatica Duglas Philippe III, MD [address] [place] [address] Referral ID Status Reason Start Date Expiration Date Visits Requested Visits Authorized [id number] Authorized Specialty Services Required 02/28/2024 999 999 Question Answer Referral Priority Within 10 days (routine) Where should this appointment be scheduled? [facility] Reason for Visit * Reason Onset Date Comments Physical-Exam Medication Administration 02/28/2024 Flu an d/or Pneumo Inj Encounter Details Date Type Department Care Team (Late st Contact Info) Description 02/28/2024 9:40 AM EDT Office Visit Family Practice [facility] [address] [place] [address] [address] Duglas Philippe III, MD [address] [place] [address] [address] Routine medical exam*; HTN, goal below 140/90; Need for prophylactic vaccination and inoculation against influenza; CHR ISCHEMIC HRT DIS NOS; Dyslipidemia, goal LDL below 70; Chronic bilateral low back pain without sciatica Allergies No known active allergiesdocumented as of this encounter (statuses as of 03/02/2024) Medications Medication Sig Dispensed Refills Start Date End Date Status ASPIRIN 81 MG PO CHEWIndications:Arash nary atherosclerosis of [place] coronary artery,HTN, goal below 140/90,Dyslipidemia, goal LDL [...] 0.4 MG Sublingual Tablet Sublingual (Nitrostat)Indicatio ns:Acute [place], anterior wall (HCC) PLACE 1 TAB UNDER [...] as of this encounter (statuses as of 03/02/2024) Active Problems Problem Noted Date Diagnosed Date S/P lumbar laminectomy 01/25/2022 BPH with obstruction/lower urinary tract symptom s 09/18/2021 Dyslipidemia, goal LDL below 70 09/30/2010 OLD MYOCARDIAL INFARCT 01/02/2009 Overview: Modified by Acute [place] Protocol #5. CHR ISCHEMIC HRT DIS NOS 09/14/2005 ADVANCE DIRECTIVE INFORMATION 03/29/2005 Overview: No, Advance Directive brochure offered , patient declined. HTN, goal below 140/90 12/18/2001 Coronary atherosclerosis of [place] coronary sravanthi ry Alcohol abuse, continuous documented as of this encounter (statuses as of 03/02/2024) Resolved Problems Problem Noted Date Diagnosed Date Resolved Date Prediabetes 07/26/2017 01/21/2022 Overview: Per Prediabetes protocol #1 Palpitations 07/25/2013 09/22/2016 Discomfort in chest 07/25/2013 09/23/19 17 Acute [place], anterior wall 04/04/200712/12 Overview: Modified by Acute [place] Protocol #5. Spasm of muscle 09/22/2016 Overview: back documented as of this encounter (statuses as of 03/02/2024) Immunizations Name Administration Dates Next Due COVID-19 [...] Sign Reading Time Taken Comments Blood Pressure 118/64 02/28/2024 9:53 AM EDT Pulse 59 02/28/2024 9:53 AM EDT Temperature 36.3 C (97.4 F) 02/28/2024 9:53 AM ED T Respiratory Rate - - Oxygen Saturation 98% 02/28/2024 9:53 AM EDT Inhaled Oxygen Concentration - - Weight 100 kg (220 lb 6.4 oz) 02/28/2024 9:53 AM EDT Height 188 cm (6' 2.02") 02/28/2024 9:53 AM EDT Body Mass Index 28.29 02/28/2024 9:53 AM EDT documented in this encounter Functional [...] No 01/25/2022 documented as of this encounter Patient Instructions * Patient Instructions* Myrna Cadet CMA - 02/28/2024 9:54 AM EDT ~~PATIENT INSTRUCTIONS FOR FLU SHOT~~ Possible side effects of influenza vaccine, (flu shot), are usually mild and include: 1. Soreness or redness at injection site 2. Low grade fever 3. Body aches You may use Tylenol/Acetaminophen as needed for these symptoms. LET YOUR DOCTOR KNOW IMMEDIATELY IF YOU HAVE DIFFICULTY BREATHING OR SWALLOWING, EXPERIENCE ITCHINGOF FEET OR HANDS, HAVE SWELLING OF EYES, FACE OR INSIDE OF NOSE. documented in this encounter Progress Notes * Duglas Philippe III, MD - 02/28/2024 10:22 AM EDT Subjective: Lorne Roe is a 73 year old male. Chief Complaint Patient presents with Physical-Exam Medication Administration Flu and/or Pneumo Inj HPI: Physical examination follow-up ischemic heart disease followed by Cardiology hypertension dyslipidemia BPH urinary frequency followed by Urology eyes are checked annually sees dentist every 6 months no hearing concerns no swallowing difficulties no exertional chest pain shortness of breath no c laudication or swelling of his ankles only concern is back pain if he walks maybe he can do close to a mile does recumbent bike and elliptical without significant issues no lumps or swelling in the groin area PMH: Patient Active Problem List Diagnosis HTN, goal below 140/90 ADVANCE DIRECTIVE INFORMATION CHR ISCHEMIC HRT DIS NOS Coronary atherosclerosis of [place] coronary artery Alcohol abuse, continuous OLD MYOCARDIAL INFARCT Dyslipidemia, goal LDL below 70 BPH with obstruction/lower urinary tract symptoms S/P lumbar laminectomy Current Outpatient Medications Medication Sig Dispense Refill ASPIRIN 81 MG PO CHEW take one tablet daily 100 Tab 3 CoQ10 100 MG Oral Capsule Take by mouth 1 Capsule daily . 30 Capsule 5 Sildenafil Citrate 20 MG Oral Tablet (Revatio) 2-5 tabs as needed erectile dysfunction 30 Tablet 2 Nitroglycerin 0.4 MG Sublingual Tablet Sublingual (Nitrostat) PLACE 1 TAB UNDER THE TONGUE NEEDED FOR CHEST PAIN, MAX 3 DOSES 25 Tablet 11 Metoprolol Tartrate 50 MG Oral Tablet (Lopressor) TAKE 1 TABLET BY MOUTH TWICE A DAY 180 Tablet 2 Rosuvastatin Calcium 40 MG Oral Tablet (Crestor) TAKE 1 TABLET BY MOUTH EVERY DAY IN THE MORNING 90Tablet 3 Solifenacin Succinate 10 MG Oral Tablet (VESIcare) TAKE ONE TABLET BY MOUTH IN THE MORNING 30 Tablet 6 Ezetimibe 10 MG Oral Tablet (Zetia) TAKE 1 TABLET BY MOUTH EVERY DAY IN THE MORNING 90 Tablet 0 Chlorthalidone 25 MG Oral Tablet (Hygroton) TAKE 1/2 TABLET BY MOUTH DAILY 45 Tablet 0 Losartan Potassium 100 MG Oral Tablet (Cozaar) TAKE 1 TABLET BY MOUTH EVERY DAY 90 Tablet 0 No current facility-administered medications for this visit. Review of patient's allergies indicates: No Known Allergies Past Medical History: Diagnosis Date Alcohol abuse, continuous BPH (benign prostatic hyperplasia) Coronary atherosclerosis of [place] coronary artery HLD (hyperlipidemia) HTN, goal below 140/90 Lumbar radiculopathy Lumbar stenosis [place] (myocardial infarction) ([facility]) 2005 Past Surgical History: Procedure Laterality Date ALLOGRAFT, MORSELIZED, FOR SPINE SURGERY N/A 01/25/2022 ALLOGRAFT FOR SPINE SURGERY MORSELIZED performed by Marshall Dupont MD at OR [facility] AUTOGRAFT, SPINE SURG, MORSELIZED N/A 01/25/2022 OBTAIN AUTOGRAFT FOR SPINE SURGERY MORSELIZED SEPARATE INCISION performed by Marshall Dupont MD at OR [facility] BONE MARROW ASPIRATION BONE GRAFTING SPINE SURGERY ONLY N/A 01/25/2022 BONE MARROW ASPIRATION FOR SPINE BONE GRAFTING performed by Marshall Dupont MD at OR [facility] COLONOSCOPY 03/2006 repeat 10 years COLONOSCOPY, DIAGNOSTIC (RECTUM) 05/10/2016 cecal polyp/COLONOSCOPY FLEXIBLE PROXIMAL DIAGNOSTIC performed by Mainor Barakat MD at ENDOSCOPY [facility] COLONOSCOPY, DIAGNOSTIC (RECTUM) N/A 08/04/2016 COLONOSCOPY FLEXIBLE PROXIMAL DIAGNOSTIC performed by Umang Mckeon MD at ENDOSCOPY [facility] COLONOSCOPY, DIAGNOSTIC (RECTUM) N/A 04/10/2019 diverticulosis, repeat 3 yrs/COLONOSCOPY FLEXIBLE PROXIMAL DIAGNOSTIC performed by Mainor Barakat MD at ENDOSCOPY [facility] COLONOSCOPY, DIAGNOSTIC (RECTUM) 05/16/2023 diverticulosis/hemorrhoids/biopsies show adenomatous polyps/recall 3 years/COLONOSCOPY FLEXIBLE PROXIMAL DIAGNOSTIC performed by Marcos Davis MD at ENDOSCOPY [facility] INJECT DX/THER SUBSTANCE INTERLAMINAR LUMBAR/SACRAL W IMAGE GUIDE 07/27/2021 INJECTION SPINE LUMBAR OR SACRAL performed by Leoncio Thomas DO at OR [facility] INSERT BIOMECH DEVICE INTERVERTEBRAL DISC SPACE W/ARTHRODESIS N/A 01/25/2022 INSERTION INTERBODY BIOMECHANICAL DEVICE ANTERIOR W/INTERBODY ARTHRODESIS performed by Marshall Dupont MD at OR [facility] PROSTATE, LASER VAPORIZATION N/A 04/22/2021 LASER VAPORIZATION PROSTATE performed by Medhat Encinas MD at OR [facility] REMOVAL OF PROSTATE (TURP) N/A 04/22/2021 TRANSURETHRAL RESECTION PROSTATE ELECTROSURGICAL performed by Medhat Encinas MD at OR [facility] REMOVE CATARACT, INSERT LENS PROSTH Left 07/26/2017 left EXTRACAPSULAR CATARACT REMOVAL WITH INTRAOCULAR LENS performed by Orion Hernandez MD at OR [facility] REMOVE CATARACT, INSERT LENS PROSTH Right 08/16/2017 right EXTRACAPSULAR CATARACT REMOVAL WITH INTRAOCULAR LENS performed by Orion Hernandez MD at OR [facility] REMOVE LUMBAR SPINE LAMINA, 1 SEG N/A 01/25/2022 LAMINECTOMY FACETECTOMY AND FORAMINOTOMY LUMBAR performed by Marshall Dupont MD at OR [facility] REMOVE TONSILS & ADENOIDS, UNDER 12 Tonsillectomy/Adenoids,<12 Y/O SPINAL FUSION, ADD'L INTERSPACE N/A 01/25/2022 SPINAL FUSION POSTERIOR OR POSTERIOR LATERAL, ADD'L INTERSPACE performed by Marshall Dupont MD at OR [facility] SPINAL FUSION, LUMBAR, COMBINED N/A 01/25/2022 ARTHRODESIS SPINE POSTERIOR OR POSTERIOR LATERAL WITH LAMINECTOMY LUMBAR, COMBINED performed by Marshall Dupont MD at OR [facility] SPINE SEG FIX, POST, 3-6 SEG, INSERT N/A 01/25/2022 POSTERIOR SPINE SEGMENTAL INSTRUMENTATION 3 TO 6 PSF performed by Marshall Dupont MD at OR [facility] Objective: The patient is a 73 year old male BP 118/64 | Pulse 59 | Temp 36.3 C (97.4 F) | Ht 1.88 m (6' 2.02") | Wt 100 kg (220 lb 6.4 oz) | SpO2 98% | BMI 28.29 kg/m | BSA 2.29 m General: alert, healthy, and no distress Eye Exam: PERRLA, extraocular movements intact, conjunctiva are pink and non- injected, sclera clear Ears: External ears normal, Canals clear, TM's Normal Oropharynx: no exudate, no erythema, lips, buccal mucosa, and tongue normal, and mucous membranes are moist Neck: supple, no adenopathy, no bruits, thyroid normal size, non-tender, without nodularity Heart: regular rate & rhythm, no murmur, and no gallops Lungs: lungs clear to auscultation Pulses: carotid=2/4 w/o bruits Abdomen: abdomen soft, non-tender, normal bowel sounds, and no masses or organomegaly Extremities: no edema, no clubbing, no cyanosis Neuro Exam: alert & oriented x 3 with fluent speech, reflexes normal and symmetric Exam (Male): no abnormalities of scrotal contents, no hernia detected ASSESSMENT: (Z00.00) Routine medical exam (primary encounter diagnosis) (I10) HTN, goal below 140/90 (Z23) Need for prophylactic vaccination and inoculation against influenza (I25.9) CHR ISCHEMIC HRT DIS NOS (E78.5) Dyslipidemia, goal LDL below 70 (M54.50, G89.29) Chronic bilateral low back pain without sciatica PLAN: Sun protection discussed flu vaccine given COVID RSV Shingrix discussed as well would get these at the pharmacy continue present meds call if problems Total time 32 minutes Follow up in 1 year(s). Duglas Philippe III, MD * Myrna Cadet CMA - 02/28/2024 9:54 AM EDT PRE - ADMINISTRATION DOCUMENTATION Are you experiencing any cold symptoms or fever? No Have you had Guillain-Lawrence Syndrome (an illness that causes paralysis) within the last 6 weeks? No Have you had the flu shot in the past? YES Have you ever had a reaction to the flu shot? No Myrna Cadet CMA, 02/28/2024 9:54 AM Immunization Administration Documentation Time Out Procedure Performed: Yes Patient Identified (Ask Name/Date of ): Yes Does the patient have a fever greater than 101 degrees today? No Patient allergic to latex? No VFC Stock: No Immunization(s) verified: Yes, Immunization Name: Flu, VIS Sheet(s) given: Yes Verified Side and Site: Yes Verified Shot(s) with Parent(s)/Patient: Yes documented in this encounter Nursing Notes * Myrna Cadet CMA - 02/28/2024 9:55 AM EDT Lorne Roe presents for annual physical exam. Medications & HM reviewed. He would like to discuss starting physical therapy. documented in this encounter Plan of Treatment Upcoming Encounters Date Type Department Care Team (Late st Contact Info) Description 08/01/2024 11:15 AM EST Office Visit Urology, [facility] [address] [address] Medhat Encinas MD [address] [place] [address] 09/07/2024 1:30 PM EDT Office Visit Cardiology, [facility] [address] [address] Guerrero Del Rio DO [address] [place] [place] [address] 02/28/2025 9:20 AM EDT Office Visit Family Practice [address] [place] [address] Duglas Philippe III, MD [address] [facility] [place] [address] Scheduled Orders Name Type Priority Associated Diagnoses Orde r Schedule ALBUMIN / CREATININE RATIO, URINE Lab Routine HTN, goal below 140/90 Expected: 02/28/2024, Expires: 02/27/2025 Scheduled Procedures Name Priority Associated Diagnoses Date/Ti me COLONOSCOPY FLEXIBLE PROXIMA L DIAGNOSTIC Recall History of colonic polyps Scheduled Referrals Name Type Priority Associated Diagnoses Orde r Schedule PHYSICAL THERAPY REFERRAL OP Referral Within 10 days (routine) Chronic bilateral low back pain without sciatica Ordered: 02/28/2024 Health Maintenance Due Date Last Done Comments [...] this encounter Medical Devices Implanted Type Area Mimeographer Device Identifier Shelf Expiration Date Model / Serial / Lot 5.6cc, (Pk Of 4) 1in X 2in Mediuminfuse Bone Graft Kit Implanted:Qty: 1 on 01/25/2022 by Marshall Dupont MD at OR [facility] Bone N/A: Spine Lumbar Medtronic Sofamor Danek [id number] 02/10/2022 [id number] / [id number] / [id number] 25mm X 100mm X 4mm, 10cc Vitoss Bioactive Foam Strip, Synthetic Bone Graft Substitute, Ambient Implanted:Qty: 1 on 01/25/2022 by Marshall Dupont MD at OR [facility] Graft N/A: Spine Lumbar JERAMIE [id number] 03/10/202421014111-4394 / [id number] / [id number] Vitoss Bimodal Foam Pack Implanted:Qty: 1 on 01/25/2022 by Marshall Dupont MD at OR [facility] Graft N/A: Spine Lumbar JERAMIE [id number] 07/10/202321015103-4735 / [id number] / [id number] 25mm X 100mm X 4mm, 10cc Vitoss Bioactive Foam Strip, Synthetic Bone Graft Substitute, Ambient Implanted:Qty: 1 on 01/25/2022 by Marshall Dupont MD at OR [facility] Graft N/A: Spine Lumbar JERAMIE [id number] 03/10/2024 [id number] / [id number] / [id number] Screw [place] Poly 06.5x50 Mm - [id number] Implanted:Qty: 8 on 01/25/2022 by Marshall Dupont MD at OR [facility] Screw N/A: Spine Lumbar [employer] [id number] 0 / / Set Screw Poly Atr [place] - [id number] Implanted:Qty: 8 on 01/25/2022 by Marshall Dupont MD at OR [facility] Screw N/A: Spine Lumbar JERAMIE : SPINE [id number] 1 / / Dbx 10cc 090505 - [id number] - [id number] Implanted:Qty: 1 on 01/25/2022 by Marshall Dupont MD at OR [facility] Tissue - Human N/A: Spine Lumbar MUSCULOSKELETAL TRANSPLANT FND [id number] 09/09/2023 [id number] / [id number] / LOT NA Lens Intraoc 19.5 - [id number] - [id number] Implanted:Qty: 1 on 07/26/2017 by Orion Hernandez MD at OR [facility] Left: Eye BAUSCH & LOMB 02/10/2022 [id number] / [id number] Lens Intraoc 19.5 - [id number] - [id number] Implanted:Qty: 1 on 08/16/2017 by Orion Hernandez MD at OR [facility] Right: Eye BAUSCH & LOMB 12/10/2021 [id number] / [id number] Cage Inter [id number] 12 Deg - [id number] Implanted:Qty: 1 on 01/25/2022 by Marshall Dupont MD at OR [facility] N/A: Spine Lumbar JERAMIE : SPINE 03/02/2024 58-1028-1 208K / / [id number] Cage Inter [id number] 12 Deg Implanted:Qty: 1 on 01/25/2022 by Marshall Dupont MD at OR [facility] N/A: Spine Lumbar JERAMIE : SPINE 09/21/2024 58-1028-1 210K / / [id number] Cage Inter [id number] 15 Deg Implanted:Qty: 1 on 01/25/2022 by Marshall Dupont MD at OR [facility] N/A: Spine Lumbar JERAMIE : SPINE 03/30/2024 58-1028-1 510K / / [id number] Rene Implanted:Qty: 2 on 01/25/2022 by Marshall Dupont MD at OR [facility] N/A: Spine Lumbar JERAMIE : SPINE [id number] 0 / / documented as of this encounter Visit Diagnoses Diagnosis Routine medical exam- Primary Routine general medical examination at a health care facility HTN, goal below 140/90 Unspecified essential hypertension Need for prophylactic vaccination and inoculation against influenza CHR ISCHEMIC HRT DIS NOS Chronic ischemic heart disease, unspecified Dyslipidemia, goal LDL below 70 Other and unspecified hyperlipidemia Chronic bilateral low back pain without sciatica documented in this encounter Advance Directives * [...] and were consensually agreed upon. Care Teams Floor Person Relationship Specialty Start Date End Date Duglas Philippe III, MD [address] [facility] [place] [address] PCP - General 04/04/07 documented as of this encounter
--- OUTSIDE RECORDS SUMMARY | 2024-06-30 12:35 | External Medical Summary | Summary of Care ---
Author Name Unknown Organization [facility] Address [address] [address] Phone [phone] Care Team Providers Care Rn Intensive Care Unit Name Role Phone Denae LUNA MD, Duglas Bravo Primary Care Provider [phone] Reason for Visit * Reason Onset Date Comments Referral 02/28/2024 Encounter Details Date Type Department Care Team (Late st Contact Info) Description 02/28[facility] [address] [facility] [place] [address] Duglas Philippe III, MD [address] [facility] [place] [address] Referral Allergies No known active allergiesdocumented as of this encounter (statuses as of 02/28/2024) Medications Medication Sig Dispensed Refills Start Date End Date Status ASPIRIN 81 MG PO CHEWIndications:Coron anushka atherosclerosis of elim ir[place] coronary artery,HTN, goal below 140/90,Dyslipidemia, goal LDL [...] 0.4 MG Sublingual Tablet Sublingual (Nitrostat)Indication s:Acute [place], anterior wall (HCC) PLACE 1 TAB UNDER [...] MYOCARDIAL INFARCT 01/02/2009 Overview: Modified by Acute [place] Protocol #5. CHR ISCHEMIC HRT DIS NOS 09/14/2005 ADVANCE DIRECTIVE INFORMATION 03/29/2005 Overview: No, Advance Directive brochure offered , patient declined. HTN, goal below 140/90 12/18/2001 Coronary atherosclerosis of elim ira coronary sravanthi ry Alcohol abuse, continuous documented as of this encounter (statuses as of 02/28/2024) Resolved Problems Problem Noted Date Diagnosed Date Resolved Date Prediabetes 07/26/2017 01/21/2022 Overview: Per Prediabetes protocol #1 Palpitations 07/25/2013 09/22/2016 Discomfort in chest 07/25/2013 09/23/19 17 Acute [place], anterior wall 04/04/200712/12 Overview: Modified by [facility] Protocol #5. Spasm of muscle 09/22/2016 Overview: [...] encounter Miscellaneous Notes * Telephone Encounter - Rena Sanchez OSA - 02/28/2024 10:50 AM EDT Patients PT referral was faxed to Corrina Canales on 02/28/24 with success at 10:27 am. documented in this encounter Plan of Treatment Upcoming Encounters Date Type Department Care Team (Late st Contact Info) Description 09/07/2024 1:30 PM EDT Office Visit Cardiology, [facility] [address] [place] [address] Guerrero Del Rio DO [address] [place] [address] 02/28/2025 9:20 AM EDT Office Visit Family Practice [facility] [address] [facility] [place] [address] Duglas Philippe III, MD [address] [facility] [place] [address] Scheduled Procedures Name Priority Associated Diagnoses Date/Ti me COLONOSCOPY FLEXIBLE PROXIMA L DIAGNOSTIC Recall History of colonic polyps Health Maintenance Due Date Last Done Comments Albumin/Creatinine Ratio 1967 Cologuard 1994 Fecal Occult Blood Test 1994 Sigmoidoscopy 1994 Zoster Vaccines (2 of 3) 06/10/2015 04/15/2015 Adult Wellness Visit 01/05/2022 01/05/2021 Depression Screening 01/11/2024 01/10/2023 COVID-19 Vaccine (3 - season) 2024 08/30/2020, 08/09/2020 GFR 02/26/2025 [...] this encounter Medical Devices Implanted Type Area Brewery Technician Device Identifier Shelf Expiration Date Model / Serial / Lot 5.6cc, (Pk Of 4) 1in X 2in Mediuminfuse Bone Graft Kit Implanted:Qty: 1 on 01/25/2022 by Marshall Dupont MD at OR [facility] Bone N/A: Spine Lumbar Medtronic Sofamor Danek [id number] 02/10/2022 [id number] / [id number] / [id number] S 25mm X 100mm X 4mm, 10cc Vitoss Bioactive Foam Strip, Synthetic Bone Graft Substitute, Ambient Implanted:Qty: 1 on 01/25/2022 by Marshall Dupont MD at OR [facility] Graft N/A: Spine Lumbar JERAMIE [id number] 03/10/202421015296-3721 / [id number] / [id number] Vitoss Bimodal Foam Pack Implanted:Qty: 1 on 01/25/2022 by Marshall Dupont MD at OR [facility] Graft N/A: Spine Lumbar JERAMIE [id number] 07/10/2023 [id number] / [id number] / [id number] 25mm X 100mm X 4mm, 10cc Vitoss Bioactive Foam Strip, Synthetic Bone Graft Substitute, Ambient Implanted:Qty: 1 on 01/25/2022 by Marshall Dupont MD at OR [facility] Graft N/A: Spine Lumbar JERAMIE [id number] 03/10/202421014534-2933 / [id number] / [id number] Screw [place] Poly 06.5x50 Mm - [id number] Implanted:Qty: 8 on 01/25/2022 by Marshall Dupont MD at OR [facility] Screw N/A: Spine Lumbar K2M INC [id number] 0 / / Set Screw Poly Atr [place] - [id number] Implanted:Qty: 8 on 01/25/2022 by Marshall Dupont MD at OR [facility] Screw N/A: Spine Lumbar JERAMIE : SPINE 1359-2767 1 / / Dbx 10cc 060243 - [id number] - [id number] Implanted:Qty: 1 on 01/25/2022 by Marshall Dupont MD at OR [facility] Tissue - Human N/A: Spine Lumbar MUSCULOSKELETAL TRANSPLANT FND [id number] 09/09/2023 [id number] / [id number] / LOT NA Lens Intraoc 19.5 - [id number] - [id number] Implanted:Qty: 1 on 07/26/2017 by Orion Hernandez MD at OR [facility] Left: Eye BAUSCH & LOMB 02/10/2022 [id number] / [id number] Lens Intraoc 19.5 - [id number] - [id number] Implanted:Qty: 1 on 08/16/2017 by Orion Hernandez MD at OR [facility] Right: Eye BAUSCH & LOMB 12/10/2021 [id number] / [id number] Cage Inter [id number] 12 Deg - [id number] Implanted:Qty: 1 on 01/25/2022 by Marshall Dupont MD at OR [facility] N/A: Spine Lumbar JERAMIE : SPINE 03/02/2024 58-1028-1 208K / / [id number] Cage Inter [id number] 12 Deg Implanted:Qty: 1 on 01/25/2022 by Marshall Dupont MD at OR [facility] N/A: Spine Lumbar JERAMIE : SPINE 09/21/2024 58-1028-1 210K / / [id number] Cage Inter [id number] 15 Deg Implanted:Qty: 1 on 01/25/2022 by Marshall Dupont MD at OR [facility] N/A: Spine Lumbar JERAMIE : SPINE 03/30/2024 58-1028-1 510K / / [id number] Rene Implanted:Qty: 2 on 01/25/2022 by Marshall Dupont MD at OR [facility] N/A: Spine Lumbar JERAMIE : SPINE [id number] 0 / / documented as of this [...] and were consensually agreed upon. Care Teams Rn Intensive Care Unit Relationship Specialty Start Date End Date Denae LUNA, Duglas Bravo MD [address] [facility] [place] [address] PCP - General 04/04/07 documented as of this encounter
--- OUTSIDE RECORDS SUMMARY | 2024-06-30 12:35 | External Medical Summary | Summary of Care ---
Author Name Unknown Organization [facility] [address] [facility] [address] Phone [phone] Care Team Providers Care Ballistics Tester Name Role Phone Denae LUNA MD, Duglas Bravo Primary Care Provider [phone] Reason for Visit * Reason Comments Follow Up Encounter Details Date Type Department Care Team (Latest Contact Info) Description 02/27/2024 1:30 PM EDT Office Visit Cardiology, [facility] [address] [place] [address] Guerrero Del Rio, [address] [place] [address] Atherosclerosis of miami coronary artery of [place] heart without angina pectoris*; Dyslipidemia, goal LDL below 70; HTN, goal below 140/90; RBBB (right bundle branch block); LAFB (left anterior fascicular block); Frequent PVCs Allergies No known active allergiesdocumented as of this encounter (statuses as of 02/27/2024) Medications Medication Sig Dispensed Refills Start Date End Date Status ASPIRIN 81 MG PO CHEWIndications:Coron anushka atherosclerosis of [place] coronary artery,HTN, goal below 140/90,Dyslipidemia, goal LDL below 70 take one tablet daily 100 Tab 3 04/05/2011 Active Apple Cider Vinegar 300 MG TABSIndications:takes 2 tablespoons daily Take 1 Tab by mouth daily. Indications: takes 2 tablespoons daily Active CoQ10 100 MG Oral Capsule Take by mouth 1 Capsule daily . 30 Capsule 5 09/11/2021 Active Diclofenac Sodium 1 % External Gel (Voltaren) Apply topically to affected area 2 times a day as needed for Pain, Moderate. Apply to to the affected areas 150 g 1 05/18/2022 Active Additional Information Patient not taking.Reported on 08/02/2023 Sildenafil Citrate 20 MG Oral Tablet (Revatio)Indications: Erectile dysfunction, unspecified erectile dysfunction type 2-5 tabs as needed erectile dysfunction 30 Tablet 2 01/10/2023 Active Nitroglycerin 0.4 MG Sublingual Tablet Sublingual (Nitrostat)Indication s:Acute IA, anterior wall (HCC) PLACE 1 TAB UNDER [...] THE MORNING 90 Tablet 3 07/25/2023 Active Mirabegron ER 25 MG Oral Tablet Extended Release 24 Hour (Myrbetriq) Take 1 Tablet by mouth in the morning. 30 Tablet 6 08/02/2023 Active Additional Information Patient not taking.Reported on 09/13/2023 Solifenacin Succinate 10 MG Oral Tablet (VESIcare) [...] as of this encounter (statuses as of 02/27/2024) Active Problems Problem Noted Date Diagnosed Date S/P lumbar laminectomy 01/25/2022 BPH with obstruction/lower urinary tract symptom s 09/18/2021 Dyslipidemia, goal LDL below 70 09/30/2010 OLD MYOCARDIAL INFARCT 01/02/2009 Overview: Modified by Acute IA Protocol #5. CHR ISCHEMIC HRT DIS NOS 09/14/2005 ADVANCE DIRECTIVE INFORMATION 03/29/2005 Overview: No, Advance Directive brochure offered , patient declined. HTN, goal below 140/90 12/18/2001 Coronary atherosclerosis of [place] coronary sravanthi ry Alcohol abuse, continuous documented as of this encounter (statuses as of 02/27/2024) Resolved Problems Problem Noted Date Diagnosed Date Resolved Date Prediabetes 07/26/2017 01/21/2022 Overview: Per Prediabetes protocol #1 Palpitations 07/25/2013 09/22/2016 Discomfort in chest 07/25/2013 09/23/19 17 Acute IA, anterior wall 04/04/200712/12 Overview: Modified by Acute IA Protocol #5. Spasm of muscle 09/22/2016 Overview: back documented as of this encounter (statuses as of 02/27/2024) Immunizations Name Administration Dates Next Due COVID-19 mRNA, LNP-s, No Pre serve, 2-Dose Series (Expect Labs) 08/30/2020,08/09/2020 Pneumococcal Conjugate Vacc, 13 Valent (Prevnar) [...] 0 06/13/1999 - 06/13/2001 Smokeless Tobacco: Never Tobacco Cessation:Counseling Given: Not Answered Alcohol Use Standard Drinks/Week Comments Yes 25 [...] Sign Reading Time Taken Comments Blood Pressure 122/56 02/27/2024 1:32 PM EDT Pulse 68 02/27/2024 1:32 PM EDT Temperature - - Respiratory Rate 14 02/27/2024 1:32 PM EDT Oxygen Saturation - - Inhaled Oxygen Concentration - - Weight 99.6 kg (219 lb 8 oz) 02/27/2024 1:32 PM EDT Height - - Body Mass Index 28.17 05/16/2023 9:48 AM EST documented in this encounter Functional Status Functional [...] as of this encounter Progress Notes * Guerrero Del Rio DO - 02/27/2024 2:01 PM EDT SUBJECTIVE: Patient returns today for follow up of chronic coronary artery disease, dyslipidemia, and hypertension. Feeling well from a cardiovascular perspective. Denies chest pain or unusual shortness of breath. Exercising regularly using treadmill, elliptical fitness trainer, and recumbent bicycle in his home. Continues to note low back pain and balance issues since spinal surgery in December of 2021. No falls or injuries. Unable to walk long distances. Denies palpitations, lightheadedness, dizziness, syncope, or near syncope. ECG: Sinus rhythm with frequent PVCs, right bundle branch block, left anterior fascicular block. Nochange compared to prior ECG. Exercise stress echo report December 31, 2021: The stress echo is negative for inducible ischemia. Frequent PVCs were noted with stress. Moderate aortic valve sclerosis is present. Aortic stenosis is absent. The proximal ascending thoracic aorta is mildly enlarged , 4 cm. Compared to the report of the prior study dated 12/19/2018, the diameter of the proximal ascending aorta is stable without significant interval change. The patient exercised for 8 minutes on a standard Alex protocol in 2019 as compared to 5 minutes on the present study. Exercise stress echo report 12/2018: The stress echo is negative for inducible ischemia. Exercise capacity is average . Heart rate response to stress was normal. Blood pressure response to exercise was normal. Stress EKG was nondiagnostic secondary to baseline conduction abnormalities. There are atrial and ventricular ectopy throughout the study The left ventricular wall motion is normal. There are no wall motion abnormalities induced with stress with imaging at peak of fair technical quality with limitations secondary to ectopy. The left ventricular ejection fraction increases normally with stress. The left ventricular cavity size is normal. The LV wall thickness is moderately increased (concentric). The left ventricular systolic function is normal. The qualitative LV ejection fraction is 55-59% (normal). The left ventricular diastolic function is mildly abnormal (grade I). Abdominal aortic duplex 08/2014: There is no evidence of an abdominal aortic aneurysm. Exercise stress ECHO 08/2013 per my report: The stress echo is negative for inducible ischemia. The qualitative LV ejection fraction is 55-59% (normal). Mild aortic valve sclerosis is present. Trace aortic insufficiency. Mild functional mitral regurgitation is present. Mild tricuspid regurgitation is present. There is no evidence of pulmonary hypertension ROS: All others negative other than those noted in the HPI. Patient Active Problem List Diagnosis HTN, goal below 140/90 ADVANCE DIRECTIVE INFORMATION CHR ISCHEMIC HRT DIS NOS Coronary atherosclerosis of [place] coronary artery Alcohol abuse, continuous OLD MYOCARDIAL INFARCT Dyslipidemia, goal LDL below 70 BPH with obstruction/lower urinary tract symptoms S/P lumbar laminectomy Social History Tobacco Use Smoking status: Former Smoker Packs/day: 1.00 Years: 2.00 Pack years: 2.00 Last attempt to quit: 06/13/2001 Years since quittin.4 Smokeless tobacco: Never Used Substance Use Topics Alcohol use: Yes Alcohol/week: 15.0 oz Types: 30 12 oz of beer per week Comment: 4 beers qd 5x week Drug use: No Review of patient's allergies indicates: No Known Allergies Current Outpatient Medications Medication Sig Dispense Refill ASPIRIN 81 MG PO CHEW take one tablet daily 100 Tab 3 Apple Cider Vinegar 300 MG TABS Take 1 Tab by mouth daily. Indications: takes 2 tablespoons daily CoQ10 100 MG Oral Capsule Take by [...] BY MOUTH EVERY DAY 90 Tablet 0 Diclofenac Sodium 1 % External Gel (Voltaren) Apply topically to affected area 2 times a day as needed for Pain, Moderate. Apply to to the affected areas (Patient not taking: Reported on 08/02/2023) 150 g 1 Mirabegron ER 25 MG Oral Tablet Extended Release 24 Hour (Myrbetriq) Take 1 Tablet by mouth in the morning. (Patient not taking: Reported on 09/13/2023) 30 Tablet 6 No current facility-administered medications for this visit. OBJECTIVE/PHYSICAL EXAMINATION: BP 122/56 (BP Site: Left Arm, BP Position: Sitting, BP Cuff Size: Large) | Pulse 68 | Resp 14 | Wt 99.6 kg (219 lb 8 oz) | BMI 28.17 kg/m | BSA 2.28 m General: NAD, AAO x3, well nourished. HEENT: Normocephalic. Atraumatic. Conjunctiva pink, no scleral icterus. No carotid bruits, the carotid upstrokes are brisk. No JVD. No HJR Heart: Regular normal S-1 and S-2 no S-3 or S-4 gallop. No murmurs or rubs appreciated. PMI is not displaced. No RV heave.Lungs: Clear bilateral without rales , rhonchi, or wheeze. Abdomen: Normal bowel sounds. Soft. Nontender. No masses or organomegaly. No abdominal bruits. Extremities: No clubbing, cyanosis, or edema.Pulses: radial=2/4, Dorsalis pedis =2/4, posterior tibial=2/4. Neuro: No focal deficits. ASSESSMENT: 1. Chronic coronary artery disease with history myocardial infarction secondary to diagonal occlusion. -exercise stress echo negative for inducible ischemia 12/2021 -activity/exercise limited by chronic low back pain -stable without anginal symptoms 2. Hypertension - controlled 3. Dyslipidemia, goal LDL less than 70mg/dL - controlled; tolerating rosuvastatin plus Zetia 4. Asymptomatic PVCs 5. RBBB / LAFB 6. Norman inhibitor induced cough. PLAN: Continue current cardiovascular medications including Zetia, rosuvastatin, metoprolol, losartan, chlorthalidone, and low-dose aspirin. Encouraged to continue his regular aerobic exercise program as tolerated. Appropriate use of sublingual nitroglycerin reviewed. Follow Up: Return in about 6 months (around 08/26/2024). I spent a total of 30-39 minutes (exact time 30 mins) on the date of service in preparation, delivery, and documentation of the care provided to Lorne Roe excluding any time spent in the performance of separately billed services. Guerrero Del Rio DO, [facility] Associate Cardiology - [facility] documented in this encounter Procedure Notes * Karri Espinosa MD - 02/27/2024 1:42 PM EDTAssociated Order(s): EKG REASON FOR STUDY: routine;routine CONCLUSIONS: Sinus rhythm with frequent Premature ventricular complexes Right bundle branch block Left anterior fascicular block Bifascicular block Abnormal ECG When compared with ECG of 30-Dec-2022 09:47, Premature ventricular complexes are now Present Criteria for Septal infarct are no longer Present T wave inversion no longer evident in Anterior leads Ventricular Rate: 71 Atrial Rate: 71 MI Interval: 164 QRS Duration: 162 QT/QTc: 436/473 ms P-R-T Moody: 71 : -77 : 52 degrees documented in this encounter Nursing Notes * Florinda Farfan CMA - 02/27/2024 1:31 PM EDT Examination Room: 13 Name: Lorne Roe Date of : (1950). Reason for Visit: 4M f/u Interim Hospitalization(s): none Problems/Concerns: denies Chest Pain/SOB: denies [facility] Discussed: Not applicable [facility] is a way you can talk to your provider online through e-mail. Would you like to sign up? I can activate it for you? ALREADY ACTIVE Patient was instructed to not get up on the exam table until directed and assisted by their provider; patient is to remain seated in the chair/ wheelchair/ exam table for fall prevention and safety reasons. Patient is aware to have assistance to step down off exam table with personnel. Patient voiced full comprehension of instructions. documented in this encounter Plan of Treatment Upcoming Encounters Date Type Department Care Team (Late st Contact Info) Description 02/28/2024 9:40 AM EDT Office Visit [facility] [address] [facility] [place] [address] Duglas Philippe III, MD [address] [facility] [place] [address] 09/07/2024 1:30 PM EDT Office Visit Cardiology, [facility] [address] [place] [address] Guerrero Del [place], [address] [place] [address] Scheduled Procedures Name Priority Associated Diagnoses Date/Ti me COLONOSCOPY FLEXIBLE PROXIMA L DIAGNOSTIC Recall History of colonic polyps Health Maintenance Due Date Last Done Comments Albumin/Creatinine Ratio 1967 Cologuard 1994 Fecal Occult Blood Test 1994 Sigmoidoscopy 1994 Zoster Vaccines (2 of 3) 06/10/2015 04/15/2015 Adult Wellness Visit 01/05/2022 01/05/2021 Depression Screening 01/11/2024 01/10/2023 COVID-19 Vaccine (3 - season) 2024 08/30/2020, 08/09/2020 Influenza Vaccine (FLU [...] this encounter Medical Devices Implanted Type Area Biofuels Technology Development Manager Device Identifier Shelf Expiration Date Model / Serial / Lot 5.6cc, (Pk Of 4) 1in X 2in Mediuminfuse Bone Graft Kit Implanted:Qty: 1 on 01/25/2022 by Marshall Dupont MD at OR [facility] Bone N/A: Spine Lumbar Medtronic Sofamor Danek [id number] 02/10/2022 [id number] / [id number] / [id number] 25mm X 100mm X 4mm, 10cc Vitoss Bioactive Foam Strip, Synthetic Bone Graft Substitute, Ambient Implanted:Qty: 1 on 01/25/2022 by Marshall Dupont MD at OR [facility] Graft N/A: Spine Lumbar JERAMIE [id number] 03/10/[id number] / [id number] / [id number] Vitoss Bimodal Foam Pack Implanted:Qty: 1 on 01/25/2022 by Marshall Dupont MD at OR [facility] Graft N/A: Spine Lumbar JERAMIE [id number] 07/10/2023 [id number] / [id number] / [id number] 25mm X 100mm X 4mm, 10cc Vitoss Bioactive Foam Strip, Synthetic Bone Graft Substitute, Ambient Implanted:Qty: 1 on 01/25/2022 by Marshall Dupont MD at OR [facility] Graft N/A: Spine Lumbar JERAMIE [id number] 03/10/2024 / [id number] / [id number] Screw [place] Poly 06.5x50 Mm - [id number] Implanted:Qty: 8 on 01/25/2022 by Marshall Dupont MD at OR [facility] Screw N/A: Spine Lumbar [id number] / / Set Screw Poly Atr [place] - [id number] Implanted:Qty: 8 on 01/25/2022 by Marshall Dupont MD at OR [facility] Screw N/A: Spine Lumbar JERAMIE : SPINE [id number] / / Dbx 10cc [id number] - [id number] - [id number] Implanted:Qty: 1 on 01/25/2022 by Marshall Dupont MD at OR [facility] Tissue - Human N/A: Spine Lumbar MUSCULOSKELETAL TRANSPLANT FND [id number] 09/09/2023 [id number] / [id number] / LOT NA Lens Intraoc 19.5 - [id number] - [id number] Implanted:Qty: 1 on 07/26/2017 by Orion Hernandez MD at OR [facility] Left: Eye BAUSCH & LOMB 02/10/2022 [id number] / [id number] / [id number] Lens Intraoc 19.5 - [id number] - [id number] Implanted:Qty: 1 on 08/16/2017 by Orion Hernandez MD at OR [facility] Right: Eye BAUSCH & LOMB 12/10/2021 [id number] / [id number] Cage Inter [id number] 12 Deg - [id number] Implanted:Qty: 1 on 01/25/2022 by Marshall Dupont MD at OR [facility] N/A: Spine Lumbar JERAMIE : SPINE 03/02/2024 58-1028-1 [id number] / / [id number] Cage Inter [id number] 12 Deg Implanted:Qty: 1 on 01/25/2022 by Marshall Dupont MD at OR [facility] N/A: Spine Lumbar JERAMIE : SPINE 09/21/2024 58-1028-1 210K / / [id number] Cage Inter [id number] 15 Deg Implanted:Qty: 1 on 01/25/2022 by Marshall Dupont MD at OR [facility] N/A: Spine Lumbar JERAMIE : SPINE 03/30/2024 58-1028-1 510K / / [id number] Rene Implanted:Qty: 2 on 01/25/2022 by Marshall Dupont MD at OR [facility] N/A: Spine Lumbar JERAMIE : SPINE [id number] / / documented as of this encounter Procedures Procedure Name Priority Date/Time Associated Diagnosis Comments MI ECG ROUTINE ECG W/LEAST 12 LDS I&R ONLY Routine 02/27/2024 1:42 PM EDT Atherosclerosis of miami coronary artery of [place] heart without angina pectoris Dyslipidemia, goal LDL below 70 HTN, goal below 140/90 RBBB (right bundle branch block) LAFB (left anterior fascicular block) documented in this encounter Results * EKG (02/27/2024 1:42 PM EDT) 02/27/2024 1:42 PM EDT Narrative Procedure Note Karri Espinosa MD - 02/27/2024 1:42 PM EDT REASON FOR STUDY: routine;routine CONCLUSIONS: Sinus rhythm with frequent Premature ventricular complexes Right bundle branch block Left anterior fascicular block Bifascicular block Abnormal ECG When compared with ECG of 30-Dec-2022 09:47, Premature ventricular complexes are now Present Criteria for Septal infarct are no longer Present T wave inversion no longer evident in Anterior leads Ventricular Rate: 71 Atrial Rate: 71 MI Interval: 164 QRS Duration: 162 QT/QTc: 436/473 ms P-R-T Moody: 71 : -77 : 52 degrees Guerrero Del [place] DO EKG [facility] documented in this encounter Visit Diagnoses Diagnosis Atherosclerosis of [place]ami coronary artery of [place] heart without angina pectoris- Primary Dyslipidemia, goal LDL below 70 Other and unspecified hyperlipidemia HTN, goal below 140/90 Unspecified essential hypertension RBBB (right bundle branch block) Right bundle branch block LAFB (left anterior fascicular block) Left bundle branch hemiblock Frequent PVCs Other premature beats documented in this encounter Advance Directives * [...] and were consensually agreed upon. Care Teams Ballistics Tester Relationship Specialty Start Date End Date Duglas Philippe III, MD [address] [facility] [place] [address] PCP - General 04/04/07 documented as of this encounter"
--- OUTSIDE RECORDS SUMMARY | 2024-06-30 12:35 | External Medical Summary | Summary of Care ---
Author Name Unknown Organization [facility] Address [address] [address] Phone [phone] Care Team Providers Care Agronomy Research Manager Name Role Phone Denae LUNA MD, Duglas Bravo Primary Care Provider [phone] Reason for Visit * Reason Comments Outpatient Testing Encounter Details Date Type Department Care Team (Late st Contact Info) Description 02/27/2024 9:10 AM EDT Laboratory Laboratory [facility] [address] [place] [id number] [place], [facility] [address] [place] [address] BPH with obstruction/lower urinary tract symptoms; Nocturia; Atherosclerosis of [place] coronary artery of [place] heart without angina pectoris; Dyslipidemia, goal LDL below 70 Allergies No known active allergiesdocumented as of this encounter (statuses as of 02/27/2024) Medications Medication Sig Dispensed Refills Start Date End Date Status ASPIRIN 81 MG PO CHEWIndications:Coron anushka atherosclerosis of [place] coronary artery,HTN, goal below 140/90,Dyslipidemia, goal LDL [...] 0.4 MG Sublingual Tablet Sublingual (Nitrostat)Indication s:Acute [place], anterior wall (HCC) PLACE 1 TAB UNDER [...] MYOCARDIAL INFARCT 01/02/2009 Overview: Modified by Acute [place] Protocol #5. CHR ISCHEMIC HRT DIS NOS 09/14/2005 ADVANCE DIRECTIVE INFORMATION 03/29/2005 Overview: No, Advance Directive brochure offered , patient declined. HTN, goal below 140/90 12/18/2001 Coronary atherosclerosis of [place] coronary sravanthi ry Alcohol abuse, continuous documented as of this encounter (statuses as of 02/27/2024) Resolved Problems Problem Noted Date Diagnosed Date Resolved Date Prediabetes 07/26/2017 01/21/2022 Overview: Per Prediabetes protocol #1 Palpitations 07/25/2013 09/22/2016 Discomfort in chest 07/25/2013 09/23/19 Acute [place], anterior wall 04/04/200712/12 Overview: Modified by Acute [place] Protocol #5. Spasm of muscle 09/22/2016 Overview: [...] Care Team (Late st Contact Info) Description 02/27/2024 1:30 PM EDT Office Visit Cardiology, [facility] [address] [place] [address] [place], [address] [place] [address] 02/28/2024 9:40 AM EDT Office Visit Family Practice [facility] [address] [facility] [place] [address] Duglas Philippe III, MD [address] [facility] [place] [address] Pending Results Name Type Priority Associated Diagnoses Date /Time PSA Lab Routine BPH with obstruction/lower urinary tract symptoms Nocturia 02/27/2024 8:59 AM EDT LIPID PANEL WITH DIRECT LDL IF TG IS HIGH Lab Routine Atherosclerosis of [place] coronary artery of [place] heart without angina pectoris Dyslipidemia, goal LDL below 70 02/27/2024 8:59 AM EDT COMPREHENSIVE METABOLIC PANEL Lab Routine Atherosclerosis of [place] coronary artery of [place] heart without angina pectoris Dyslipidemia, goal LDL below 70 02/27/2024 8:59 AM EDT Scheduled Procedures Name Priority Associated Diagnoses Date/Ti me COLONOSCOPY FLEXIBLE PROXIMA L DIAGNOSTIC Recall History of colonic polyps Health Maintenance Due Date Last Done Comments Albumin/Creatinine Ratio 1967 Cologuard 1994 Fecal Occult Blood Test 1994 Sigmoidoscopy 1994 Zoster Vaccines (2 of 3) 06/10/2015 04/15/2015 Adult Wellness Visit 01/05/2022 01/05/2021 GFR 12/30/2023 12/29/2022, 01/11, 01/27/2022, Additional history exists Depression Screening 01/11/2024 01/10/2023 COVID-19 Vaccine (3 - season) 2024 08/30/2020, 08/09/2020 Influenza Vaccine (FLU shot) (#1) 2024 04/19/2022, 04/07/2021, 03/19/2020, Additional history exists Colonoscopy 05/16/2026 05/16/2023, 09/2022, [...] this encounter Medical Devices Implanted Type Area Ceramic Sprayer Device Identifier Shelf Expiration Date Model / Serial / Lot 5.6cc, (Pk Of 4) 1in X 2in Mediuminfuse Bone Graft Kit Implanted:Qty: 1 on 01/25/2022 by Marshall Dupont MD at OR [facility] Bone N/A: Spine Lumbar Medtronic Sofamor Danek [id number] 02/10/2022 [id number] / [id number] / [id number] 25mm X 100mm X 4mm, 10cc Vitoss Bioactive Foam Strip, Synthetic Bone Graft Substitute, Ambient Implanted:Qty: 1 on 01/25/2022 by Marshall Dupont MD at OR [facility] Graft N/A: Spine Lumbar JERAMIE [id number] 03/10/202421012513-8529 / [id number] / [id number] Vitoss Bimodal Foam Pack Implanted:Qty: 1 on 01/25/2022 by Marshall Dupont MD at OR [facility] Graft N/A: Spine Lumbar JERAMIE [id number] 07/10/2023 5503-4051 / [id number] / [id number] 25mm X 100mm X 4mm, 10cc Vitoss Bioactive Foam Strip, Synthetic Bone Graft Substitute, Ambient Implanted:Qty: 1 on 01/25/2022 by Marshall Dupont MD at OR [facility] Graft N/A: Spine Lumbar JERAMIE [id number] 03/10/2024 / [id number] / [id number] Screw [place] Poly 06.5x50 Mm - [id number] Implanted:Qty: 8 on 01/25/2022 by Marshall Dupont MD at OR [facility] Screw N/A: Spine Lumbar [employer] [id number] 0 / / Set Screw Poly Atr [place] - [id number] Implanted:Qty: 8 on 01/25/2022 by Marshall Dupont MD at OR [facility] Screw N/A: Spine Lumbar JERAMIE : SPINE [id number] 1 / / Dbx 10 [id number] - [id number] - [id number] Implanted:Qty: 1 on 01/25/2022 by Marshall Dupont MD at OR [facility] Tissue - Human N/A: Spine Lumbar MUSCULOSKELETAL TRANSPLANT FND [id number] 09/09/2023 [id number] / [id number] / LOT NA Lens Intraoc 19.5 - [id number] - [id number] Implanted:Qty: 1 on 07/26/2017 by Orion Hernandez MD at OR [facility] Left: Eye BAUSCH & LOMB 02/10/2022 [id number] / [id number] Lens Intraoc 19.5 - [id number] - [id number] Implanted:Qty: 1 on 08/16/2017 by Orion Hernandez MD at OR [facility] Right: Eye BAUSCH & LOMB 12/10/2021 [id number] / [id number] Cage Inter [id number] 12 Deg - [id number] Implanted:Qty: 1 on 01/25/2022 by Marshall Dupont MD at OR [facility] N/A: Spine Lumbar JERAMIE : SPINE 03/02/2024 58-1028-1 208K / / [id number] Cage Inter [id number] 12 Deg Implanted:Qty: 1 on 01/25/2022 by Marshall Dupont MD at OR [facility] N/A: Spine Lumbar JERAMIE : SPINE 09/21/2024 58-1028-1 210K / / [id number] Cage Inter [id number] 15 Deg Implanted:Qty: 1 on 01/25/2022 by Marshall Dupont MD at OR [facility] N/A: Spine Lumbar JERAMIE : SPINE 03/30/2024 58-1028-1 510K / / [id number] Rene Implanted:Qty: 2 on 01/25/2022 by Marshall Dupont MD at OR [facility] N/A: Spine Lumbar JERAMIE : SPINE [id number] / / documented as of this encounter Visit Diagnoses Diagnosis BPH with obstruction/lower urinary tract symptoms Hypertrophy of prostate with urinary obstruction and other lower urinary tract symptoms (LUTS) Nocturia Atherosclerosis of [place] coronary artery of [place] heart without angina pectoris Dyslipidemia, goal LDL below 70 Other and unspecified hyperlipidemia documented in this encounter Advance Directives * [...] and were consensually agreed upon. Care Teams Agronomy Research Manager Relationship Specialty Start Date End Date Duglas Philippe III, MD [address] [place] [address] PCP - General 04/04/07 documented as of this encounter
--- OUTSIDE RECORDS SUMMARY | 2024-06-30 12:35 | External Medical Summary ---
Author Name Unknown Address Unknown Organization K09:[facility] [address] [place] [address] Laboratory Report Ordering Provider Test Date Status MEHRDAD SANCHEZ 02/27/2024 08:59:58 Final Observation Date Value Abnormality Reference (Units ) Status BUN 02/27/2024 08:59:58 11 6-20 (mg/dL) Final Creatinine 02/27/2024 08:59:58 0.8 0.6-1.2 (mg/dL) Final Glomerular filtration rate/1.73 sq M.predicted [Volume Rate/Area] in Serum, Plasma or Blood by Creatinine-based formula (CKD-EPI) 02/27/2024 08:59:58 >90 >=60 (mL/min) Final eGFR is calculated based on the CKD-EPI 2020 equation. Sodium 02/27/2024 08:59:58 136 135-146 (m mol/L) Final Potassium 02/27/2024 08:59:58 4.3 3.5-5.1 (m mol/L) Final Cl 02/27/2024 08:59:58 97 Below low normal 98- 107 (mmol/L) Final CO2 02/27/2024 08:59:58 26 22-32 (mmo l/L) Final Anion gap 02/27/2024 08:59:58 13 7-15 (mmol /L) Final Glucose 02/27/2024 08:59:58 98 70-120 (mg /dL) Final Albumin 02/27/2024 08:59:58 4.6 3.8-5.0 (g /dL) Final AST (Aspartate aminotransferase) 02/27/2024 08:59:58 30 10-50 (U/L) Fin al Alk Phos 02/27/2024 08:59:58 60 35-130 (U/ L) Final Bilirubin, Total 02/27/2024 08:59:58 0.6 <=1 .2 (mg/dL) Final Calcium 02/27/2024 08:59:58 9.6 8.4-10.2 ( mg/dL) Final Protein 02/27/2024 08:59:58 7.8 6.0-8.3 (g /dL) Final ALT (Alanine aminotransferase) 02/27/2024 08:59:58 26 10-50 (U/L) Robert shirley Performing Location [facility] [address] [place] [address]
--- OUTSIDE RECORDS SUMMARY | 2024-06-30 12:36 | External Medical Summary | Summary of Care ---
Author Name Unknown Organization [facility] Address [address] [place] [address] Phone [phone] Care Team Providers Care Director Hris Name Role Phone Denae LUNA MD, Duglas Bravo Primary Care Provider [phone] Encounter Details Date Type Department Care Team (Late st Contact Info) Description 01/16/2024 Result Scan Unspecified Department <No scans attached> Allergies No known active allergiesdocumented as of this encounter (statuses as of 01/17/2024) Medications Medication Sig Dispensed Refills Start Date End Date Status ASPIRIN 81 MG PO CHEWIndications:Coron anushka atherosclerosis of [place] coronary artery,HTN, goal below 140/90,Dyslipidemia, goal LDL [...] erectile dysfunction 30 Tablet 2 01/10/2023 Active Losartan Potassium 100 MG Oral Tablet (Cozaar) TAKE 1 TABLET BY MOUTH EVERY DAY 90 Tablet 3 01/24/2023 Active Nitroglycerin 0.4 MG Sublingual Tablet Sublingual (Nitrostat)Indication s:Acute [place], anterior wall (HCC) PLACE 1 TAB UNDER [...] BY MOUTH DAILY 45 Tablet 01/02/2024 Active documented as of this encounter (statuses as of 01/17/2024) Active Problems Problem Noted Date Diagnosed Date S/P lumbar laminectomy 01/25/2022 BPH with obstruction/lower urinary tract symptom s 09/18/2021 Dyslipidemia, goal LDL below 70 09/30/2010 OLD MYOCARDIAL INFARCT 01/02/2009 Overview: Modified by Acute [place] Protocol #5. CHR ISCHEMIC HRT DIS NOS 09/14/2005 ADVANCE DIRECTIVE INFORMATION 03/29/2005 Overview: No, Advance Directive brochure offered , patient declined. HTN, goal below 140/90 12/18/2001 Coronary atherosclerosis of [place] coronary sravanthi ry Alcohol abuse, continuous documented as of this encounter (statuses as of 01/17/2024) Resolved Problems Problem Noted Date Diagnosed Date Resolved Date Prediabetes 07/26/2017 01/21/2022 Overview: Per Prediabetes protocol #1 Palpitations 07/25/2013 09/22/2016 Discomfort in chest 07/25/2013 09/23/19 17 Acute PA, anterior wall 04/04/200712/12 Overview: Modified by Acute [place] Protocol #5. Spasm of muscle 09/22/2016 Overview: back documented as of this encounter (statuses as of 01/17/2024) Immunizations Name Administration Dates Next Due COVID-19 [...] lent, No Preserve, IM 03/24/2016,04/09/2015 Seasonal Influenza, Split, I IV3, With Preserve, Inj 04/23/2014,04/04/2013,03/23/2012,05/04,04/07/2010,04/11/2009,03/28/2008 ,06/08/2007,06/09/2006 Seasonal Influenza, Trivalen t, Adjuvanted, 65+ yrs 04/27/2019 TDAP (age 10 and older)(Boostrix) 07/25/2020 [...] 02/27/2024 1:30 PM EDT Office Visit Cardiology, [facility] [address] [place] [address] [place], [address] [place] [address] 02/28/2024 9:40 AM EDT Office Visit Family Practice [facility] [address] [facility] [place] [address] Duglas Philippe III, MD [address] [facility] [place] [address] Scheduled Procedures Name Priority Associated Diagnoses Date/Ti me COLONOSCOPY FLEXIBLE PROXIMA L DIAGNOSTIC Recall History of colonic polyps Health Maintenance Due Date Last Done Comments Albumin/Creatinine Ratio 1967 Cologuard 1994 Fecal Occult Blood Test 1994 Sigmoidoscopy 1994 Zoster Vaccines (2 of 3) 06/10/2015 04/15/2015 COVID-19 Vaccine ( - season) 2023 08/30/2020, 08/09/2020 GFR 12/30/2023 12/29/2022, 01/11, 01/27/2022, Additional history exists Depression Screening 01/11/2024 01/10/2023 Influenza Vaccine (FLU shot) (#1) 2024 04/19/2022, 04/07/2021, 03/19/2020, Additional history exists Colonoscopy 05/16/2026 05/16/2023, 09/2022, 04/10/2019, Additional history exists Colorectal Cancer Screening 05/16/2026 DTaP,Tdap,and Td Vaccines (3 - Td or Tdap) 07/25/2030 [...] this encounter Medical Devices Implanted Type Area Scaleman Device Identifier Shelf Expiration Date Model / Serial / Lot 5.6cc, (Pk Of 4) 1in X 2in Mediuminfuse Bone Graft Kit Implanted:Qty: 1 on 01/25/2022 by Marshall Dupont MD at OR [facility] Bone N/A: Spine Lumbar Medtronic Sofamor [place] [id number] 02/10/2022 [id number] / [id number] / [id number] 25mm X 100mm X 4mm, 10cc Vitoss Bioactive Foam Strip, Synthetic Bone Graft Substitute, Ambient Implanted:Qty: 1 on 01/25/2022 by Marshall Dupont MD at OR [facility] Graft N/A: Spine Lumbar JERAMIE [id number] 03/10/2024 0309-6329 / [id number] / [id number] Vitoss Bimodal Foam Pack Implanted:Qty: 1 on 01/25/2022 by Marshall Dupont MD at OR [facility] Graft N/A: Spine Lumbar JERAMIE [id number] 07/10/2023 5399-3770 / [id number] / [id number] 25mm X 100mm X 4mm, 10cc Vitoss Bioactive Foam Strip, Synthetic Bone Graft Substitute, Ambient Implanted:Qty: 1 on 01/25/2022 by Marshall Dupont MD at OR [facility] Graft N/A: Spine Lumbar JERAMIE [id number] 03/10/202421012319-5124 / [id number] / [id number] Screw [place] Poly 06.5x50 Mm - [id number] Implanted:Qty: 8 on 01/25/2022 by Marshall Dupont MD at OR [facility] Screw N/A: Spine Lumbar [employer]2M INC 0265-2296 0 / / Set Screw Poly Atr [place] - [id number] Implanted:Qty: 8 on 01/25/2022 by Marshall Dupont MD at OR [facility] Screw N/A: Spine Lumbar JERAMIE : SPINE 4949-9620 1 / / Dbx 10 071468 - [id number] - [id number] Implanted:Qty: 1 on 01/25/2022 by Marshall Dupont MD at OR [facility] Tissue - Human N/A: Spine Lumbar MUSCULOSKELETAL TRANSPLANT FND [id number] 09/09/2023 455317 / [id number] / LOT NA Lens Intraoc 19.5 - [id number] - [id number] Implanted:Qty: 1 on 07/26/2017 by Orion Hernandez MD at OR [facility] Left: Eye BAUSCH & LOMB 02/10/2022 [id number] / [id number] Lens Intraoc 19.5 - [id number] - [id number] Implanted:Qty: 1 on 08/16/2017 by Orion Hernandez MD at OR [facility] Right: Eye BAUSCH & LOMB 12/10/2021 [id number] / [id number] Cage Inter [id number] 12 Deg - [id number] Implanted:Qty: 1 on 01/25/2022 by Marshall Dupont MD at OR [facility] N/A: Spine Lumbar JERAMIE : SPINE 03/02/2024 58-1028-1 208K / / [id number] Cage Inter [id number] 12 Deg Implanted:Qty: 1 on 01/25/2022 by Marshall Dupont MD at OR [facility] N/A: Spine Lumbar JERAMIE : SPINE 09/21/2024 58-1028-1 210K / / [id number] Cage Inter [id number] 15 Deg Implanted:Qty: 1 on 01/25/2022 by Marshall Dupont MD at OR [facility] N/A: Spine Lumbar JERAMIE : SPINE 03/30/2024 58-1028-1 510K / / [id number] Rene Implanted:Qty: 2 on 01/25/2022 by Marshall Dupont MD at OR [facility] N/A: Spine Lumbar JERAMIE : SPINE [id number] 0 / / documented as of this encounter Procedures Procedure Name Priority Date/Time Associated Diagnosis Comments PROCEDURE SCANNED RESULT 01/16/2024 documented in this encounter Results * PROCEDURE SCANNED RESULT (01/16/2024) 01/16/2024 No Physician Data Unknown SURGERY documented in this encounter Advance Directives * Full Code (Latest Code Status on File) Date Activated Date Inactivated Comments 01/25/2022 2:52 PM 01/28/2022 8:12 PM This order reflects the patients wishes [...] and were consensually agreed upon. Care Teams Director Hris Relationship Specialty Start Date End Date Duglas Philippe III, MD [address] [place] [address] PCP - General 04/04/07 documented as of this encounter
--- OUTSIDE RECORDS SUMMARY | 2024-06-30 12:36 | External Medical Summary | Summary of Care ---
Author Name Unknown Organization [facility] Address [address] [facility] [address] Phone [phone] Care Team Providers Care Harness Rigger Name Role Phone Denae LUNA MD, Damon Bravo Primary Care Provider [phone] [phone] Reason for Visit * Reason Comments eRx-Medication Refill Encounter Details Date Type Department Care Team (Late st Contact Info) Description 01/20/[facility]24 [facility] [place] [address] [facility] [place] [address] Damon White III, MD [address] [facility] [address] [place] [facility] [address] Allergies No known active allergiesdocumented as of this encounter (statuses as of 01/20/2024) Medications Medication Sig Dispensed Refills Start Date End Date Status ASPIRIN 81 MG PO CHEWIndications:Cor onary atherosclerosis of [place] coronary artery,HTN, goal below 140/90,Dyslipidemia , goal LDL below 70 take one tablet daily 100 Tab 3 1 Active Apple Cider Vinegar 300 MG TABSIndications:regis es 2 tablespoons daily Take 1 Tab by mouth daily. Indications: takes 2 tablespoons daily Active CoQ10 100 MG Oral Capsule Take by mouth 1 Capsule daily . 30 Capsule 5 2 Active Diclofenac Sodium 1 % External Gel (Voltaren) Apply topically to affected area 2 times a day as needed for Pain, Moderate. Apply to to the affected areas 150 g 1 2 Active Additional Information Patient not taking.Reported on 08/02/2023 Sildenafil Citrate 20 MG Oral Tablet (Revatio)Indication s:Erectile dysfunction, unspecified erectile dysfunction type 2-5 tabs as needed erectile dysfunction 30 Tablet 2 3 Active Nitroglycerin 0.4 MG Sublingual Tablet Sublingual (Nitrostat)Indicati ons:Acute [place], anterior wall (HCC) PLACE 1 TAB UNDER THE TONGUE NEEDED FOR CHEST PAIN, MAX 3 DOSES 25 Tablet 11 3 Active Metoprolol Tartrate 50 MG Oral Tablet (Lopressor)Indicati ons:HTN, goal below 140/90 TAKE 1 TABLET BY MOUTH TWICE A DAY 180 Tablet 2 4 Active Rosuvastatin Calcium 40 MG Oral Tablet (Crestor)Indication s:Dyslipidemia, goal LDL below 70 TAKE 1 TABLET BY MOUTH EVERY DAY IN THE MORNING 90 Tablet 3 4 Active Mirabegron ER 25 MG Oral Tablet Extended Release 24 Hour (Myrbetriq) Take 1 Tablet by mouth in the morning. 30 Tablet 6 4 Active Additional Information Patient not taking.Reported on 09/13/2023 Solifenacin Succinate 10 MG Oral Tablet (VESIcare) TAKE ONE TABLET BY MOUTH IN THE MORNING 30 Tablet 6 4 Active Ezetimibe 10 MG Oral Tablet (Zetia) TAKE 1 TABLET BY MOUTH EVERY DAY IN THE MORNING 90 Tablet 4 Active Chlorthalidone 25 MG Oral Tablet (Hygroton)Indicatio ns:HTN, goal below 140/90,Chronic ischemic heart disease TAKE 1/2 TABLET BY MOUTH DAILY 45 Tablet 4 Active Losartan Potassium 100 MG Oral Tablet (Cozaar) TAKE 1 TABLET BY MOUTH EVERY DAY 90 Tablet 4 Active Losartan Potassium 100 MG Oral Tablet (Cozaar) TAKE 1 TABLET BY MOUTH EVERY DAY 90 Tablet 3 3 01/20/20 24 Discontinued documented as of this encounter (statuses as of 01/20/2024) Active Problems Problem Noted Date Diagnosed Date S/P lumbar laminectomy 01/25/2022 BPH with obstruction/lower urinary tract symptom s 09/18/2021 Dyslipidemia, goal LDL below 70 09/30/2010 OLD MYOCARDIAL INFARCT 01/02/2009 Overview: Modified by Acute [place] Protocol #5. CHR ISCHEMIC HRT DIS NOS 09/14/2005 ADVANCE DIRECTIVE INFORMATION 03/29/2005 Overview: No, Advance Directive brochure offered , patient declined. HTN, goal below 140/90 12/18/2001 Coronary atherosclerosis of [place] coronary sravanthi ry Alcohol abuse, continuous documented as of this encounter (statuses as of 01/20/2024) Resolved Problems Problem Noted Date Diagnosed Date Resolved Date Prediabetes 07/26/2017 01/21/2022 Overview: Per Prediabetes protocol #1 Palpitations 07/25/2013 09/22/2016 Discomfort in chest 07/25/2013 09/23/19 17 Acute [place], anterior wall 04/04/200712/12 Overview: Modified by Acute [place] Protocol #5. Spasm of muscle 09/22/2016 Overview: back documented as of this encounter (statuses as of 01/20/2024) Immunizations Name Administration Dates Next Due COVID-19 mRNA, LNP-s, No Pre serve, 2-Dose Series (Reverse Mortgage Lenders Direct) 08/30/2020,08/09/2020 Pneumococcal Conjugate Vacc, 13 Valent (Prevnar) [...] encounter Miscellaneous Notes * Telephone Encounter - Edi Wade [facility] - 01/20/2024 7:00 PM EDTSigned Prescriptions: Disp Refills Losartan Potassium 100 MG Oral Tablet (Coz*90 Tab*0 Sig: TAKE 1 TABLET BY MOUTH EVERY DAYAuthorizing Provider: DAMON WHITE III User: EDI ENGLAND----- * Telephone Encounter - Edi Wade [facility] - 01/20/2024 7:00 PM EDT Provided 90 days supply with 0 refill(s) until upcoming appointment. Per refill protocol patient should have CMP on file within past year. Reviewed AMP report, Care Gaps/Health Maintenance, medications list, and for any routine labs typically ordered for this patient. Lab orders placed. Please contact patient to advise of labs ordered for blood draw. Fasting is not required. Advise toobtain labs before his scheduled office visit 02/28/2024. Thank You, Edi England [facility] Clinical Pharmacist [facility] ([facility]) 01/20/2024, 7:00 PM * Telephone Encounter - Edi Wade [facility] - 01/20/2024 6:59 PM EDT Pending Prescriptions: Disp Refills Losartan Potassium 100 MG Oral Tablet (Co*90 Tab*3 Sig: TAKE 1 TABLET BY MOUTH EVERY DAY Last Visit: 01/10/2023 (in office), Visit date not found (telemedicine) Next Visit: 02/28/2024 If no future appointments scheduled, and last appointment is greater than a year ago, please schedule patient for a follow-up appointment Last date the medication was ordered: 01/24/23 Pharmacy: [id number] [id number] [facility] Is this request for a controlled substance? No Urine Drug Screen:No results found for this or any previous visit. Patient Phone Numbers Labs: Lab Results Component Value Date/Time CREAT 0.7 12/29/2022 09:55 AM CREAT 1.0 06/10/2020 02:31 PM POTASSIUM 4.1 12/29/2022 09:55 AM POTASSIUM 4.4 06/10/2020 02:31 PM TSH 2.29 02/04/2014 08:57 AM LDLCALC 34 12/29/2022 09:55 AM LDLCALC 69 05/31/2019 01:09 PM LDLDIRECT 79 06/10/2020 02:31 PM LDLDIRECT 66 06/23/2006 12:12 PM ALT 28 12/29/2022 09:55 AM ALT 27 06/10/2020 02:31 PM HGBA1C 5.5 12/21/2021 10:58 AM HGBA1C 6.0 (H) 04/03/2020 09:40 AM documented in this encounter Plan of Treatment Upcoming Encounters Date Type Department Care Team (Late st Contact Info) Description 02/27/2024 1:30 PM EDT Office Visit Cardiology, [facility] [address] [place] [address] Guerrero Del Rio DO [address] [place] [place] [address] 02/28/2024 9:40 AM EDT Office Visit Family Practice [place] [address] [facility] [place] [address] Damon White III, MD [address] [facility] [place] [address] Scheduled Procedures Name Priority Associated Diagnoses Date/Ti me COLONOSCOPY FLEXIBLE PROXIMA L DIAGNOSTIC Recall History of colonic polyps Health Maintenance Due Date Last Done Comments Albumin/Creatinine Ratio 1967 Cologuard 1994 Fecal Occult Blood Test 1994 Sigmoidoscopy 1994 Zoster Vaccines (2 of 3) 06/10/2015 04/15/2015 Adult Wellness Visit 01/05/2022 01/05/2021 COVID-19 Vaccine (3 - season) 2023 08/30/2020, 08/09/2020 GFR 12/30/2023 [...] this encounter Medical Devices Implanted Type Area Solar Energy Specialist Device Identifier Shelf Expiration Date Model / Serial / Lot 5.6cc, (Pk Of 4) 1in X 2in Mediuminfuse Bone Graft Kit Implanted:Qty: 1 on 01/25/2022 by Marshall Dupont MD at OR [facility] Bone N/A: Spine Lumbar Medtronic Sofamor Danek [id number] 02/10/2022 [id number] / [id number] / [id number] S 25mm X 100mm X 4mm, 10cc Vitoss Bioactive Foam Strip, Synthetic Bone Graft Substitute, Ambient Implanted:Qty: 1 on 01/25/2022 by Marshall Dupont MD at OR [facility] Graft N/A: Spine Lumbar JERAMIE [id number] 03/10/[id number] / [id number] / [id number] Vitoss Bimodal Foam Pack Implanted:Qty: 1 on 01/25/2022 by Marshall Dupont MD at OR [facility] Graft N/A: Spine Lumbar JERAMIE [id number] 07/10/2023 2761-9660 / [id number] / [id number] 25mm X 100mm X 4mm, 10cc Vitoss Bioactive Foam Strip, Synthetic Bone Graft Substitute, Ambient Implanted:Qty: 1 on 01/25/2022 by Marshall Dupont MD at OR [facility] Graft N/A: Spine Lumbar JERAMIE [id number] 03/10/2024 2428-6157 / [id number] / [id number] Screw [place] Poly 06.5x50 Mm - [id number] Implanted:Qty: 8 on 01/25/2022 by Marshall Dupont MD at OR [facility] Screw N/A: Spine Lumbar [employer] 4171-0395 0 / / Set Screw Poly Atr [place] - [id number] Implanted:Qty: 8 on 01/25/2022 by Marshall Dupont MD at OR [facility] Screw N/A: Spine Lumbar JERAMIE : SPINE [id number] 1 / / Dbx 10 [id number] - [id number] - [id number] Implanted:Qty: 1 on 01/25/2022 by Marshall Dupont MD at OR [facility] Tissue - Human N/A: Spine Lumbar MUSCULOSKELETAL TRANSPLANT FND [id number] 09/09/2023 [id number] / [id number] / LOT NA Lens Intraoc 19.5 - [id number] - [id number] Implanted:Qty: 1 on 07/26/2017 by Orion Hernandez MD at OR [facility] Left: Eye BAUSCH & LOMB 02/10/2022 [id number] / [id number] Lens Intraoc 19.5 - [id number] - [id number] Implanted:Qty: 1 on 08/16/2017 by Orion Hernandez MD at OR [facility] Right: Eye BAUSCH & LOMB 12/10/2021 [id number] / [id number] Cage Inter [id number] 12 Deg - [id number] Implanted:Qty: 1 on 01/25/2022 by Marshall Dupont MD at OR [facility] N/A: Spine Lumbar JERAMIE : SPINE 03/02/2024 58-1028-1 208K / / [id number] Cage Inter [id number] 12 Deg Implanted:Qty: 1 on 01/25/2022 by Marshall Dupont MD at OR [facility] N/A: Spine Lumbar JERAMIE : SPINE 09/21/2024 58-1028-1 210K / / [id number] Cage Inter [id number] 15 Deg Implanted:Qty: 1 on 01/25/2022 by Marshall Dupont MD at OR [facility] N/A: Spine Lumbar JERAMIE : SPINE 03/30/2024 58-1028-1 510K / / [id number] Rene Implanted:Qty: 2 on 01/25/2022 by Marshall Dupont MD at OR [facility] N/A: Spine Lumbar JERAMIE : SPINE [id number] 0 / / documented as of this [...] and were consensually agreed upon. Care Teams Harness Rigger Relationship Specialty Start Date End Date Damon White III, MD [address] [place] [address] PCP - General 04/04/07 documented as of this encounter
--- OUTSIDE RECORDS SUMMARY | 2024-06-30 12:36 | External Medical Summary | Summary of Care ---
Author Name Unknown Organization [facility] Address [address] [place] [address] Phone [phone] Care Team Providers Care Fixer Boarding Room Name Role Phone Denae LUNA MD, Duglas Bravo Primary Care Provider [phone] [phone] Encounter Details Date Type Department Care Team (Late st Contact Info) Description 01/30/2024 Orders Only Outcomes Research Department [address], [place] [id number] [place] [facility] Impliant Research Other*[id number] Allergies No known active allergiesdocumented as of this encounter (statuses as of 01/30/2024) Medications Medication Sig Dispensed Refills Start Date End Date Status ASPIRIN 81 MG PO CHEWIndications:Coron anushka atherosclerosis of [place] coronary artery,HTN, goal below 140/90,Dyslipidemia, goal LDL [...] 0.4 MG Sublingual Tablet Sublingual (Nitrostat)Indication s:Acute [place], anterior wall (HCC) PLACE 1 TAB UNDER [...] as of this encounter (statuses as of 01/30/2024) Active Problems Problem Noted Date Diagnosed Date S/P lumbar laminectomy 01/25/2022 BPH with obstruction/lower urinary tract symptom s 09/18/2021 Dyslipidemia, goal LDL below 70 09/30/2010 OLD MYOCARDIAL INFARCT 01/02/2009 Overview: Modified by Acute [place] Protocol #5. CHR ISCHEMIC HRT DIS NOS 09/14/2005 ADVANCE DIRECTIVE INFORMATION 03/29/2005 Overview: No, Advance Directive brochure offered , patient declined. HTN, goal below 140/90 12/18/2001 Coronary atherosclerosis of [place] coronary sravanthi ry Alcohol abuse, continuous documented as of this encounter (statuses as of 01/30/2024) Resolved Problems Problem Noted Date Diagnosed Date Resolved Date Prediabetes 07/26/2017 01/21/2022 Overview: Per Prediabetes protocol #1 Palpitations 07/25/2013 09/22/2016 Discomfort in chest 07/25/2013 09/23/19 Acute [place], anterior wall 04/04/200712/12 Overview: Modified by Acute [place] Protocol #5. Spasm of muscle 09/22/2016 Overview: back documented as of this encounter (statuses as of 01/30/2024) Immunizations Name Administration Dates Next Due COVID-19 [...] 02/27/2024 1:30 PM EDT Office Visit Cardiology, [facility] [address] [place] [address] Guerrero Del Rio DO [address] [place] [address] 02/28/2024 9:40 AM EDT Office Visit Family Practice [facility] [address] [facility] [place] [address] Duglas Philippe III, MD [address] [facility] [place] [address] Scheduled Orders Name Type Priority Associated Diagnoses Orde r Schedule MYCODE INITIAL ADULT Lab Routine MyCode Research Other*[id number] Expected: 01/30/2024 (Approximate), Expires: 02/18/2025 Scheduled Procedures Name Priority Associated Diagnoses Date/Ti me COLONOSCOPY FLEXIBLE PROXIMA L DIAGNOSTIC Recall History of colonic polyps Health Maintenance Due Date Last Done Comments Albumin/Creatinine Ratio 1967 Cologuard 1994 Fecal Occult Blood Test 1994 Sigmoidoscopy 1994 Zoster Vaccines (2 of 3) 06/10/2015 04/15/2015 Adult Wellness Visit 01/05/2022 01/05/2021 COVID-19 Vaccine ( season) 2023 08/30/2020, 08/09/2020 GFR 12/30/2023 12/29/2022, 01/11, 01/27/2022, Additional history exists Depression Screening 01/11/2024 01/10/2023 Influenza Vaccine (FLU shot) (#1) 2024 04/19/2022, 04/07/2021, 03/19/2020, Additional history exists Colonoscopy 05/16/2026 05/16/2023, 120 09/2022, 04/10/2019, Additional history exists Colorectal Cancer [...] this encounter Medical Devices Implanted Type Area Biscuit Factory Worker Device Identifier Shelf Expiration Date Model / Serial / Lot 5.6cc, (Pk Of 4) 1in X 2in Mediuminfuse Bone Graft Kit Implanted:Qty: 1 on 01/25/2022 by Marshall Dupont MD at OR [facility] Bone N/A: Spine Lumbar Medtronic Sofamor Danek [id number] 02/10/2022 [id number] / [id number] / [id number] 25mm X 100mm X 4mm, 10cc Vitoss Bioactive Foam Strip, Synthetic Bone Graft Substitute, Ambient Implanted:Qty: 1 on 01/25/2022 by Marshall Dupont MD at OR [facility] Graft N/A: Spine Lumbar JERAMIE [id number] 03/10/2024 9261-1478 / [id number] / [id number] Vitoss Bimodal Foam Pack Implanted:Qty: 1 on 01/25/2022 by Marshall Dupont MD at OR [facility] Graft N/A: Spine Lumbar JERAMIE [id number] 07/10/2023 7615-5078 / [id number] / [id number] 25mm X 100mm X 4mm, 10cc Vitoss Bioactive Foam Strip, Synthetic Bone Graft Substitute, Ambient Implanted:Qty: 1 on 01/25/2022 by Marshall Dupont MD at OR [facility] Graft N/A: Spine Lumbar JERAMIE [id number] 03/10/2024 7133-3737 / [id number] / [id number] Screw [place] Poly 06.5x50 Mm - [id number] Implanted:Qty: 8 on 01/25/2022 by Marshall Dupont MD at OR [facility] Screw N/A: Spine Lumbar K2M INC 7292-6770 0 / / Set Screw Poly Atr [place] - [id number] Implanted:Qty: 8 on 01/25/2022 by Marshall Dupont MD at OR [facility] Screw N/A: Spine Lumbar JERAMIE : SPINE 0371-3695 1 / / Dbx 10cc 601432 - [id number] - [id number] Implanted:Qty: 1 on 01/25/2022 by Marshall Dupont MD at OR [facility] Tissue - Human N/A: Spine Lumbar MUSCULOSKELETAL TRANSPLANT FND [id number] 09/09/2023 [id number] / [id number] / LOT NA Lens Intraoc 19.5 - [id number] - [id number] Implanted:Qty: 1 on 07/26/2017 by Orion Hernandez MD at OR [facility] Left: Eye BAUSCH & LOMB 02/10/2022 [id number] / [id number] Lens Intraoc 19.5 - [id number] - [id number] Implanted:Qty: 1 on 08/16/2017 by Orion Hernandez MD at OR [facility] Right: Eye BAUSCH & LOMB 12/10/2021 [id number] / [id number] Cage Inter [id number] 12 Deg - [id number] Implanted:Qty: 1 on 01/25/2022 by Marshall Dupont MD at OR [facility] N/A: Spine Lumbar JERAMIE : SPINE 03/02/2024 58-1028-1 208K / / [id number] Cage Inter [id number] 12 Deg Implanted:Qty: 1 on 01/25/2022 by Marshall Dupont MD at OR [facility] N/A: Spine Lumbar JERAMIE : SPINE 09/21/2024 58-1028-1 210K / / [id number] Cage Inter [id number] 15 Deg Implanted:Qty: 1 on 01/25/2022 by Marshall Dupont MD at OR [facility] N/A: Spine Lumbar JERAMIE : SPINE 03/30/2024 58-1028-1 510K / / [id number] Rene Implanted:Qty: 2 on 01/25/2022 by Marshall Dupont MD at OR [facility] N/A: Spine Lumbar JERAMIE : SPINE [id number] 0 / / documented as of this encounter Visit Diagnoses Diagnosis MyCode Research Other*[id number] documented in this encounter Advance Directives * [...] and were consensually agreed upon. Care Teams Fixer Boarding Room Relationship Specialty Start Date End Date Duglas Philippe III, MD [address] [facility] [place] [address] PCP - General 04/04/07 documented as of this encounter
--- OUTSIDE RECORDS SUMMARY | 2024-06-30 12:36 | External Medical Summary | Summary of Care ---
Author Name Unknown Organization [facility] Address [address] [address] Phone [phone] Care Team Providers Care Improvement Engineer Name Role Phone Denae LUNA MD, Damon Bravo Primary Care Provider [phone] Reason for Visit * Reason Comments eRx-Medication Refill Encounter Details Date Type Department Care Team (Late st Contact Info) Description 01/20/2024 [facility] [place] [address] [facility] [place] [address] Damon White III, MD [address] [facility] [address] [place] [facility] [address] Allergies No known active allergiesdocumented as of this encounter (statuses as of 02/03/2024) Medications Medication Sig Dispensed Refills Start Date End Date Status ASPIRIN 81 MG PO CHEWIndications:Cor onary atherosclerosis of [place] coronary artery,HTN, goal below 140/90,Dyslipidemia , goal [...] 0.4 MG Sublingual Tablet Sublingual (Nitrostat)Indicati ons:Acute NV, anterior wall (HCC) PLACE 1 TAB UNDER [...] as of this encounter (statuses as of 02/03/2024) Active Problems Problem Noted Date Diagnosed Date S/P lumbar laminectomy 01/25/2022 BPH with obstruction/lower urinary tract symptom s 09/18/2021 Dyslipidemia, goal LDL below 70 09/30/2010 OLD MYOCARDIAL INFARCT 01/02/2009 Overview: Modified by Acute NV Protocol #5. CHR ISCHEMIC HRT DIS NOS 09/14/2005 ADVANCE DIRECTIVE INFORMATION 03/29/2005 Overview: No, Advance Directive brochure offered , patient declined. HTN, goal below 140/90 12/18/2001 Coronary atherosclerosis of [place] coronary sravanthi ry Alcohol abuse, continuous documented as of this encounter (statuses as of 02/03/2024) Resolved Problems Problem Noted Date Diagnosed Date Resolved Date Prediabetes 07/26/2017 01/21/2022 Overview: Per Prediabetes protocol #1 Palpitations 07/25/2013 09/22/2016 Discomfort in chest 07/25/2013 09/23/19 17 Acute NV, anterior wall 04/04/200712/12 Overview: Modified by Acute NV Protocol #5. Spasm of muscle 09/22/2016 Overview: back documented as of this encounter (statuses as of 02/03/2024) Immunizations Name Administration Dates Next Due COVID-19 mRNA, LNP-s, No Pre serve, 2-Dose Series (Nexopia) 08/30/2020,08/09/2020 Pneumococcal Conjugate Vacc, 13 Valent (Prevnar) [...] encounter Miscellaneous Notes * Telephone Encounter - Noe Ramirez - 02/03/2024 2:08 PM EDT Received message from [facility] regarding patient needing labs. Patient was notified. Successfully contacted patient and provided [facility] message. * Telephone Encounter - Edi Wade [facility] - 01/20/2024 7:00 PM EDTSigned Prescriptions: Disp Refills Losartan Potassium 100 MG Oral Tablet (Coz*90 Tab*0 Sig: TAKE 1 TABLET BY MOUTH EVERY DAYAuthorizing Provider: DAMON WHITE III User: EDI GORDON----- * Telephone Encounter - Edi Wade [facility] - 01/20/2024 7:00 PM EDT Provided 90 [...] scheduled office visit 02/28/2024. Thank You, Edi Gordon [facility] Clinical Pharmacist [facility] ([facility]) 01/20/2024, 7:00 PM * Telephone Encounter - Edi Wade RP - 01/20/2024 6:59 PM EDT Pending Prescriptions: [...] the medication was ordered: 01/24/23 Pharmacy: [id number] Is this request for a controlled substance? [...] 02/27/2024 1:30 PM EDT Office Visit Cardiology, [facility] [address] [place] [address] Guerrero Del Rio DO [address] [place] [address] 02/28/2024 9:40 AM EDT Office Visit Family Practice [facility] [address] [facility] [place] [address] Damon White III, MD [address] [facility] [place] [address] Scheduled Procedures Name Priority Associated Diagnoses Date/Ti [...] this encounter Medical Devices Implanted Type Area Marketing Communications Manager Device Identifier Shelf Expiration Date Model / Serial / Lot 5.6cc, (Pk Of 4) 1in X 2in Mediuminfuse Bone Graft Kit Implanted:Qty: 1 on 01/25/2022 by Marshall Dupont MD at OR [facility] Bone N/A: Spine Lumbar Medtronic Sofamor Danek [id number] 02/10/2022 [id number] / [id number] / [id number] S 25mm X 100mm X 4mm, 10cc Vitoss Bioactive Foam Strip, Synthetic Bone Graft Substitute, Ambient Implanted:Qty: 1 on 01/25/2022 by Marshall Dupont MD at OR [facility] Graft N/A: Spine Lumbar JERAMIE [id number] 03/10/2024 2774-7418 / [id number] / [id number] Vitoss Bimodal Foam Pack Implanted:Qty: 1 on 01/25/2022 by Marshall Dupont MD at OR [facility] Graft N/A: Spine Lumbar JERAMIE [id number] 07/10/2023 9899-5056 / [id number] / [id number] 25mm X 100mm X 4mm, 10cc Vitoss Bioactive Foam Strip, Synthetic Bone Graft Substitute, Ambient Implanted:Qty: 1 on 01/25/2022 by Marshall Dupont MD at OR [facility] Graft N/A: Spine Lumbar JERAMIE [id number] 03/10/2024 6689-8633 / [id number] / [id number] Screw [place] Poly 06.5x50 Mm - [id number] Implanted:Qty: 8 on 01/25/2022 by Marshall Dupont MD at OR [facility] Screw N/A: Spine Lumbar [employer] 9205-0646 0 / / Set Screw Poly Atr [place] - [id number] Implanted:Qty: 8 on 01/25/2022 by Marshall Dupont MD at OR [facility] Screw N/A: Spine Lumbar JERAMIE : SPINE 9927-9935 1 / / Dbx 10cc [id number] - [id number] - [id number] Implanted:Qty: 1 on 01/25/2022 by Marshall Dupont MD at OR [facility] Tissue - Human N/A: Spine Lumbar MUSCULOSKELETAL TRANSPLANT FND [id number] 09/09/2023 [id number] / [id number] / LOT NA Lens Intraoc 19.5 - [id number] - [id number] Implanted:Qty: 1 on 07/26/2017 by Orion Hernandez MD at OR [facility] Left: Eye BAUSCH & LOMB 02/10/2022 [id number] / [id number] / [id number] Lens Intraoc 19.5 - [id number] - [id number] Implanted:Qty: 1 on 08/16/2017 by Orion Hernandez MD at OR [facility] Right: Eye BAUSCH & LOMB 12/10/2021 [id number] / [id number] / [id number] Cage Inter [id number] 12 Deg - [id number] Implanted:Qty: 1 on 01/25/2022 by Marshall Dupont MD at OR [facility] N/A: Spine Lumbar JERAMIE : SPINE 03/02/2024 58-1028-1 208K / / [id number] Cage Inter [id number] 12 Deg Implanted:Qty: 1 on 01/25/2022 by Marshall Dupont MD at OR [facility] N/A: Spine Lumbar JERAMIE : SPINE 09/21/2024 58-1028-1 210K / / [id number] Cage Inter [id number] 15 Deg Implanted:Qty: 1 on 01/25/2022 by Marshall Dupont MD at OR [facility] N/A: Spine Lumbar JERAMIE : SPINE 03/30/2024 58-1028-1 510K / / [id number] Rene Implanted:Qty: 2 on 01/25/2022 by Marshall Dupont MD at OR [facility] N/A: Spine Lumbar JERAMIE : SPINE [id number] 0 / / documented as of this [...] and were consensually agreed upon. Care Teams Improvement Engineer Relationship Specialty Start Date End Date Damon White III, MD [address] [facility] [place] [address] PCP - General 04/04/07 documented as of this encounter
--- OUTSIDE RECORDS SUMMARY | 2024-06-30 12:36 | External Medical Summary | Summary of Care ---
Author Name Unknown Organization [facility] Address [address] [facility] [address] Phone [phone] Care Team Providers Care Well Logging Captain Name Role Phone Denae LUNA MD, Damon Bravo Primary Care Provider [phone] Reason for Visit * Reason Comments eRx-Medication Refill Encounter Details Date Type Department Care Team (Late st Contact Info) Description 01/01/2024 [facility] [place] [address] [facility] [place] [address] Damon White III, MD [address] [facility] [place] [address] HTN, goal below 140/90; CHR ISCHEMIC HRT DIS NOS Allergies No known active allergiesdocumented as of this encounter (statuses as of 01/10/2024) Medications Medication Sig Dispensed Refills Start Date End Date Status ASPIRIN 81 MG PO CHEWIndications:Cor onary atherosclerosis of [place] coronary artery,HTN, goal below 140/90,Dyslipidemia , goal [...] erectile dysfunction 30 Tablet 2 3 Active Losartan Potassium 100 MG Oral Tablet (Cozaar) TAKE 1 TABLET BY MOUTH EVERY DAY 90 Tablet 3 3 Active Nitroglycerin 0.4 MG Sublingual Tablet Sublingual (Nitrostat)Indicati ons:Acute PA, anterior wall (HCC) PLACE 1 TAB [...] BY MOUTH DAILY 45 Tablet 4 Active Chlorthalidone 25 MG Oral Tablet (Hygroton)Indicatio ns:HTN, goal below 140/90,Chronic ischemic heart disease TAKE 1/2 TABLET BY MOUTH EVERY DAY 45 Tablet 3 3 01/02/20 24 Discontinued Ezetimibe 10 MG Oral Tablet (Zetia) TAKE 1 TABLET BY MOUTH EVERY DAY IN THE MORNING 90 Tablet 2 3 01/02/20 24 Discontinued documented as of this encounter (statuses as of 01/10/2024) Active Problems Problem Noted Date Diagnosed Date S/P lumbar laminectomy 01/25/2022 BPH with obstruction/lower urinary tract symptom s 09/18/2021 Dyslipidemia, goal LDL below 70 09/30/2010 OLD MYOCARDIAL INFARCT 01/02/2009 Overview: Modified by Acute PA Protocol #5. CHR ISCHEMIC HRT DIS NOS 09/14/2005 ADVANCE DIRECTIVE INFORMATION 03/29/2005 Overview: No, Advance Directive brochure offered , patient declined. HTN, goal below 140/90 12/18/2001 Coronary atherosclerosis of [place] coronary sravanthi ry Alcohol abuse, continuous documented as of this encounter (statuses as of 01/10/2024) Resolved Problems Problem Noted Date Diagnosed Date Resolved Date Prediabetes 07/26/2017 01/21/2022 Overview: Per Prediabetes protocol #1 Palpitations 07/25/2013 09/22/2016 Discomfort in chest 07/25/2013 09/23/19 17 Acute PA, anterior wall 04/04/200712/12 Overview: Modified by Acute PA Protocol #5. Spasm of muscle 09/22/2016 Overview: back documented as of this encounter (statuses as of 01/10/2024) Immunizations Name Administration Dates Next Due COVID-19 mRNA, LNP-s, No Pre serve, 2-Dose Series ([place]) 08/30/2020,08/09/2020 Pneumococcal Conjugate Vacc, 13 Valent (Prevnar) [...] * Telephone Encounter - Noe Ramirez - 01/10/2024 7:58 AM EDT Received message from [facility] regarding patient needing labs. Patient was notified. Successfully contacted patient and provided [facility] message. * Telephone Encounter - Guero Florez [facility] - 01/02/2024 8:10 AM EDTSigned Prescriptions: Disp Refills Ezetimibe 10 MG Oral Tablet (Zetia) 90 Tab*0 Sig: TAKE 1 TABLET BY MOUTH EVERY DAY IN THE MORNING Authorizing Provider: DAMON WHITE III Ordering User: GUERO FLOREZ Chlorthalidone 25 MG Oral Tablet (Hygroton)45 Tab*0 Sig: TAKE 1/2 TABLET BY MOUTH DAILY Authorizing Provider: DAMON WHITE III Ordering User: GUERO FLOREZ * Telephone Encounter - Guero Florez [facility] - 01/02/2024 8:05 AM EDT Provided 90 days supply with 0 refill(s) until upcoming appointment. Per refill protocol patient should have CMP and lipid panel on file within past year. Reviewed AMP report, Care Gaps/Health Maintenance, medications list, and for any routine labs typically ordered for this patient. Lab orders placed. Please contact patient to advise of labs ordered for blood draw. Recommend patient to fast if able for labs. Patient may still have water and regular medications. Advise to obtain labs before requesting the next refill. Thank You, Guero Florez, Pharm-D Clinical Pharmacist [facility] ([facility]) [phone] 01/02/2024, 8:08 AM documented in this encounter Plan of Treatment Upcoming Encounters Date Type Department Care Team (Late st Contact Info) Description 01/18/2024 2:40 PM EDT Office Visit Family Practice [facility] [address] [facility] [place] [address] Damon White III, MD 200 [place] [address] 02/27/2024 1:30 PM EDT Office Visit Cardiology, [facility] [address] [place] [address] Guerrero Del Rio DO [address] [place] [address] Scheduled Procedures Name Priority Associated Diagnoses Date/Ti me COLONOSCOPY FLEXIBLE PROXIMA L DIAGNOSTIC Recall History of colonic polyps Health Maintenance Due Date Last Done Comments Albumin/Creatinine Ratio 1967 Cologuard 1994 Fecal Occult Blood Test 1994 Sigmoidoscopy 1994 Zoster Vaccines (2 of 3) 06/10/2015 04/15/2015 COVID-19 Vaccine ( season) 2023 08/30/2020, 08/09/2020 GFR 12/30/2023 12/29/2022, 01/11, 01/27/2022, Additional history exists Depression Screening 01/11/2024 01/10/2023 Influenza Vaccine (FLU shot) (#1) 2024 04/19/2022, 04/07/2021, 03/19/2020, Additional history exists Colonoscopy 05/16/2026 05/16/2023, 09/2022, 04/10/2019, Additional history exists Colorectal Cancer Screening 05/16/2026 DTaP,Tdap,and Td Vaccines (3 - Td or Tdap) 07/25/2030 07/25/2020, 09/07/2007 Hepatitis C Screening Completed 10/19/2014 Pneumococcal Vaccine: 65+ Years Completed 10/21/2015, 10/19/2014, [...] this encounter Medical Devices Implanted Type Area Scissors Sharpener Device Identifier Shelf Expiration Date Model / Serial / Lot 5.6cc, (Pk Of 4) 1in X 2in Mediuminfuse Bone Graft Kit Implanted:Qty: 1 on 01/25/2022 by Marshall Dupont MD at OR [facility] Bone N/A: Spine Lumbar Medtronic Sofamor Danek [id number] 02/10/2022 [id number] / [id number] / [id number] S 25mm X 100mm X 4mm, 10cc Vitoss Bioactive Foam Strip, Synthetic Bone Graft Substitute, Ambient Implanted:Qty: 1 on 01/25/2022 by Marshall Dupont MD at OR [facility] Graft N/A: Spine Lumbar JERAMIE [id number] 03/10/2024 0339-0935 / [id number] / [id number] Vitoss Bimodal Foam Pack Implanted:Qty: 1 on 01/25/2022 by Marshall Dupont MD at OR [facility] Graft N/A: Spine Lumbar JERAMIE [id number] 07/10/2023 9896-1766 / [id number] / [id number] 25mm X 100mm X 4mm, 10cc Vitoss Bioactive Foam Strip, Synthetic Bone Graft Substitute, Ambient Implanted:Qty: 1 on 01/25/2022 by Marshall Dupont MD at OR [facility] Graft N/A: Spine Lumbar JERAMIE [id number] 03/10/2024 4824-1327 / [id number] / [id number] Screw [place] Poly 06.5x50 Mm - [id number] Implanted:Qty: 8 on 01/25/2022 by Marshall Dupont MD at OR [facility] Screw N/A: Spine Lumbar [employer] INC 1079-2540 0 / / Set Screw Poly Atr [place] - [id number] Implanted:Qty: 8 on 01/25/2022 by Marshall Dupont MD at OR [facility] Screw N/A: Spine Lumbar JERAMIE : SPINE 3051-0437 1 / / Dbx 10cc 409602 - [id number] 0028 - [id number] Implanted:Qty: 1 on 01/25/2022 by Marshall Dupont MD at OR [facility] Tissue - Human N/A: Spine Lumbar MUSCULOSKELETAL TRANSPLANT FND [id number] 09/09/2023 [id number] / [id number] / LOT NA Lens Intraoc 19.5 - [id number] - [id number] Implanted:Qty: 1 on 07/26/2017 by Orion Hernandez MD at OR [facility] Left: Eye BAUSCH & LOMB 02/10/2022 [id number] / [id number] Lens Intraoc 19.5 - [id number] - [id number] Implanted:Qty: 1 on 08/16/2017 by Orion Hernandez MD at OR [facility] Right: Eye BAUSCH & LOMB 12/10/2021 [id number] / [id number] Cage Inter [id number] 12 Deg - [id number] Implanted:Qty: 1 on 01/25/2022 by Marshall Dupont MD at OR [facility] N/A: Spine Lumbar JERAMIE : SPINE 03/02/2024 58-1028-1 208K / / [id number] Cage Inter [id number] 12 Deg Implanted:Qty: 1 on 01/25/2022 by Marshall Dupont MD at OR [facility] N/A: Spine Lumbar JERAMIE : SPINE 09/21/2024 58-1028-1 210K / / [id number] Cage Inter [id number] 15 Deg Implanted:Qty: 1 on 01/25/2022 by Marshall Dupont MD at OR [facility] N/A: Spine Lumbar JERAMIE : SPINE 03/30/2024 58-1028-1 510K / / [id number] Rene Implanted:Qty: 2 on 01/25/2022 by Marshall Dupont MD at OR [facility] N/A: Spine Lumbar JERAMIE : SPINE [id number] 0 / / documented as of this [...] and were consensually agreed upon. Care Teams Well Logging Captain Relationship Specialty Start Date End Date Damon White III, MD [address] [facility] [place] [address] PCP - General 04/04/07 documented as of this encounter
--- NOTE | 2024-06-30 12:57 | Emergency Department Note ---
Impression & Plan Ischemic cerebrovascular accident (CVA) ED Provider Note NAME: NURA JOHNS AGE: 73 SEX: M : 1950 ARRIVES VIA: Walk-In INFORMANT: Patient, the patient's significant other ED PROVIDER(S): Manior Aceves DO CHIEF COMPLAINT: Strokelike symptoms HPI: The patient is a 73-year-old male who presented to the emergency department for an evaluation of strokelike symptoms. The patient presented with his significant other. She does provide most of the history. The patient presented to the emergency department for strokelike symptoms. The patient was last seen well yesterday at approximately 3 PM. He was going to work. He went shopping and then went to work. Reportedly he was very quiet work and works with his son who noticed he was not talking very much. He came home last evening and saw his significant other. At that time she also noticed he seemed "off "and would not talk very much. This morning she noticed he was having difficulty speaking but had trouble convincing him to come to the emergency department. ROS: See above HPI for pertinent positives & negatives. A total of 10 systems reviewed and were otherwise negative. PAST MEDICAL HISTORY: See Below PAST SURGICAL HISTORY: See Below FAMILY HISTORY: See Below SOCIAL HISTORY: See Below HOME MEDICATIONS: See Below ALLERGIES: See Below VITALS: See Below PHYSICAL EXAMINATION: GENERAL: The patient is awake and alert. The patient appears anxious. EYES: The conjunctivae are clear. The pupils are round and reactive. EARS, NOSE, MOUTH AND THROAT: The nose is without any evidence of any deformity. NECK: The neck is nontender and supple. RESPIRATORY: Normal respiratory effort is noted there is no evidence of wheezing rhonchi or rales CARDIOVASCULAR: Regular rate and rhythm noted there no murmurs rubs or gallops normal S1 normal S2. GASTROINTESTINAL: The abdomen is soft. Abdomen is nontender. MUSCULOSKELETAL/EXTREMITIES: There is no evidence of gross deformity full range of motion is noted in the hips and shoulders. SKIN: There is no obvious evidence of any rash. There are no petechiae, pallor or cyanosis noted. NEUROLOGIC: Patient is awake alert and oriented to person place and situation. Strength was symmetric. 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 There is no facial droop. The patient appears to have an expressive aphasia. He is having word finding. His speech is clear. MEDICAL DECISION MAKING: The patient is a 73-year-old male who presented to the emergency department for an evaluation of strokelike symptoms. The patient was within 24 hours of the onset of symptoms although the last known well time was not clear initially. He was made a stroke alert. I discussed his initial presentation with the stroke neurologist from [facility]. The patient was not a candidate for TNK as he presented greater than 4-1/2 hours after the onset of symptoms. He does not appear to have a large vessel occlusion but does appear to have an age- indeterminate left frontal lobe ischemic infarct. The patient was reevaluated multiple times. Blood pressure was reassuring. I discussed his condition with the on-call [facility]. They have agreed to evaluate the patient in the emergency department for further management and disposition. Triage Nursing notes reviewed. Prior medical records reviewed Vital Signs: reviewed and remarkable for no significant abnormalities Differential diagnosis: Infection, dehydration, metabolic abnormality, hypo/hyperglycemia, electrolyte disturbance, anemia, hypoxia, cardiac sources, intracerebral event, toxicologic, neurologic, as well as other pathologies. ER treatment provided: See below Diagnostics interpreted by me: ECG: EKG was obtained in the emergency department. My interpretation is sinus rhythm at 66 bpm. Underlying right bundle branch block pattern was noted. P VCs were noted. Nonspecific ST abnormalities were noted. Cardiac Monitoring: An order was placed for continuous cardiac monitoring. The monitor shows a rate of 64 bpm with sinus rhythm. Laboratory studies: As stated above and show below. Imaging studies: See below. Radiographic imaging was reviewed by myself Consultation(s): I discussed this case with Dr. Hendrix who is on-call for telestroke. I discussed this case with Dr. Nair who is on-call for the [facility]. ED COURSE: Procedures: none Critical Care: I have personally spent greater than 45 minutes of critical care time in the direct management of this patient. This includes bedside care, interpretation of diagnostic studies, and testing, discussion with consultants, patient, and family members, and other required patient management activities. This 45 minutes is in excess of all separately billable procedures. Past Med/Surg History Problem List (Updated 06/30/24 @ 18:03 by Mainor Aceves DO) Ischemic cerebrovascular accident (CVA) (Acute) Stroke Calcific tendinitis of left shoulder Medical History (Updated 06/30/24 @ 18:03 by Mainor Aceves DO) BPH (benign prostatic hyperplasia) HTN (hypertension) CAD (coronary artery disease) Surgical History (Updated 06/30/24 @ 15:50 by Seble Nair MD) History of cataract removal with insertion of prosthetic lens Status post lumbar spine surgery for decompression of spinal cord H/O transurethral resection of prostate Social History (Updated 06/30/24 @ 15:47 by Seble Nair MD) Smoking Status: Never smoker Tobacco Type: Cigarettes Age Quit Using Tobacco: 39; Smoking End Date: 2006; Second Hand Exposure: No; Tobacco Cessation Education Requested by Patient: No Hx Alcohol Use: Yes Alcohol type: beer Alcohol Intake Frequency: 2-3 x/Week Hx Substance Use: No Preferred Language: Yoruba 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 Beliefs That Will Affect Care: None Current Living Situation: Spouse Other Information That Helps Us Care for You: No Feels Safe at Home: Yes Safety Concerns: Feels Safe At This Time Assistive Devices: Glasses and Hearing Aid - Bilateral Allergies Allergies Allergy/AdvReac Type Severity Reaction Status Date / Time No Known Allergies Allergy Mild Unverified 09/10/20 14:38 Home Meds Home Medications Medication Instructions Recorded Confirmed chlorthalidone 25 mg tablet 12.5 mg PO DAILY 09/10/20 06/30/24 metoprolol succinate 50 mg 50 mg PO BID 09/10/20 06/30/24 tablet,extended release 24 hr rosuvastatin 40 mg tablet 40 mg PO DAILY 09/10/20 06/30/24 aspirin 81 mg capsule 81 mg PO DAILY 06/30/24 06/30/24 ezetimibe 10 mg tablet 10 mg PO DAILY 06/30/24 06/30/24 losartan 100 mg tablet 100 mg PO DAILY 06/30/24 06/30/24 nitroglycerin 0.4 mg sublingual 0.4 mg sublingual Q4H PRN Angina 06/30/24 06/30/24 tablet pantoprazole 20 mg tablet,delayed 20 mg PO DAILY 06/30/24 06/30/24 release sildenafil (pulm.hypertension) 20 20 mg PO DAILY PRN Erectile 06/30/24 06/30/24 mg tablet (Revatio) Dysfunction solifenacin 10 mg tablet 10 mg PO DAILY 06/30/24 06/30/24 Results & Data (ED) Vital Signs Vital Signs - 24 hr 06/30/24 12:32 06/30/24 12:58 06/30/24 13:07 Temperature 36.3 C L Temperature Source Temporal Artery Scan Pulse Rate 62 Pulse Rate from SpO2 Sensor Pulse Strength Normal Respiratory Rate 19 18 Respiratory Effort / Characteristics Non-Labored Spontaneous Respiratory Depth Normal Respiratory Pattern Regular Blood Pressure 109/67 127/78 Blood Pressure Mean 81 97 Blood Pressure Position Sitting Pulse Oximetry 96 Oxygen Delivery Method Room Air Sepsis Recent Fever Within 48 Hours No Sepsis New/Unexplained Change in Mental Status No Sepsis Action Taken by Nursing No Action Required 06/30/24 13:09 06/30/24 13:11 06/30/24 13:11 Temperature Temperature Source Pulse Rate 66 Pulse Rate from SpO2 Sensor 67 Pulse Strength Respiratory Rate 15 Respiratory Effort / Characteristics Respiratory Depth Respiratory Pattern Blood Pressure 132/88 132/88 Blood Pressure Mean 100 100 Blood Pressure Position Pulse Oximetry 96 Oxygen Delivery Method Sepsis Recent Fever Within 48 Hours Sepsis New/Unexplained Change in Mental Status Sepsis Action Taken by Nursing 06/30/24 13:12 06/30/24 13:15 06/30/24 13:15 Temperature Temperature Source Pulse Rate 69 Pulse Rate from SpO2 Sensor 68 Pulse Strength Respiratory Rate 15 Respiratory Effort / Characteristics Respiratory Depth Respiratory Pattern Blood Pressure 120/76 120/76 Blood Pressure Mean 86 86 Blood Pressure Position Pulse Oximetry 94 Oxygen Delivery Method Sepsis Recent Fever Within 48 Hours Sepsis New/Unexplained Change in Mental Status Sepsis Action Taken by Nursing 06/30/24 13:21 06/30/24 13:30 06/30/24 13:42 Temperature Temperature Source Pulse Rate 67 62 Pulse Rate from SpO2 Sensor 60 Pulse Strength Respiratory Rate 13 19 Respiratory Effort / Characteristics Respiratory Depth Respiratory Pattern Blood Pressure 134/86 Blood Pressure Mean 110 Blood Pressure Position Pulse Oximetry 95 92 Oxygen Delivery Method Sepsis Recent Fever Within 48 Hours Sepsis New/Unexplained Change in Mental Status Sepsis Action Taken by Nursing 06/30/24 13:45 06/30/24 13:45 Temperature Temperature Source Pulse Rate Pulse Rate from SpO2 Sensor Pulse Strength Respiratory Rate Respiratory Effort / Characteristics Respiratory Depth Respiratory Pattern Blood Pressure 133/92 133/92 Blood Pressure Mean 103 103 Blood Pressure Position Pulse Oximetry Oxygen Delivery Method Sepsis Recent Fever Within 48 Hours Sepsis New/Unexplained Change in Mental Status Sepsis Action Taken by [facility] Medications Current Medication List: was personally reviewed by me Laboratory Data Attestation: I reviewed the patient's lab results. 06/30/24 12:57 06/30/24 15:09 Lab Results 06/30/24 06/30/24 06/30/24 Range/Units 12:55 12:57 13:55 WBC 8.42 (4.8-10.8) K/ul RBC 4.64 L (4.70-6.10) M/uL Hgb 14.5 (14.0-18.0) g/dl POC Hgb 15.3 (14.0-18.0) g/dl Hct 42.3 (42.0-52.0) % POC Hct 45 (42-52) % MCV 91.2 (80.0-100.0) fL MCH 31.3 (25.0-34.0) pg MCHC 34.3 (32.0-36.0) g/dL RDW Std Deviation 40.3 (36.4-46.3) fL RDW Coeff of Pascale 12.2 (11.5-14.5) % Plt Count 230 (130-400) K/uL MPV 11.4 (9.4-12.4) fL Immature Gran % (Auto) 0.2 % Neut % (Auto) 66.3 % Lymph % (Auto) 18.5 % [place] % (Auto) 12.1 % Eos % (Auto) 2.3 % Baso % (Auto) 0.6 % Neut # (Auto) 5.58 (1.40-6.50) K/uL Lymph # (Auto) 1.56 (1.20-3.40) K/uL [place] # (Auto) 1.02 H (0.11-0.59) K/uL Eos # (Auto) 0.19 (0.00-0.50) K/uL Baso # (Auto) 0.05 (0.00-0.20) K/uL Immature Gran # (Auto) 0.02 (0.01-0.20) K/uL PT 11.7 (9.0-12.0) Seconds INR 1.1 (0.9-1.1) APTT 23 (21-31) Seconds PTT Ratio 0.9 POC Sodium 137 (135-144) mmol/L Sodium 136 (136-145) mmol/L POC Potassium 4.6 (3.3-5.0) mmol/L Potassium 4.5 (3.5-5.1) mmol/L POC Chloride 98 L (101-112) mmol/L Chloride 99 (98-107) mmol/L Carbon Dioxide 30 (21-32) mmol/L POC Total CO2 27 (24-31) mmol/L Anion Gap 7 (3-11) POC Anion Gap 18.0 (16-25) mmol/L POC BUN 11 (7-18) mg/dl BUN 12 (6-23) mg/dl Creatinine 0.91 (0.6-1.4) mg/dl POC Creatinine 1.0 (0.6-1.3) mg/dl Est Cr Clr Drug Dosing 80.5 ml/min eGFR 88.44 BUN/Creatinine Ratio 13.2 (10-20) Glucose 109 H (70-99(Fasting)) mg/dl POC Glucose (other) 107 H (70-99) mg/dl Calcium 9.7 (8.6-10.3) mg/dl POC Ioniz Calcium Priti 1.14 (1.12-1.32) mmol/l Magnesium 1.9 (1.7-2.4) mg/dl Total Bilirubin 1.0 (0.2-1.0) mg/dl AST 25 (13-39) U/L ALT 17 (7-52) U/L Alkaline Phosphatase 55 (34-104) U/L Troponin I High Sens 16.6 (0-20) pg/ml Total Protein 8.0 (6.0-8.3) gm/dl Albumin 4.6 (3.4-5.0) gm/dl Globulin 3.4 (2.5-4.0) gm/dl Albumin/Globulin Ratio 1.4 (0.9-2) Vitamin B12 347 (180-914) pg/ml Folate 15.59 (>5.38) ng/ml Urine Color Yellow Urine Appearance Clear (Clear) Urine pH 6.5 (4.5-7.5) Ur Specific [place] 1.028 (1.000-1.030) Urine Protein Negative (Negative) Urine Glucose (UA) Negative (Negative) Urine Ketones Negative (Negative) Urine Blood Negative (Negative) Urine Nitrite Negative (Negative) Urine Bilirubin Negative (Negative) Urine Urobilinogen Negative (Negative) Ur Leukocyte Esterase Negative (Negative) Administered Medications Rosuvastatin Calcium (Rosuvastatin Calcium 20 Mg Tab) [facility] Stop: 07/30/24 15:59 Last Admin: 06/30/24 17:02 Dose: Not Given Documented By: URBAN Discontinued Medications Aspirin (Aspirin 81 Mg Ectab) 81 mg PO NOW STA Stop: 06/30/24 14:09 Last Admin: 06/30/24 16:13 Dose: 81 mg Documented By: URBAN Clopidogrel Bisulfate (Clopidogrel Bisulfate 75 Mg Tab) 75 mg PO NOW ONE Stop: 06/30/24 14:09 Last Admin: 06/30/24 16:13 Dose: 75 mg Documented By: URBAN Ioversol (Optiray 320 125ml) 112 ml IV ONCE ONE Stop: 06/30/24 13:06 Last Admin: 06/30/24 13:05 Dose: 112 ml Documented By: MYRNA Imaging Data Attestation: I personally reviewed and interpreted this imaging study as follows: My Impression: CT brain was obtained in the emergency department. My interpretation is changes in the left frontal lobe that could be consistent with a subacute ischemic infarct, there is no definite hemorrhage, final report below. 1 view chest x-ray was obtained in the emergency department. My interpretation is no free air or definite infiltrate, final report below. Radiologist's Impression: Chest X-Ray 06/30/24 12:40 EXAM: Radiograph of the Chest 1 View INDICATION: Unspecified neurologic deficit TECHNIQUE: Frontal view of the chest. COMPARISON: No relevant prior studies available. FINDINGS: Lungs and pleural spaces: No consolidation or pulmonary edema. No pleural effusion or pneumothorax. Heart: Shape and configuration within normal limits allowing for technique. Mediastinum: Normal contour. Bones/joints: No fracture, erosion or dislocation. Soft tissues: No abnormality noted. No radiopaque foreign body noted. Upper abdomen: No abnormality noted. IMPRESSION: No abnormality noted. ACT 112: Negative or not required by law. Electronically signed by Babs Garcia 06-30-2024 2:[address] 06/30/24 12:40 EXAM: CT Head Without Intravenous Contrast INDICATION: Unspecified neurologic deficit TECHNIQUE: Axial computed tomography images of the head/brain without intravenous contrast. Sagittal and/or coronal reformats are provided. Sagittal and coronal reformatted images were created and reviewed. This CT exam was performed using one or more of the following dose reduction techniques: automated exposure control, adjustment of the mA and/or kV according to patient size, and/or use of iterative reconstruction technique. COMPARISON: No relevant prior studies available. FINDINGS: Limitations: None. Brain and extra-axial spaces: There is age appropriate cortical atrophy and chronic ischemic periventricular white matter hypodensity. No acute infarct, hemorrhage or mass noted. There is asymmetric hypodensity in the left frontal lobe typical of the subacute to chronic infarct. No mass effect or shift. Bones/joints: No acute changes. Soft tissues: No significant abnormality noted. Vasculature: Atherosclerosis of the intracranial right vertebral and bilateral carotid arteries. Sinuses: No layering fluid in the visualized portions of the paranasal sinuses. Mastoid air cells: No mastoid effusion. Orbits: No significant abnormality noted. 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 ACT 112: Negative or not required by law. Electronically signed by Babs Garcia 06-30-2024 13:25 PM Head CTA 06/30/24 12:40 EXAM: CT Angiography Head and Neck With Intravenous Contrast INDICATION: Unspecified neurologic deficit TECHNIQUE: [place]/head and neck CT angiography protocol performed with intravenous contrast. Sagittal and coronal reformatted images were created and reviewed. This CT exam was performed using one or more of the following dose reduction techniques: automated exposure control, adjustment of the mA and/or kV according to patient size, and/or use of iterative reconstruction technique. MIP reconstructed images were created and reviewed. CONTRAST: 112ml of Optiray 320 was administered intravenously. COMPARISON: None. FINDINGS: HEAD: Right anterior cerebral artery: No abnormality noted. No occlusion or significant stenosis. Anterior communicating artery is present. No aneurysm. Right middle cerebral artery: No abnormality noted. No occlusion or significant stenosis. No aneurysm. Right posterior cerebral artery: No abnormality noted. No occlusion or significant stenosis. No aneurysm. Right intracranial internal carotid artery: No abnormality noted. No significant stenosis. No dissection or occlusion. Right intracranial vertebral artery: There is atherosclerosis of the intracranial right vertebral artery without stenosis. No dissection. Left anterior cerebral artery: No abnormality noted. No occlusion or significant stenosis. No aneurysm. Left middle cerebral artery: No abnormality noted. No occlusion or significant stenosis. No aneurysm. Left posterior cerebral artery: No abnormality noted. No occlusion or significant stenosis. No aneurysm. Left intracranial internal carotid artery: No abnormality noted. No significant stenosis. No dissection or occlusion. Left intracranial vertebral artery: Small left intracranial vertebral artery with calcification and high-grade stenosis if not occlusion. There is reconstitution of the distal intracranial vertebral artery. Basilar artery: No abnormality noted. No occlusion or significant stenosis. No aneurysm. Other vasculature: Patent dural venous sinuses. Dominant right cervical vertebral artery with dense plaque at the origin causing approximately 50% stenosis. Diminutive left intracranial vertebral artery. No vascular malformation. NECK: Right common carotid artery: There is mild mixed plaque distal right common carotid artery without stenosis, aneurysm or dissection. Right extracranial internal carotid artery: Mild mixed plaque at the bulb. No significant stenosis. No dissection or occlusion. Right external carotid artery: No abnormality noted. No occlusion. Right extracranial vertebral artery: No abnormality noted. No significant stenosis. No dissection or occlusion. Left common carotid artery: There is mild calcific plaque of the proximal and distal left common carotid artery without stenosis, dissection or aneurysm. Left extracranial internal carotid artery: Mild mixed plaque at the bulb. No significant stenosis. No dissection or occlusion. Left external carotid artery: No abnormality noted. No occlusion. Left extracranial vertebral artery: No abnormality noted. No significant stenosis. No dissection or occlusion. Lung apices: No significant abnormality noted. HEAD and NECK: Bones/joints: No significant abnormality. Soft tissues: No abnormality noted. CAROTID STENOSIS REFERENCE USING NASCET CRITERIA: % ICA stenosis = (1 - narrowest ICA diameter/diameter of distal cervical ICA) x 100. Mild - <50% stenosis. Moderate - 50-69% stenosis. Severe - 70-94% stenosis. Near occlusion - 95-99% stenosis. Occluded - 100% stenosis. IMPRESSION: 1. No angiographic abnormality in the brain. 2. Dominant right cervical and intracranial vertebral artery. There is calcific plaque at the origin with up to 50% stenosis. 3. Diminutive left vertebral artery with high-grade stenosis if not occlusion of a short segment of the intracranial portion with reconstitution distally. 4. Less than 25% bilateral cervical internal carotid stenosis. ACT 112: Negative or not required by law. Electronically signed by Babs Garcia 06-30-2024 13:25 PM Neck CTA 06/30/24 12:40 EXAM: CT Angiography Head and Neck With Intravenous Contrast INDICATION: Unspecified neurologic deficit TECHNIQUE: [place]/head and neck CT angiography protocol performed with intravenous contrast. Sagittal and coronal reformatted images were created and reviewed. This CT exam was performed using one or more of the following dose reduction techniques: automated exposure control, adjustment of the mA and/or kV according to patient size, and/or use of iterative reconstruction technique. MIP reconstructed images were created and reviewed. CONTRAST: 112ml of Optiray 320 was administered intravenously. COMPARISON: None. FINDINGS: HEAD: Right anterior cerebral artery: No abnormality noted. No occlusion or significant stenosis. Anterior communicating artery is present. No aneurysm. Right middle cerebral artery: No abnormality noted. No occlusion or significant stenosis. No aneurysm. Right posterior cerebral artery: No abnormality noted. No occlusion or significant stenosis. No aneurysm. Right intracranial internal carotid artery: No abnormality noted. No significant stenosis. No dissection or occlusion. Right intracranial vertebral artery: There is atherosclerosis of the intracranial right vertebral artery without stenosis. No dissection. Left anterior cerebral artery: No abnormality noted. No occlusion or significant stenosis. No aneurysm. Left middle cerebral artery: No abnormality noted. No occlusion or significant stenosis. No aneurysm. Left posterior cerebral artery: No abnormality noted. No occlusion or significant stenosis. No aneurysm. Left intracranial internal carotid artery: No abnormality noted. No significant stenosis. No dissection or occlusion. Left intracranial vertebral artery: Small left intracranial vertebral artery with calcification and high-grade stenosis if not occlusion. There is reconstitution of the distal intracranial vertebral artery. Basilar artery: No abnormality noted. No occlusion or significant stenosis. No aneurysm. Other vasculature: Patent dural venous sinuses. Dominant right cervical vertebral artery with dense plaque at the origin causing approximately 50% stenosis. Diminutive left intracranial vertebral artery. No vascular malformation. NECK: Right common carotid artery: There is mild mixed plaque distal right common carotid artery without stenosis, aneurysm or dissection. Right extracranial internal carotid artery: Mild mixed plaque at the bulb. No significant stenosis. No dissection or occlusion. Right external carotid artery: No abnormality noted. No occlusion. Right extracranial vertebral artery: No abnormality noted. No significant stenosis. No dissection or occlusion. Left common carotid artery: There is mild calcific plaque of the proximal and distal left common carotid artery without stenosis, dissection or aneurysm. Left extracranial internal carotid artery: Mild mixed plaque at the bulb. No significant stenosis. No dissection or occlusion. Left external carotid artery: No abnormality noted. No occlusion. Left extracranial vertebral artery: No abnormality noted. No significant stenosis. No dissection or occlusion. Lung apices: No significant abnormality noted. HEAD and NECK: Bones/joints: No significant abnormality. Soft tissues: No abnormality noted. CAROTID STENOSIS REFERENCE USING NASCET CRITERIA: % ICA stenosis = (1 - narrowest ICA diameter/diameter of distal cervical ICA) x 100. Mild - <50% stenosis. Moderate - 50-69% stenosis. Severe - 70-94% stenosis. Near occlusion - 95-99% stenosis. Occluded - 100% stenosis. IMPRESSION: 1. No angiographic abnormality in the brain. 2. Dominant right cervical and intracranial vertebral artery. There is calcific plaque at the origin with up to 50% stenosis. 3. Diminutive left vertebral artery with high-grade stenosis if not occlusion of a short segment of the intracranial portion with reconstitution distally. 4. Less than 25% bilateral cervical internal carotid stenosis. ACT 112: Negative or not required by law. Electronically signed by Babs Garcia 06-30-2024 13:25 PM Discharge Plan Visit Data Chief Complaint: TIA Symptoms Stated Complaint: LEG NUMBNESS, CONFUSION, SLOW SPEAKING ED Provider: Mainor Aceves Discharge Problem: Ischemic cerebrovascular accident (CVA) Patient Disposition: Admitted As Inpatient Discharge Instructions Interventions: ED Discharge Assessment Last Done: 06/30/24 14:38
[2024-06-30] MEDS: OPTIRAY 320 125ml IV ONE (13:05)
[2024-06-30 13:07] LABS: iSTAT Hemoglobin 15.3 g/dl (14.0-18.0); iSTAT Ionized Calcium 1.14 mmol/l (1.12-1.32); iSTAT Potassium 4.6 mmol/L (3.3-5.0)
[2024-06-30 13:23] LABS: Albumin Globulin Ratio 1.4 (0.9-2); Albumin Level 4.6 gm/dl (3.4-5.0); BUN Creatinine Ratio 13.2 (10-20); Calcium 9.7 mg/dl (8.6-10.3); Creatinine Clr Calc Pharmacy 80.5 ml/min; Globulin 3.4 gm/dl (2.5-4.0); Magnesium 1.9 mg/dl (1.7-2.4); Potassium 4.5 mmol/L (3.5-5.1)
[2024-06-30 13:25] LABS: Hematocrit (blood only) 42.3 % (42.0-52.0); Hemoglobin 14.5 g/dl (14.0-18.0); Mean Corpuscular Hemoglobin 31.3 pg (25.0-34.0); Mean Corpuscular Hgb Conc 34.3 g/dL (32.0-36.0); Mean Corpuscular Volume 91.2 fL (80.0-100.0); RDW Coefficient of Variation 12.2 % (11.5-14.5); RDW Standard Deviation 40.3 fL (36.4-46.3); Red Blood Count 4.64 M/uL (4.70-6.10); White Blood Count 8.42 K/ul (4.8-10.8)
--- NOTE | 2024-06-30 13:26 | CT Scan Report ---
EXAM: CT Head Without Intravenous Contrast INDICATION: Unspecified neurologic deficit TECHNIQUE: Axial computed tomography images of the head/brain without intravenous contrast. Sagittal and/or coronal reformats are provided. Sagittal and coronal reformatted images were created and reviewed. This CT exam was performed using one or more of the following dose reduction techniques: automated exposure control, adjustment of the mA and/or kV according to patient size, and/or use of iterative reconstruction technique. COMPARISON: No relevant prior studies available. FINDINGS: Limitations: None. Brain and extra-axial spaces: There is age appropriate cortical atrophy and chronic ischemic periventricular white matter hypodensity. No acute infarct, hemorrhage or mass noted. There is asymmetric hypodensity in the left frontal lobe typical of the subacute to chronic infarct. No mass effect or shift. Bones/joints: No acute changes. Soft tissues: No significant abnormality noted. Vasculature: Atherosclerosis of the intracranial right vertebral and bilateral carotid arteries. Sinuses: No layering fluid in the visualized portions of the paranasal sinuses. Mastoid air cells: No mastoid effusion. Orbits: No significant abnormality noted. 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 ACT 112: Negative or not required by law. Electronically signed by Babs Garcia 06-30-2024 13:25 PM
--- NOTE | 2024-06-30 13:28 | CT Scan Report ---
EXAM: CT Angiography Head and Neck With Intravenous Contrast INDICATION: Unspecified neurologic deficit TECHNIQUE: [place]/head and neck CT angiography protocol performed with intravenous contrast. Sagittal and coronal reformatted images were created and reviewed. This CT exam was performed using one or more of the following dose reduction techniques: automated exposure control, adjustment of the mA and/or kV according to patient size, and/or use of iterative reconstruction technique. MIP reconstructed images were created and reviewed. CONTRAST: 112ml of Optiray 320 was administered intravenously. COMPARISON: None. FINDINGS: HEAD: Right anterior cerebral artery: No abnormality noted. No occlusion or significant stenosis. Anterior communicating artery is present. No aneurysm. Right middle cerebral artery: No abnormality noted. No occlusion or significant stenosis. No aneurysm. Right posterior cerebral artery: No abnormality noted. No occlusion or significant stenosis. No aneurysm. Right intracranial internal carotid artery: No abnormality noted. No significant stenosis. No dissection or occlusion. Right intracranial vertebral artery: There is atherosclerosis of the intracranial right vertebral artery without stenosis. No dissection. Left anterior cerebral artery: No abnormality noted. No occlusion or significant stenosis. No aneurysm. Left middle cerebral artery: No abnormality noted. No occlusion or significant stenosis. No aneurysm. Left posterior cerebral artery: No abnormality noted. No occlusion or significant stenosis. No aneurysm. Left intracranial internal carotid artery: No abnormality noted. No significant stenosis. No dissection or occlusion. Left intracranial vertebral artery: Small left intracranial vertebral artery with calcification and high-grade stenosis if not occlusion. There is reconstitution of the distal intracranial vertebral artery. Basilar artery: No abnormality noted. No occlusion or significant stenosis. No aneurysm. Other vasculature: Patent dural venous sinuses. Dominant right cervical vertebral artery with dense plaque at the origin causing approximately 50% stenosis. Diminutive left intracranial vertebral artery. No vascular malformation. NECK: Right common carotid artery: There is mild mixed plaque distal right common carotid artery without stenosis, aneurysm or dissection. Right extracranial internal carotid artery: Mild mixed plaque at the bulb. No significant stenosis. No dissection or occlusion. Right external carotid artery: No abnormality noted. No occlusion. Right extracranial vertebral artery: No abnormality noted. No significant stenosis. No dissection or occlusion. Left common carotid artery: There is mild calcific plaque of the proximal and distal left common carotid artery without stenosis, dissection or aneurysm. Left extracranial internal carotid artery: Mild mixed plaque at the bulb. No significant stenosis. No dissection or occlusion. Left external carotid artery: No abnormality noted. No occlusion. Left extracranial vertebral artery: No abnormality noted. No significant stenosis. No dissection or occlusion. Lung apices: No significant abnormality noted. HEAD and NECK: Bones/joints: No significant abnormality. Soft tissues: No abnormality noted. CAROTID STENOSIS REFERENCE USING NASCET CRITERIA: % ICA stenosis = (1 - narrowest ICA diameter/diameter of distal cervical ICA) x 100. Mild - <50% stenosis. Moderate - 50-69% stenosis. Severe - 70-94% stenosis. Near occlusion - 95-99% stenosis. Occluded - 100% stenosis. IMPRESSION: 1. No angiographic abnormality in the brain. 2. Dominant right cervical and intracranial vertebral artery. There is calcific plaque at the origin with up to 50% stenosis. 3. Diminutive left vertebral artery with high-grade stenosis if not occlusion of a short segment of the intracranial portion with reconstitution distally. 4. Less than 25% bilateral cervical internal carotid stenosis. ACT 112: Negative or not required by law. Electronically signed by Babs Garcia 06-30-2024 13:25 PM
[2024-06-30 13:29] LABS: Troponin I High Sensitivity 16.6 pg/ml (0-20)
[2024-06-30 13:32] LABS: Basophils # (auto) 0.05 K/uL (0.00-0.20); Basophils % (auto) 0.6 %; Eosinophils # (auto) 0.19 K/uL (0.00-0.50); Eosinophils % (auto) 2.3 %; Immature Granulocytes # (auto) 0.02 K/uL (0.01-0.20); Immature Granulocytes % (auto) 0.2 %; Lymphocytes # (auto) 1.56 K/uL (1.20-3.40); Lymphocytes % (auto) 18.5 %; Mean Platelet Volume 11.4 fL (9.4-12.4); Monocytes # (auto) 1.02 K/uL (0.11-0.59); Monocytes % (auto) 12.1 %; Neutrophils # (auto) 5.58 K/uL (1.40-6.50); Neutrophils % (auto) 66.3 %; Platelet Count 230 K/uL (130-400)
[2024-06-30 13:41] LABS: INR 1.1 (0.9-1.1); Partial Thromboplastin Ratio 0.9; Partial Thromboplastin Time 23 Seconds (21-31); Prothrombin Time 11.7 Seconds (9.0-12.0)
--- NOTE | 2024-06-30 13:52 | History & Physical Report ---
Date of Service June 30, 2024 Assessment & Plan (1) Stroke: (2) CAD (coronary artery disease): (3) HTN (hypertension): (4) BPH (benign prostatic hyperplasia): (5) H/O transurethral resection of prostate: (6) Status post lumbar spine surgery for decompression of spinal cord: Plan Mr. Roe is a 73 year old gentleman with past medical history remarkable for CAD, prior ND, PVCs, HTN, BPH, HLD who presented to [facility] due to strokelike symptoms and found to have left subacute frontal infarct. Notable symptoms per /patient is disengaged/flat affect and "shuffle" sensation to gait. #Subacute to chronic left frontal nonhemorrhagic infarct without mass effect. CTA Head Neck: Dominant right cervical and intracranial vertebral artery. There is calcific plaque at the origin with up to 50% stenosis. Subacute to chronic left frontal nonhemorrhagic infarct without mass effect. 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 continue home losartan Resume chlorthalidone as tolerate continue metoprolol BID continue statin/asa #HLD continue rosuvastatin plus Zetia #Asymptomatic PVCs # RBBB / LAFB continue metoprolol BID monitor on telle #BPH previoulsy on other agents with no improvement, follows Urology Solifenacin provided Sep 2022 with mild improvement Resume as able #s/p lumbar decompression 2021 reported intermittent gait abnormality 2/2 back pain PT/OT as above DVT ppx: SCD for now Admit to PCU for post stroke monitoring/neuro checks Full Code Admission and Anticipated Discharge Date Admission Date: Time spent evaluating patient, direct bedside care, chart review, placing orders, interpretation of diagnostic studies, discussion with consultants, patient, and family members, as well as other required patient management activities is 75 minutes. History of Present Illness Chief Complaint: Strokelike symptoms Primary Care Provider: Duglas Philippe MD Mr. Roe is a 73 year old gentleman with past medical history remarkable for CAD, prior ND, PVCs, HTN, BPH, HLD who presented to [facility] ED due to strokelike symptoms. present at bedside. Patient states that yesterday around 230-3pm he was feeling fine in [employer], until suddenly his sensation of walking felt more like he was shuffling. He states this differs from his routine gait abnormality from his back pain as he underwent lumbar decompression in 2021 and residual "pain flares." He drove himself to work, where friends/son noted that patient was not engaging in activities like he routinely does. states that she was not around him until late in the evening and noted he was still "off" this morning. Patient denies any lateralizing symptoms, noting the perception was in both legs. No facial drop, dysphagia, vertiginous symptoms reports. Patient did not fall and no reported vision disturbance. In the ED, vitals were notable for BP of 109-130s, HR of 60s, and O2 sat of mid- high 90s on RA, afebrile Imaging revealed subacute to chronic left frontal nonhemorrhagic infarct without mass effect. EKG PACs/PVCs, RBBB review of prior EKG as OP noted Sinus rhythm with frequent PVCs, right bundle branch block, left anterior fascicular block. No change compared to prior ECG. ED interventions: none Consultants: ED reportedly discussed with Dina, not candidate for thrombolytics or other interventions at this time Patient to be admitted to PCU for further evaluation and management of left frontal stroke Allergies Allergy/AdvReac Type Severity Reaction Status Date / Time No Known Allergies Allergy Mild Unverified 09/10/20 14:38 Home Medications Medication Instructions Recorded Confirmed Type chlorthalidone 25 mg tablet 12.5 mg PO DAILY 09/10/20 06/30/24 History metoprolol succinate 50 mg 50 mg PO BID 09/10/20 06/30/24 History tablet,extended release 24 hr rosuvastatin 40 mg tablet 40 mg PO DAILY 09/10/20 06/30/24 History aspirin 81 mg capsule 81 mg PO DAILY 06/30/24 06/30/24 History ezetimibe 10 mg tablet 10 mg PO DAILY 06/30/24 06/30/24 History losartan 100 mg tablet 100 mg PO DAILY 06/30/24 06/30/24 History nitroglycerin 0.4 mg sublingual 0.4 mg sublingual Q4H PRN Angina 06/30/24 06/30/24 History tablet pantoprazole 20 mg tablet,delayed 20 mg PO DAILY 06/30/24 06/30/24 History release sildenafil (pulm.hypertension) 20 20 mg PO DAILY PRN Erectile 06/30/24 06/30/24 History mg tablet (Revatio) Dysfunction solifenacin 10 mg tablet 10 mg PO DAILY 06/30/24 06/30/24 History Past Med/Surg History Problem List (Updated 06/30/24 @ 15:48 by Seble Nair MD) Stroke Calcific tendinitis of left shoulder Medical History (Updated 06/30/24 @ 15:48 by Seble Nair MD) BPH (benign prostatic hyperplasia) HTN (hypertension) CAD (coronary artery disease) Surgical History (Updated 06/30/24 @ 15:50 by Seble Nair MD) History of cataract removal with insertion of prosthetic lens Status post lumbar spine surgery for decompression of spinal cord H/O transurethral resection of prostate Social History (Updated 06/30/24 @ 15:47 by Seble Nair MD) Smoking Status: Never smoker Tobacco Type: Cigarettes Age Quit Using Tobacco: 39; Second Hand Exposure: No; Hx Alcohol Use: Yes Alcohol type: beer Alcohol Intake Frequency: 2-3 x/Week Hx Substance Use: No Preferred Language: [place] [employer] [employer] Assistant Required: No Beliefs That Will Affect Care: None Current Living Situation: Spouse Feels Safe at Home: Yes Assistive Devices: Glasses and Hearing Aid - Bilateral Review of Systems Review of Systems: Constitutional: (-) fever/chills, (-) recent loss of weight, (-) appetite changes, (-) night sweats. Head: (-) headache, (-) dizziness. Eye: (-) blurring of vision, (-) double vision, (-) redness. Ear: (-) hearing loss, (-) discharge, (-) vertigo Nose: (-) discharge, (-) bleeding, (-) congestion, (-) post nasal drip. Throat: (-) sore throat, (-) hoarseness of voice, (-) odynophagia. Cardiovascular: (-) chest pain, (-) palpitations, (-) syncope, (-) orthopnea, (- ) PND, (-) leg swelling. Respiratory: (-) shortness of breath, (-) cough, (-) wheezing, (-) hemoptysis. Neuro: (+) weakness in lower extremities, (-) numbness, (-) tingling, (-) tremor. Gastrointestinal: (-) belly pain, (-) belly distension, (-) nausea, (-) vomiting, (-) diarrhea, (-) constipation Genitourinary: (-) hematuria, (-) dysuria, (-) polyuria, +) hesitancy chronic (- ) frequency, (-) urinary incontinence. Musculoskeletal: (-) myalgia, (-) arthralgia. Skin: (-) rashes. Endocrine: (-) heat/cold intolerance. Psychiatry: (-) depression, (-) hallucination. Physical Exam Physical Exam: GENERAL APPEARANCE: AxOx4, flat affect HEENT: NC, AT. MMM. EOMI, clear conjunctiva, oropharynx clear. recent tooth loss right upper canine, gingiva without erythema or signs of infection NECK: Supple without lymphadenopathy. No stiffness or restricted ROM. HEART: Normal rate and regular rhythm, normal S1/S1, no m/r/g LUNGS: CTAB, moving air well. No crackles or wheezes are heard. ABDOMEN: Soft, nontender, nondistended with good bowel sounds heard. BACK: No CVAT, no obvious deformity. EXTREMITIES: Without cyanosis, clubbing or edema. NEUROLOGICAL: Grossly nonfocal. Alert and oriented, moving all 4 extremities. CNII-XII intact, strength intact 5/5 BUE/BLE Skin: Warm and dry without any rash. Results & Data Results & Data Vital Signs (Past 12 Hours) Vital Signs Temp Pulse Resp BP Pulse Ox O2 Del Method 06/30/24 13:30 134/86 06/30/24 13:21 67 13 95 06/30/24 13:15 120/76 06/30/24 13:15 120/76 06/30/24 13:12 69 15 94 06/30/24 13:11 132/88 06/30/24 13:11 132/88 06/30/24 13:09 66 15 96 06/30/24 13:07 127/78 06/30/24 12:58 18 06/30/24 12:32 36.3 C L 62 19 109/67 96 Room Air Laboratory Results Short CBC 06/30/24 Range/Units 12:57 WBC 8.42 (4.8-10.8) K/ul Hgb 14.5 (14.0-18.0) g/dl Hct 42.3 (42.0-52.0) % Plt Count 230 (130-400) K/uL BMP 06/30/24 12:57 Sodium 136 Potassium 4.5 Chloride 99 Carbon Dioxide 30 BUN 12 Creatinine 0.91 Glucose 109 H Calcium 9.7 Liver Function 06/30/24 Range/Units 12:57 Total Bilirubin 1.0 (0.2-1.0) mg/dl AST 25 (13-39) U/L ALT 17 (7-52) U/L Alkaline Phosphatase 55 (34-104) U/L Albumin 4.6 (3.4-5.0) gm/dl Diagnostic Findings Head CT 06/30/24 12:40 EXAM: CT Head Without Intravenous Contrast INDICATION: Unspecified neurologic deficit TECHNIQUE: Axial computed tomography images of the head/brain without intravenous contrast. Sagittal and/or coronal reformats are provided. Sagittal and coronal reformatted images were created and reviewed. This CT exam was performed using one or more of the following dose reduction techniques: automated exposure control, adjustment of the mA and/or kV according to patient size, and/or use of iterative reconstruction technique. COMPARISON: No relevant prior studies available. FINDINGS: Limitations: None. Brain and extra-axial spaces: There is age appropriate cortical atrophy and chronic ischemic periventricular white matter hypodensity. No acute infarct, hemorrhage or mass noted. There is asymmetric hypodensity in the left frontal lobe typical of the subacute to chronic infarct. No mass effect or shift. Bones/joints: No acute changes. Soft tissues: No significant abnormality noted. Vasculature: Atherosclerosis of the intracranial right vertebral and bilateral carotid arteries. Sinuses: No layering fluid in the visualized portions of the paranasal sinuses. Mastoid air cells: No mastoid effusion. Orbits: No significant abnormality noted. 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 ACT 112: Negative or not required by law. Electronically signed by Babs Garcia 06-30-2024 13:25 PM Head CTA 06/30/24 12:40 EXAM: CT Angiography Head and Neck With Intravenous Contrast INDICATION: Unspecified neurologic deficit TECHNIQUE: [place]/head and neck CT angiography protocol performed with intravenous contrast. Sagittal and coronal reformatted images were created and reviewed. This CT exam was performed using one or more of the following dose reduction techniques: automated exposure control, adjustment of the mA and/or kV according to patient size, and/or use of iterative reconstruction technique. MIP reconstructed images were created and reviewed. CONTRAST: 112ml of Optiray 320 was administered intravenously. COMPARISON: None. FINDINGS: HEAD: Right anterior cerebral artery: No abnormality noted. No occlusion or significant stenosis. Anterior communicating artery is present. No aneurysm. Right middle cerebral artery: No abnormality noted. No occlusion or significant stenosis. No aneurysm. Right posterior cerebral artery: No abnormality noted. No occlusion or significant stenosis. No aneurysm. Right intracranial internal carotid artery: No abnormality noted. No significant stenosis. No dissection or occlusion. Right intracranial vertebral artery: There is atherosclerosis of the intracranial right vertebral artery without stenosis. No dissection. Left anterior cerebral artery: No abnormality noted. No occlusion or significant stenosis. No aneurysm. Left middle cerebral artery: No abnormality noted. No occlusion or significant stenosis. No aneurysm. Left posterior cerebral artery: No abnormality noted. No occlusion or significant stenosis. No aneurysm. Left intracranial internal carotid artery: No abnormality noted. No significant stenosis. No dissection or occlusion. Left intracranial vertebral artery: Small left intracranial vertebral artery with calcification and high-grade stenosis if not occlusion. There is reconstitution of the distal intracranial vertebral artery. Basilar artery: No abnormality noted. No occlusion or significant stenosis. No aneurysm. Other vasculature: Patent dural venous sinuses. Dominant right cervical vertebral artery with dense plaque at the origin causing approximately 50% stenosis. Diminutive left intracranial vertebral artery. No vascular malformation. NECK: Right common carotid artery: There is mild mixed plaque distal right common carotid artery without stenosis, aneurysm or dissection. Right extracranial internal carotid artery: Mild mixed plaque at the bulb. No significant stenosis. No dissection or occlusion. Right external carotid artery: No abnormality noted. No occlusion. Right extracranial vertebral artery: No abnormality noted. No significant stenosis. No dissection or occlusion. Left common carotid artery: There is mild calcific plaque of the proximal and distal left common carotid artery without stenosis, dissection or aneurysm. Left extracranial internal carotid artery: Mild mixed plaque at the bulb. No significant stenosis. No dissection or occlusion. Left external carotid artery: No abnormality noted. No occlusion. Left extracranial vertebral artery: No abnormality noted. No significant stenosis. No dissection or occlusion. Lung apices: No significant abnormality noted. HEAD and NECK: Bones/joints: No significant abnormality. Soft tissues: No abnormality noted. CAROTID STENOSIS REFERENCE USING NASCET CRITERIA: % ICA stenosis = (1 - narrowest ICA diameter/diameter of distal cervical ICA) x 100. Mild - <50% stenosis. Moderate - 50-69% stenosis. Severe - 70-94% stenosis. Near occlusion - 95-99% stenosis. Occluded - 100% stenosis. IMPRESSION: 1. No angiographic abnormality in the brain. 2. Dominant right cervical and intracranial vertebral artery. There is calcific plaque at the origin with up to 50% stenosis. 3. Diminutive left vertebral artery with high-grade stenosis if not occlusion of a short segment of the intracranial portion with reconstitution distally. 4. Less than 25% bilateral cervical internal carotid stenosis. ACT 112: Negative or not required by law. Electronically signed by Babs Garcia 06-30-2024 13:25 PM Neck CTA 06/30/24 12:40 EXAM: CT Angiography Head and Neck With Intravenous Contrast INDICATION: Unspecified neurologic deficit TECHNIQUE: [place]/head and neck CT angiography protocol performed with intravenous contrast. Sagittal and coronal reformatted images were created and reviewed. This CT exam was performed using one or more of the following dose reduction techniques: automated exposure control, adjustment of the mA and/or kV according to patient size, and/or use of iterative reconstruction technique. MIP reconstructed images were created and reviewed. CONTRAST: 112ml of Optiray 320 was administered intravenously. COMPARISON: None. FINDINGS: HEAD: Right anterior cerebral artery: No abnormality noted. No occlusion or significant stenosis. Anterior communicating artery is present. No aneurysm. Right middle cerebral artery: No abnormality noted. No occlusion or significant stenosis. No aneurysm. Right posterior cerebral artery: No abnormality noted. No occlusion or significant stenosis. No aneurysm. Right intracranial internal carotid artery: No abnormality noted. No significant stenosis. No dissection or occlusion. Right intracranial vertebral artery: There is atherosclerosis of the intracranial right vertebral artery without stenosis. No dissection. Left anterior cerebral artery: No abnormality noted. No occlusion or significant stenosis. No aneurysm. Left middle cerebral artery: No abnormality noted. No occlusion or significant stenosis. No aneurysm. Left posterior cerebral artery: No abnormality noted. No occlusion or significant stenosis. No aneurysm. Left intracranial internal carotid artery: No abnormality noted. No significant stenosis. No dissection or occlusion. Left intracranial vertebral artery: Small left intracranial vertebral artery with calcification and high-grade stenosis if not occlusion. There is reconstitution of the distal intracranial vertebral artery. Basilar artery: No abnormality noted. No occlusion or significant stenosis. No aneurysm. Other vasculature: Patent dural venous sinuses. Dominant right cervical vertebral artery with dense plaque at the origin causing approximately 50% stenosis. Diminutive left intracranial vertebral artery. No vascular malformation. NECK: Right common carotid artery: There is mild mixed plaque distal right common carotid artery without stenosis, aneurysm or dissection. Right extracranial internal carotid artery: Mild mixed plaque at the bulb. No significant stenosis. No dissection or occlusion. Right external carotid artery: No abnormality noted. No occlusion. Right extracranial vertebral artery: No abnormality noted. No significant stenosis. No dissection or occlusion. Left common carotid artery: There is mild calcific plaque of the proximal and distal left common carotid artery without stenosis, dissection or aneurysm. Left extracranial internal carotid artery: Mild mixed plaque at the bulb. No significant stenosis. No dissection or occlusion. Left external carotid artery: No abnormality noted. No occlusion. Left extracranial vertebral artery: No abnormality noted. No significant stenosis. No dissection or occlusion. Lung apices: No significant abnormality noted. HEAD and NECK: Bones/joints: No significant abnormality. Soft tissues: No abnormality noted. CAROTID STENOSIS REFERENCE USING NASCET CRITERIA: % ICA stenosis = (1 - narrowest ICA diameter/diameter of distal cervical ICA) x 100. Mild - <50% stenosis. Moderate - 50-69% stenosis. Severe - 70-94% stenosis. Near occlusion - 95-99% stenosis. Occluded - 100% stenosis. IMPRESSION: 1. No angiographic abnormality in the brain. 2. Dominant right cervical and intracranial vertebral artery. There is calcific plaque at the origin with up to 50% stenosis. 3. Diminutive left vertebral artery with high-grade stenosis if not occlusion of a short segment of the intracranial portion with reconstitution distally. 4. Less than 25% bilateral cervical internal carotid stenosis. ACT 112: Negative or not required by law. Electronically signed by Babs Garcia 06-30-2024 13:25 PM Prior imaging reviewed: Exercise stress echo report December 31, 2021: The stress echo is negative for inducible ischemia. Frequent PVCs were noted with stress. Moderate aortic valve sclerosis is present. Aortic stenosis is absent. The proximal ascending thoracic aorta is mildly enlarged , 4 cm. Compared to the report of the prior study dated 12/19/2018, the diameter of the proximal ascending aorta is stable without significant interval change. The patient exercised for 8 minutes on a standard Alex protocol in 2019 as compared to 5 minutes on the present study. Medications Administered Home Medications Medication Instructions Recorded Confirmed Last Taken chlorthalidone 25 mg tablet 12.5 mg PO DAILY 09/10/20 09/10/20 Unknown dutasteride 0.5 mg capsule 0.5 mg PO DAILY 09/10/20 09/10/20 Unknown metoprolol succinate 50 mg 50 mg PO BID 09/10/20 09/10/20 Unknown tablet,extended release 24 hr rosuvastatin 40 mg tablet 40 mg PO DAILY 09/10/20 09/10/20 Unknown
[2024-06-30 14:06] LABS: Appearance Urine Clear (Clear); Bilirubin Urine Negative (Negative); Blood Urine Negative (Negative); Color Urine Yellow; Glucose Urine UA Negative (Negative); Ketones Urine Negative (Negative); Leukocyte Esterase Urine Negative (Negative); Nitrite Urine Negative (Negative); Protein Urine Negative (Negative); Specific Gravity Urine 1.028 (1.000-1.030); Urobilinogen Urine Negative (Negative); pH Urine 6.5 (4.5-7.5)
--- NOTE | 2024-06-30 14:36 | XRay Report ---
EXAM: Radiograph of the Chest 1 View INDICATION: Unspecified neurologic deficit TECHNIQUE: Frontal view of the chest. COMPARISON: No relevant prior studies available. FINDINGS: Lungs and pleural spaces: No consolidation or pulmonary edema. No pleural effusion or pneumothorax. Heart: Shape and configuration within normal limits allowing for technique. Mediastinum: Normal contour. Bones/joints: No fracture, erosion or dislocation. Soft tissues: No abnormality noted. No radiopaque foreign body noted. Upper abdomen: No abnormality noted. IMPRESSION: No abnormality noted. ACT 112: Negative or not required by law. Electronically signed by Babs Garcia 06-30-2024 2:35 PM
[2024-06-30 15:05] LABS: Folate (Folic Acid),Ser orPlas 15.59 ng/ml (>5.38)
[2024-06-30] MEDS ORDERED: PHARMACIST DISCHARGE MED REC CONSULT PRN (15:19)
[2024-06-30] MEDS: ASPIRIN 81 MG ECTAB PO STA (16:13)
[2024-06-30] MEDS: CLOPIDOGREL BISULFATE 75 MG TAB PO ONE (16:13)
[2024-06-30 16:39] LABS: Calcium 9.1 mg/dl (8.6-10.3); Potassium 3.8 mmol/L (3.5-5.1)
[2024-06-30 16:45] LABS: BUN Creatinine Ratio 12.6 (10-20); Creatinine Clr Calc Pharmacy 93.1 ml/min
[2024-06-30] MEDS: ROSUVASTATIN CALCIUM 20 MG TAB PO SCH (17:02)
[2024-06-30] MEDS: METOPROLOL SUCC 50MG EXT REL TAB PO SCH (20:45)
[2024-07-01 07:17] LABS: Basophils # (auto) 0.04 K/uL (0.00-0.20); Basophils % (auto) 0.4 %; Eosinophils # (auto) 0.24 K/uL (0.00-0.50); Eosinophils % (auto) 2.7 %; Hematocrit (blood only) 40.1 % (42.0-52.0); Immature Granulocytes # (auto) 0.02 K/uL (0.01-0.20); Immature Granulocytes % (auto) 0.2 %; Lymphocytes # (auto) 1.55 K/uL (1.20-3.40); Lymphocytes % (auto) 17.1 %; Mean Corpuscular Hemoglobin 31.7 pg (25.0-34.0); Mean Corpuscular Hgb Conc 34.9 g/dL (32.0-36.0); Mean Corpuscular Volume 90.9 fL (80.0-100.0); Mean Platelet Volume 11.2 fL (9.4-12.4); Monocytes # (auto) 1.23 K/uL (0.11-0.59); Monocytes % (auto) 13.6 %; Neutrophils # (auto) 5.97 K/uL (1.40-6.50); Platelet Count 206 K/uL (130-400); Red Blood Count 4.41 M/uL (4.70-6.10); White Blood Count 9.05 K/ul (4.8-10.8)
--- NOTE | 2024-07-01 07:25 | Hospitalist Progress Note ---
Date of Service July 01, 2024 Assessment & Plan (1) Cerebrovascular accident (CVA): Nolan Roe is a 73y/o M with PMHx significant for CAD, prior ID in 2005 [1.5mm diagonal branch 100% occlusion; no intervention done], HTN, HLD, asymptomatic PVCs, RBBB/LAFB, prior alcohol use and BPH w/ persistent LUTS s/p TURP in 2020 who presented to the ED on 06/30/2024 for evaluation of strokelike symptoms and was found to have a subacute to chronic left frontal nonhemorrhagic infarct on admitting head CT. Pertinent events from this morning, 07/01: Around 9AM, patient was seen and examined at bedside. Witnessed him ambulating - baseline shuffling gait noted but he appeared steady on his feet. NAEO; NIH Stroke Scale 0 since yesterday afternoon around 1PM. No neurological deficits at the time of this evaluation. He has chronic BLE neuropathy. We discussed his head CT and head/neck CT findings from yesterday. He felt he was at his baseline functioning status at the time of this conversation. He was being transported down to imaging for brain MRI following our conversation at that time. Telemetry unremarkable thus far. However, around 9:30AM after the patient returned upstairs from MRI, he developed sudden-onset right-sided flaccidity and aphasia. Stroke alert was called. Upon reassessment, patient with notable word finding difficulty and right-sided weakness - completely changed from grossly unremarkable physical examination earlier around 9AM. Noted to be in NSR on telemetry, VSS. Patient was emergently sent downstairs for repeat imaging. Repeat head/neck CTA imaging grossly unchanged from prior. Brain MRI -> L frontal NATAN territory acute non-hemorrhagic infarction, small R frontal focus of abnormal signal intensity in the GWI (likely a sequel of an old hemorrhagic insult), microangiopathic ischemic changes with multiple cerebral/ganglionic/pontine/cerebellar chronic ischemic foci and involution brain changes. Patient was transitioned to the ICU following repeat imaging for evaluation by the [facility] TeleStroke neurologist, Dr. Hendrix. No indication for TNK; patient already on GDMT including rosuvastatin 40mg daily, ezetimibe 10mg daily, aspirin 81mg daily and Plavix 75mg daily. Patient's right-sided weakness and word finding difficulty resolved upon reexamination in the ICU with Dr. Teresa; he was A&Ox3. Patient was transitioned back upstairs to room [facility] around 10:30AM. His , Vero, arrived at bedside shortly before 11AM - she was updated regarding the repeat imaging and all of her questions were answered to her satisfaction. L Frontal NATAN Vascular Territory Infarction: Repeat Neck CTA -> Calcified plaque causing stenosis at the origin of the L vertebral artery, atherosclerotic plaque of the cervical internal carotid arteries. Repeat Head CTA -> Stable acute to subacute L frontal non hemorrhagic infarct w/o mass effect, high-grade stenosis of the distal half of the intracranial L vertebral artery. Brain MRI findings, discussion w/ TeleStroke neurologist as per above. No indication for TNK. Continue DAPT, rosuvastatin & ezetimibe. Holding home BP meds to allow for permissive HTN. Gentle IVF initiated. Current AHA/ASA guidelines recommend permissive HTN with a BP goal of < or = to 220/120mmHg for the first 2448 hours. Lipid panel -> total cholesterol 92, LDL 39, HDL 28, VLDL 25. Hgb A1c 5.9%. Formal neuro consult pending. Resting echo reviewed [most recent EF = 55-59%; exercise echo 01/2022]. Continue routine neurochecks Q2H for now, monitor NIHSS score. B12, folate levels WNL. PT/OT evals pending. Passed bedside dysphagia screening, can have HH diet. Formal speech therapy eval pending. Continue close telemetry monitoring. Known Shuffling Gait: Noted shuffling gait at baseline; ongoing since L2-L5 decompression and fusion surgery back in January of 2022. LAFB/RBBB: Chronic RBBB and LAFB per chart review. Unchanged on EKG in ED; telemetry benign thus far - continue to monitor closely. CAD, HTN & HLD H/O ID in 2005 [1.5mm diagonal branch 100% occlusion; no intervention done]: Home BP meds on hold for now to allow for permissive HTN as mentioned above. Continue statin/Zetia. Follows w/ [facility], Dr. Del Rio. GERD, H/O Dysphagia: EGD done 05/2024 which was grossly unremarkable. Continue Protonix. Patient w/o any dysphagia concerns this admission. BPH w/ Persistent LUTS s/p TURP in 2020: Follows w/ [facility]. Can resume solifenacin. He has chronic frequency/nocturia issues per chart review. Bladder scan PRN. DVT Prophylaxis: SCDs/TEDs for now pending neuro evaluation. Code Status: FULL CODE PCP: Duglas Philippe MD Disposition: Admitted in PCU/Telemetry; anticipate discharge in 1-3 days pending neuro consult, PT/OT evals. Patient seen in collaboration with Dr. Teresa. Please see addendum. I spent a total of 75 minutes coordinating, documenting, and providing care for this patient excluding time spent in the performance of separately billed services. This included personally reviewing all current laboratories and imaging studies, medical reconciliation, outpatient chart review and discussion with specialists. This chart was completed in part utilizing Speech Voice Recognition Software. Grammatical errors, random word insertions, pronoun errors, and incomplete sentences are an occasional consequence of this system due to software limitations, ambient noise, and hardware issues. Any formal questions or concerns about the content, text, or information contained within the body of this dictation should be directly addressed to the provider for clarification. Admission and Anticipated Discharge Date Admission Date: June 30, 2024 Supervising Physician Co-Signing Physician Notes Patient seen and examined Patient had a stroke alert called after getting MRI. Noted when he was getting out of MRI machine per RN Became aphasic with increased right sided weakness at the time At the time of my evaluation, aphasia had resolved, No dysdiadochokinesia, power equal on both sides UE/LE Episode likely TIA or evolving stroke MRI brain noted left frontal NATAN acute infarct Discussed with Stroke Alert Neurologist. 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 Witnessed him ambulating - baseline shuffling gait noted but he appeared steady on his feet. NAEO. NIH Stroke Scale 0 since yesterday afternoon around 1PM; initial NIH Stroke Scale was 1 in the ED due to mild aphasia, which has since fully resolved per discussion with patient and nursing staff. He denies any neurological complaints at this time. Notes chronic neuropathy in bilateral lower extremities but otherwise feels well. We discussed him echocardiogram, head CT and head/neck CTA results. He denies any dysphagia concerns; he feels to be at his baseline functioning status. His speech was clear during our conversation. Spoke with the patient's , Vero, this morning over the phone. She reports that he called her on Tuesday (06/29) afternoon around 2:30-3PM while he was shopping at [employer] and informed her that he had an episode whilst shopping where he "couldn't move his feet." Unsure of how long this episode lasted. Of note, patient does have a shuffling gait at baseline since he had L2-L5 decompression and fusion surgery back in January of 2022; however, this episode at [employer] was unlike anything he's ever experienced. No past history of TIA or stroke. Patient ended up driving to work following this episode at [employer] on Tuesday. 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 Vero did notice that he seemed to have some word finding difficulty after he arrived home from work Tuesday evening. She did not think much of it until he was continuing to have some word finding difficulty yesterday. He was also having these "zoning out" episodes yesterday per Vero, which is unlike him. No prior history of seizures. He has not had any facial drooping, visual disturbance or extremity weakness since this all began on Tuesday per Vero. No recent falls or trauma. He has bilateral lower extremity neuropathy at baseline. She was finally able to bring him into the ED yesterday for evaluation after much reluctance on his end. Around 9:30AM, 07/01 - STROKE ALERT CALLED: Patient went down to MRI right after I had chatted with him around 9AM. Brain MRI was completed; however, when patient returned back upstairs from MRI, patient develop sudden-onset right-sided flaccidity and aphasia per bedside RN. Stroke alert was called around 9:30AM. Upon reassessment, patient with notable aphasia and right-sided weakness - completely changed from grossly unremarkable physical examination earlier around 9AM. Patient was emergently sent downstairs for repeat imaging. I called and spoke with his , Vero, to update her regarding this. Repeat head/neck CTA imaging unchanged. Brain MRI noted left frontal NATAN territory acute non-hemorrhagic infarction, small right frontal focus of abnormal signal intensity in the GWI (likely a sequel of an old hemorrhagic insult), microangiopathic ischemic changes with multiple cerebral/ganglionic/pontine/cerebellar chronic ischemic foci and involution brain changes. Patient was transitioned to the ICU following repeat imaging for repeat evaluation by the [facility] TeleStroke neurologist, Dr. Hendrix. No indication for TNK; patient already on GDMT including rosuvastatin 40mg daily, ezetimibe 10mg daily, aspirin 81mg daily and Plavix 75mg daily. Patient's right-sided weakness had fully resolved upon reexamination in the ICU with Dr. Teresa. Patient's speech returned back to baseline as well; very mild word finding issues. He was completely A&Ox3. Patient was transitioned back upstairs to room [facility] around 10:30AM. His , Vero, arrived at bedside shortly before 11AM - she was updated regarding the repeat imaging and all of her questions were answered. Review of Systems Review of Systems: At least ten systems reviewed and negative, except as noted in the subjective section. Physical Exam Physical Exam: Physical exam prior to stroke alert: General: WD/WN, NAD, sitting up in bed, pleasant, conversing appropriately. A+Ox3, flat affect. HEENT: Normocephalic, atraumatic. Conjunctivae normal. External ear and nose normal, oropharynx normal. Respiratory: Normal respiratory effort, lungs clear to auscultation, no wheeze/rales/rhonchi. No accessory muscle use. Cardiovascular: Regular rate, rhythm, normal peripheral pulses, no BLE edema. Vessels: No JVD. Abdomen/GI: Normal bowel sounds, soft, nondistended, nontender to palpation in all quadrants. Extremities/Musculoskeletal: No cyanosis or clubbing, extremities motor strength intact, moves all extremities. Neurologic: No overt focal deficits, CN's II-XI not formally tested but appear grossly intact bilaterally. Physical exam at time of stroke alert: General/Neuro: Laying down in bed, notable word searching difficulty with conversation however he is A&O. Cardiovascular: Regular rate, rhythm, normal peripheral pulses, no BLE edema. NSR noted on telemetry. Extremities/Musculoskeletal: Significant weakness (2/5 strength) in RUE + RLE when compared to the L side. Physical exam after repeat imaging s/p stroke alert conducted by Dr. Teresa in the ICU - please refer to his addendum for these findings; however, patient's right-sided weakness had completely resolved. His speech had also returned back to baseline. Results & Data Results & Data Vital Signs (Past 12 Hours) Vital Signs Temp Pulse Pulse Resp BP BP Pulse Ox 07/01/24 05:51 78 07/01/24 02:52 36.8 C 62 18 120/70 93 06/30/24 22:50 36.3 C L 67 16 126/76 96 06/30/24 20:12 36.8 C 59 L 16 119/65 95 O2 Del Method 07/01/24 05:51 07/01/24 02:52 Room Air 06/30/24 22:50 Room Air 06/30/24 20:12 Room Air Laboratory Results Short CBC 06/30/24 07/01/24 Range/Units 12:57 06:18 WBC 8.42 9.05 (4.8-10.8) K/ul Hgb 14.5 14.0 (14.0-18.0) g/dl Hct 42.3 40.1 L (42.0-52.0) % Plt Count 230 206 (130-400) K/uL BMP 06/30/24 06/30/24 07/01/24 12:57 15:09 06:18 Sodium 136 135 L 134 L Potassium 4.5 3.8 4.4 Chloride 99 98 98 Carbon Dioxide 30 29 31 BUN 12 11 14 Creatinine 0.91 0.87 0.79 Glucose 109 H 97 98 Calcium 9.7 9.1 9.4 Liver Function 06/30/24 Range/Units 12:57 Total Bilirubin 1.0 (0.2-1.0) mg/dl AST 25 (13-39) U/L ALT 17 (7-52) U/L Alkaline Phosphatase 55 (34-104) U/L Albumin 4.6 (3.4-5.0) gm/dl Urine 06/30/24 Range/Units 13:55 Urine Color Yellow Urine Appearance Clear (Clear) Urine pH 6.5 (4.5-7.5) Ur Specific [place] 1.028 (1.000-1.030) Urine Protein Negative (Negative) Urine Glucose (UA) Negative (Negative) Diagnostic Findings Chest X-Ray 06/30/24 12:40 EXAM: Radiograph of the Chest 1 View INDICATION: Unspecified neurologic deficit TECHNIQUE: Frontal view of the chest. COMPARISON: No relevant prior studies available. FINDINGS: Lungs and pleural spaces: No consolidation or pulmonary edema. No pleural effusion or pneumothorax. Heart: Shape and configuration within normal limits allowing for technique. Mediastinum: Normal contour. Bones/joints: No fracture, erosion or dislocation. Soft tissues: No abnormality noted. No radiopaque foreign body noted. Upper abdomen: No abnormality noted. IMPRESSION: No abnormality noted. ACT 112: Negative or not required by law. Electronically signed by Babs Garcia 06-30-2024 2:[address] 06/30/24 12:40 EXAM: CT Head Without Intravenous Contrast INDICATION: Unspecified neurologic deficit TECHNIQUE: Axial computed tomography images of the head/brain without intravenous contrast. Sagittal and/or coronal reformats are provided. Sagittal and coronal reformatted images were created and reviewed. This CT exam was performed using one or more of the following dose reduction techniques: automated exposure control, adjustment of the mA and/or kV according to patient size, and/or use of iterative reconstruction technique. COMPARISON: No relevant prior studies available. FINDINGS: Limitations: None. Brain and extra-axial spaces: There is age appropriate cortical atrophy and chronic ischemic periventricular white matter hypodensity. No acute infarct, hemorrhage or mass noted. There is asymmetric hypodensity in the left frontal lobe typical of the subacute to chronic infarct. No mass effect or shift. Bones/joints: No acute changes. Soft tissues: No significant abnormality noted. Vasculature: Atherosclerosis of the intracranial right vertebral and bilateral carotid arteries. Sinuses: No layering fluid in the visualized portions of the paranasal sinuses. Mastoid air cells: No mastoid effusion. Orbits: No significant abnormality noted. 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 ACT 112: Negative or not required by law. Electronically signed by Babs Garcia 06-30-2024 13:25 PM Head CTA 06/30/24 12:40 EXAM: CT Angiography Head and Neck With Intravenous Contrast INDICATION: Unspecified neurologic deficit TECHNIQUE: [place]/head and neck CT angiography protocol performed with intravenous contrast. Sagittal and coronal reformatted images were created and reviewed. This CT exam was performed using one or more of the following dose reduction techniques: automated exposure control, adjustment of the mA and/or kV according to patient size, and/or use of iterative reconstruction technique. MIP reconstructed images were created and reviewed. CONTRAST: 112ml of Optiray 320 was administered intravenously. COMPARISON: None. FINDINGS: HEAD: Right anterior cerebral artery: No abnormality noted. No occlusion or significant stenosis. Anterior communicating artery is present. No aneurysm. Right middle cerebral artery: No abnormality noted. No occlusion or significant stenosis. No aneurysm. Right posterior cerebral artery: No abnormality noted. No occlusion or significant stenosis. No aneurysm. Right intracranial internal carotid artery: No abnormality noted. No significant stenosis. No dissection or occlusion. Right intracranial vertebral artery: There is atherosclerosis of the intracranial right vertebral artery without stenosis. No dissection. Left anterior cerebral artery: No abnormality noted. No occlusion or significant stenosis. No aneurysm. Left middle cerebral artery: No abnormality noted. No occlusion or significant stenosis. No aneurysm. Left posterior cerebral artery: No abnormality noted. No occlusion or significant stenosis. No aneurysm. Left intracranial internal carotid artery: No abnormality noted. No significant stenosis. No dissection or occlusion. Left intracranial vertebral artery: Small left intracranial vertebral artery with calcification and high-grade stenosis if not occlusion. There is reconstitution of the distal intracranial vertebral artery. Basilar artery: No abnormality noted. No occlusion or significant stenosis. No aneurysm. Other vasculature: Patent dural venous sinuses. Dominant right cervical vertebral artery with dense plaque at the origin causing approximately 50% stenosis. Diminutive left intracranial vertebral artery. No vascular malformation. NECK: Right common carotid artery: There is mild mixed plaque distal right common carotid artery without stenosis, aneurysm or dissection. Right extracranial internal carotid artery: Mild mixed plaque at the bulb. No significant stenosis. No dissection or occlusion. Right external carotid artery: No abnormality noted. No occlusion. Right extracranial vertebral artery: No abnormality noted. No significant stenosis. No dissection or occlusion. Left common carotid artery: There is mild calcific plaque of the proximal and distal left common carotid artery without stenosis, dissection or aneurysm. Left extracranial internal carotid artery: Mild mixed plaque at the bulb. No significant stenosis. No dissection or occlusion. Left external carotid artery: No abnormality noted. No occlusion. Left extracranial vertebral artery: No abnormality noted. No significant stenosis. No dissection or occlusion. Lung apices: No significant abnormality noted. HEAD and NECK: Bones/joints: No significant abnormality. Soft tissues: No abnormality noted. CAROTID STENOSIS REFERENCE USING NASCET CRITERIA: % ICA stenosis = (1 - narrowest ICA diameter/diameter of distal cervical ICA) x 100. Mild - <50% stenosis. Moderate - 50-69% stenosis. Severe - 70-94% stenosis. Near occlusion - 95-99% stenosis. Occluded - 100% stenosis. IMPRESSION: 1. No angiographic abnormality in the brain. 2. Dominant right cervical and intracranial vertebral artery. There is calcific plaque at the origin with up to 50% stenosis. 3. Diminutive left vertebral artery with high-grade stenosis if not occlusion of a short segment of the intracranial portion with reconstitution distally. 4. Less than 25% bilateral cervical internal carotid stenosis. ACT 112: Negative or not required by law. Electronically signed by Babs Garcia 06-30-2024 13:25 PM Neck CTA 06/30/24 12:40 EXAM: CT Angiography Head and Neck With Intravenous Contrast INDICATION: Unspecified neurologic deficit TECHNIQUE: [place]/head and neck CT angiography protocol performed with intravenous contrast. Sagittal and coronal reformatted images were created and reviewed. This CT exam was performed using one or more of the following dose reduction techniques: automated exposure control, adjustment of the mA and/or kV according to patient size, and/or use of iterative reconstruction technique. MIP reconstructed images were created and reviewed. CONTRAST: 112ml of Optiray 320 was administered intravenously. COMPARISON: None. FINDINGS: HEAD: Right anterior cerebral artery: No abnormality noted. No occlusion or significant stenosis. Anterior communicating artery is present. No aneurysm. Right middle cerebral artery: No abnormality noted. No occlusion or significant stenosis. No aneurysm. Right posterior cerebral artery: No abnormality noted. No occlusion or significant stenosis. No aneurysm. Right intracranial internal carotid artery: No abnormality noted. No significant stenosis. No dissection or occlusion. Right intracranial vertebral artery: There is atherosclerosis of the intracranial right vertebral artery without stenosis. No dissection. Left anterior cerebral artery: No abnormality noted. No occlusion or significant stenosis. No aneurysm. Left middle cerebral artery: No abnormality noted. No occlusion or significant stenosis. No aneurysm. Left posterior cerebral artery: No abnormality noted. No occlusion or significant stenosis. No aneurysm. Left intracranial internal carotid artery: No abnormality noted. No significant stenosis. No dissection or occlusion. Left intracranial vertebral artery: Small left intracranial vertebral artery with calcification and high-grade stenosis if not occlusion. There is reconstitution of the distal intracranial vertebral artery. Basilar artery: No abnormality noted. No occlusion or significant stenosis. No aneurysm. Other vasculature: Patent dural venous sinuses. Dominant right cervical vertebral artery with dense plaque at the origin causing approximately 50% stenosis. Diminutive left intracranial vertebral artery. No vascular malformation. NECK: Right common carotid artery: There is mild mixed plaque distal right common carotid artery without stenosis, aneurysm or dissection. Right extracranial internal carotid artery: Mild mixed plaque at the bulb. No significant stenosis. No dissection or occlusion. Right external carotid artery: No abnormality noted. No occlusion. Right extracranial vertebral artery: No abnormality noted. No significant stenosis. No dissection or occlusion. Left common carotid artery: There is mild calcific plaque of the proximal and distal left common carotid artery without stenosis, dissection or aneurysm. Left extracranial internal carotid artery: Mild mixed plaque at the bulb. No significant stenosis. No dissection or occlusion. Left external carotid artery: No abnormality noted. No occlusion. Left extracranial vertebral artery: No abnormality noted. No significant stenosis. No dissection or occlusion. Lung apices: No significant abnormality noted. HEAD and NECK: Bones/joints: No significant abnormality. Soft tissues: No abnormality noted. CAROTID STENOSIS REFERENCE USING NASCET CRITERIA: % ICA stenosis = (1 - narrowest ICA diameter/diameter of distal cervical ICA) x 100. Mild - <50% stenosis. Moderate - 50-69% stenosis. Severe - 70-94% stenosis. Near occlusion - 95-99% stenosis. Occluded - 100% stenosis. IMPRESSION: 1. No angiographic abnormality in the brain. 2. Dominant right cervical and intracranial vertebral artery. There is calcific plaque at the origin with up to 50% stenosis. 3. Diminutive left vertebral artery with high-grade stenosis if not occlusion of a short segment of the intracranial portion with reconstitution distally. 4. Less than 25% bilateral cervical internal carotid stenosis. ACT 112: Negative or not required by law. Electronically signed by Babs Garcia 06-30-2024 13:25 PM (1) Cerebrovascular accident (CVA) CVA mechanism: unspecified Qualified Code(s): I63.9 - Cerebral infarction, unspecified
--- NOTE | 2024-07-01 07:28 | Electrocardiogram Report ---
Test Reason : Blood Pressure : */* mmHG Vent. Rate : 66 BPM Atrial Rate : 66 BPM P-R Int : 166 ms QRS Dur : 164 ms QT Int : 470 ms P-R-T Axes : 55 243 120 degrees QTcB Int : 492 ms Sinus rhythm with marked sinus arrhythmia with Premature atrial complexes Right bundle branch block T wave abnormality, consider lateral ischemia Abnormal ECG Confirmed by Ronald Aguirre ([id number]) on 07/01/2024 7:27:54 AM Referred By: REFERRED SELF Confirmed By: Ronald Aguirre
[2024-07-01 07:45] LABS: BUN Creatinine Ratio 17.7 (10-20); Calcium 9.4 mg/dl (8.6-10.3); Chol HDL Ratio 3.3 (0-5); Creatinine Clr Calc Pharmacy 103.5 ml/min; Potassium 4.4 mmol/L (3.5-5.1)
[2024-07-01] MEDS: EZETIMIBE 10 MG TAB PO SCH (07:47)
[2024-07-01] MEDS: CLOPIDOGREL BISULFATE 75 MG TAB PO SCH (07:48)
[2024-07-01] MEDS: PANTOprazole 40 MG TAB PO SCH (07:48)
[2024-07-01] MEDS: ASPIRIN 81 MG ECTAB PO SCH (07:48)
[2024-07-01] MEDS: LOSARTAN POTASSIUM 50 MG TAB PO SCH (07:48)
[2024-07-01 08:45] LABS: Estimated Average Glucose 123 mg/dl; Hemoglobin A1C 5.9 % (4.5-5.6)
[2024-07-01] MEDS: GADOBUTROL 65ML VIAL IV ONE (09:27)
[2024-07-01] MEDS: OPTIRAY 320 125ml IV ONE (09:56)
[2024-07-01] MEDS: SODIUM CHLORIDE 0.9% 1,000 ML IV SCH (10:27)
--- NOTE | 2024-07-01 10:34 | CT Scan Report ---
EXAM: CT Angiography Head Without and With Intravenous Contrast INDICATION: Left stroke. TECHNIQUE: Axial computed tomographic angiography images of the head without and with intravenous contrast. Sagittal and coronal reformatted images were created and reviewed. This CT exam was performed using one or more of the following dose reduction techniques: automated exposure control, adjustment of the mA and/or kV according to patient size, and/or use of iterative reconstruction technique. MIP reconstructed images were created and reviewed. CONTRAST: 120ml of Optiray 320 was administered intravenously. COMPARISON: MRI the same day and CT angiogram 06/30/2024 FINDINGS: VASCULATURE: Right internal carotid artery: No acute change noted. Intracranial segment is patent with no significant stenosis. No aneurysm. Right anterior cerebral artery: No abnormality noted. No occlusion or significant stenosis. No aneurysm. Right middle cerebral artery: No abnormality noted. No occlusion or significant stenosis. No aneurysm. Right posterior cerebral artery: No abnormality noted. No occlusion or significant stenosis. No aneurysm. Right vertebral artery: There is mild to moderate calcification of the intracranial right vertebral artery without stenosis. No stenosis, dissection or occlusion. Left internal carotid artery: No acute change noted. Intracranial segment is patent with no significant stenosis. No aneurysm. Left anterior cerebral artery: No abnormality noted. No occlusion or significant stenosis. No aneurysm. Left middle cerebral artery: No abnormality noted. No occlusion or significant stenosis. No aneurysm. Left posterior cerebral artery: No abnormality noted. No occlusion or significant stenosis. No aneurysm. Left vertebral artery: Diminutive intracranial left vertebral artery with focal plaque causing high-grade stenosis with minimal distal flow noted. Basilar artery: No abnormality noted. No occlusion or significant stenosis. No aneurysm. Other vasculature: Patent dural venous sinuses. HEAD: Brain and extra-axial spaces: Unenhanced views of the brain demonstrate stable subcute edema in the left frontal lobe corresponding to the area of restricted diffusion on MRI. No hemorrhage or mass effect. Chronic small vessel ischemic changes noted. Bones/joints: No acute fracture. Soft tissues: No abnormality noted. Sinuses: No fluid. Mastoid air cells: No significant abnormality noted. No mastoid effusion. IMPRESSION: 1. Stable acute to subacute left frontal hemorrhagic infarct without mass effect. 2. High-grade stenosis of the the distal half of the intracranial left vertebral artery. 3. Patent intracranial carotid arteries. Findings discussed by phone with Dr. Weber 10:30 AM 07/01/2024. ACT 112: Negative or not required by law. Electronically signed by Babs Garcia 07-01-2024 10:33 AM
--- NOTE | 2024-07-01 10:40 | CT Scan Report ---
EXAM: CT Angiography Neck With Intravenous Contrast INDICATION: Left frontal stroke. TECHNIQUE: Routine carotid CT angiography protocol was performed with intravenous contrast. NASCET criteria using the distal ICAs for comparison were used for evaluation of stenoses. Sagittal and coronal reformatted images were created and reviewed. This CT exam was performed using one or more of the following dose reduction techniques: automated exposure control, adjustment of the mA and/or kV according to patient size, and/or use of iterative reconstruction technique. MIP reconstructed images were created and reviewed. CONTRAST: 120ml of Optiray 320 was administered intravenously. COMPARISON: None. FINDINGS: VASCULATURE: Right common carotid artery: No abnormality noted. No occlusion or significant stenosis. No dissection. Right internal carotid artery: No abnormality noted. Extracranial segment is patent with no occlusion or significant stenosis. No dissection. Right external carotid artery: No abnormality noted. No occlusion. Right vertebral artery: There is moderate calcification at the origin of the right vertebral artery with probable at least 50% stenosis. There is good reconstitution with prominent luminal size. There is otherwise no stenosis. No occlusion or dissection. Left common carotid artery: There is scattered calcific plaque in the left common carotid artery without stenosis, aneurysm or dissection. Left internal carotid artery: There is mild atherosclerotic plaque of the left internal carotid bulb without stenosis, aneurysm or dissection. Left external carotid artery: No abnormality noted. No occlusion. Left vertebral artery: Diminutive left vertebral artery. No stenosis, dissection or occlusion. NECK: Bones/joints: No acute or atypical chronic changes. Soft tissues: No abnormality noted. Lung apices: Clear. CAROTID STENOSIS REFERENCE USING NASCET CRITERIA: % ICA stenosis = (1 - narrowest ICA diameter/diameter of distal cervical ICA) x 100. Mild - <50% stenosis. Moderate - 50-69% stenosis. Severe - 70-94% stenosis. Near occlusion - 95-99% stenosis. Occluded - 100% stenosis. IMPRESSION: 1. Calcific plaque causing stenosis at the origin of the left vertebral artery with robust lumen distal to the calcific plaque. No occlusion, dissection or aneurysm. 2. Diminutive cervical left vertebral artery without occlusion, dissection or aneurysm. 3. Atherosclerotic plaque of the cervical internal carotid arteries stenosis. ACT 112: Negative or not required by law. Electronically signed by Babs Garcia 07-01-2024 10:38 AM
--- NOTE | 2024-07-01 10:42 | Magnetic Resonance Report ---
EXAM: MR brain wo/w con CLINICAL HISTORY: Stroke on Tuesday f/u , eval. TECHNIQUE: MRI of the brain was performed without and with 10.5 Gadavist intravenous contrast administration acquiring multiple sequences. COMPARISON: None. FINDINGS: Brain Parenchyma: A well-defined cortical and subcortical area of restricted diffusion at the left frontal parafalcine region involving the left NATAN vascular territory. Patchy periventricular and subcortical areas of bright T2/FLAIR WI signal intensity are seen at the frontoparietal and occipital regions bilaterally. Small right frontal focus of abnormal signal intensity in the GWI is likely a sequel of an old hemorrhagic insult. Multiple bilateral basal ganglia prominent perivascular spaces Post-Contrast Findings: No abnormal enhancement of the brain parenchyma or meninges. Ventricles and Sulci: prominent ventricular system with no midline shift Widened cortical sulci and cisternal spaces Brainstem and Cerebellum: Patchy area of bright T2/FLAIR WI signal intensity at the pontine and right cerebellar regions Vessels: Intracranial vessels appear normal without evidence of vascular malformations or aneurysms. Skull and Calvarium: No evidence of skull vault lesions or abnormal marrow signals within the calvarium. IMPRESSION: 1. Left frontal NATAN vascular territory acute non-hemorrhagic infarction. 2. Small right frontal focus of abnormal signal intensity in the GWI is likely a sequel of an old hemorrhagic insult. 3. Microangiopathic ischemic changes with multiple cerebral, ganglionic, pontine, and cerebellar chronic ischemic foci. 4. Involutional brain changes. 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 Electronically signed by Baron Epperson 07-01-2024 10:40 AM
--- NOTE | 2024-07-01 12:21 | Neurology Consultation ---
Date of Consultation July 01, 2024 Assessment & Plan (1) Acute left NATAN ischemic stroke: Lorne Roe is a 73 yo m w/ h/o HTN, HLD who presented for AMS found to have L NATAN stroke on MRI and b/l vertebral stenosis on CTA. Patient had been stable [facility] NIHSS 0 when he had an episode of aphasia this AM that triggered a stroke alert with no additional recs. On my exam patient was awake, alert and oriented with no discernible neurologic deficit although his affect was somewhat flat which could relate to stroke or baseline personality characteristic. Given no significnat atherosclerosis suspect stroke relates to cardioembolic cause possibly related to undiagnosed/undetected AFib. Recommend further monitoring and work-up as below Plan -- Continue ASA 81, plavix 75 mg daily x 21 days for low NIHSS stroke per POINT -- Allow permissive HTN treat SBP> 180, pt should monitor BP at home with goal BP <130/80 -- Continue PRIVATE DUTY RN crestor 40, zetia 10 mg -- Patient needs ziopatch at discharge and neurology follow-up. No need for neurosurgical referral for vertebral stenosis which should be managed medically with asa and anti-lipid agents -- Follow-up should be requested with outpatient Neurology Telehealth Consultation Telehealth Information Telehealth Information: I performed this visit using a real-time telehealth connection between my location and the patients location ([facility]). After connecting through interactive tele-video, patient was identified by name and date of and/or wristband check.Patient (or authorized healthcare tax compliance representative) was informed that this was a telemedicine visit and it was being conducted confidentially over secure lines. My office door was closed and no one else was present in the room with me.Patient (or authorized healthcare tax compliance representative) provided consent to proceed with the visit, expressed an understanding of privacy and security of the telemedicine visit, and gave permission to have a hospital tax compliance representative in the room in order to assist with the visit and to conduct portions of the visit, as needed. I informed the patient (or authorized healthcare tax compliance representative) that I reviewed their record and presented the opportunity for them to ask any questions regarding the visit today. The patient agreed to participate. History of Present Illness Reason for Consultation: L NATAN stroke Attending Physician: Yady Teresa MD History of Present Illness Pt presented 06/30 after noticed that he was not acting himself with a flat affect and shuffling gait. He was found to have a acute-subacute L NATAN stroke with vertebral stenosis. NIHSS 0 and pt was admitted for further work-up. This AM pt had an episode of aphasia which triggered a stroke alert with no acute intervention. On my exam pt state he is feeling well, no complaints. NIHSS remains 0 no aphasia detected. He has been treated on ASA and plavix. Allergies Allergy/AdvReac Type Severity Reaction Status Date / Time No Known Allergies Allergy Mild Unverified 09/10/20 14:38 Home Medications Medication Instructions Recorded Confirmed Type chlorthalidone 25 mg tablet 12.5 mg PO DAILY 09/10/20 06/30/24 History metoprolol succinate 50 mg 50 mg PO BID 09/10/20 06/30/24 History tablet,extended release 24 hr rosuvastatin 40 mg tablet 40 mg PO DAILY 09/10/20 06/30/24 History aspirin 81 mg capsule 81 mg PO DAILY 06/30/24 06/30/24 History ezetimibe 10 mg tablet 10 mg PO DAILY 06/30/24 06/30/24 History losartan 100 mg tablet 100 mg PO DAILY 06/30/24 06/30/24 History nitroglycerin 0.4 mg sublingual 0.4 mg sublingual Q4H PRN Angina 06/30/24 06/30/24 History tablet pantoprazole 20 mg tablet,delayed 20 mg PO DAILY 06/30/24 06/30/24 History release sildenafil (pulm.hypertension) 20 20 mg PO DAILY PRN Erectile 06/30/24 06/30/24 History mg tablet (Revatio) Dysfunction solifenacin 10 mg tablet 10 mg PO DAILY 06/30/24 06/30/24 History Patient History Medical History (Updated 07/01/24 @ 12:18 by Felecia Álvarez MD) BPH (benign prostatic hyperplasia) HTN (hypertension) CAD (coronary artery disease) Surgical History (Updated 06/30/24 @ 15:50 by Seble Nair MD) History of cataract removal with insertion of prosthetic lens Status post lumbar spine surgery for decompression of spinal cord H/O transurethral resection of prostate Social History (Updated 06/30/24 @ 15:47 by Seble Nair MD) Smoking Status: Never smoker Tobacco Type: Cigarettes Age Quit Using Tobacco: 39; Smoking End Date: 2006; Second Hand Exposure: No; Tobacco Cessation Education Requested by Patient: No Hx Alcohol Use: Yes Alcohol type: beer Alcohol Intake Frequency: 2-3 x/Week Hx Substance Use: No Preferred Language: Hebrew Proposal Analyst Required: No Beliefs That Will Affect Care: None Current Living Situation: Spouse Other Information That Helps Us Care for You: No Feels Safe at Home: Yes Safety Concerns: Feels Safe At This Time Assistive Devices: Glasses and Hearing Aid - Bilateral Review of Systems Negative aside from HPI Physical Exam Pt resting comfortable in bed awake and conversant in conversation. Flat affect, answers most questions with only a few words. No aphasia detected,able to name, repeat, read and follow commands. No gaze deviation, face symmetric. Able to lift all extremities against gravity without drift. no ataxia on fingertonose Results & Data Vital Signs (Past 12 Hours) Vital Signs Temp Pulse Pulse Resp BP BP Pulse Ox 07/01/24 11:54 36.6 C 61 19 127/69 96 07/01/24 08:00 64 07/01/24 07:51 36.9 C 70 138/83 96 07/01/24 05:51 78 07/01/24 02:52 36.8 C 62 18 120/70 93 O2 Del Method 07/01/24 11:54 Room Air 07/01/24 08:00 07/01/24 07:51 Room Air 07/01/24 05:51 07/01/24 02:52 Room Air Laboratory Results HgbA1c: 5.[address] Head 07/01: L Subacute NATAN stroke CTA Head neck 06/30: b/l vetebral stenosis MRI Brain 06/30: L NATAN acute territory stroke TTE 06/30: Normal EF, no LV thrombus Medications Administered Per Chart
--- NOTE | 2024-07-01 14:14 | Communication Note ---
Date of Service: July 01, 2024 Neurology consult reviewed. Continue DAPT x 21 days for low NIHSS (?) per point. Continue Zetia/Crestor. Allow for permissive HTN - recommend treating SBP>180. Goal BP for at-home patient monitoring <130/80. Will need to arrange Ziopatch at discharge & neurology f/u appt -> "given no significant atherosclerosis, suspect stroke relates to cardioembolic cause possibly related to undiagnosed/undetected atrial fibrillation." No need for neurosurgical referral for vertebral stenosis as this can be managed medically with ASA & Zetia/Crestor. Resting echo this admission with reduced EF of 45-50% when compared to previous stress echo from 12/2021 which revealed an EF of 55-59%. He will need a close f/u appt with his primary java front end web developer, Dr. Del Rio, within the next 1-2 weeks to discuss this finding. He is without any cardiopulmonary complaints; telemetry has been benign. He has chronic RBBB/LAFB. He does not warrant inpatient cardiology evaluation at this time.
[2024-07-02 06:24] LABS: Basophils # (auto) 0.03 K/uL (0.00-0.20); Basophils % (auto) 0.4 %; Eosinophils % (auto) 2.5 %; Hematocrit (blood only) 39.9 % (42.0-52.0); Hemoglobin 13.7 g/dl (14.0-18.0); Immature Granulocytes # (auto) 0.02 K/uL (0.01-0.20); Immature Granulocytes % (auto) 0.3 %; Lymphocytes # (auto) 1.47 K/uL (1.20-3.40); Lymphocytes % (auto) 18.5 %; Mean Corpuscular Hemoglobin 31.3 pg (25.0-34.0); Mean Corpuscular Hgb Conc 34.3 g/dL (32.0-36.0); Mean Corpuscular Volume 91.1 fL (80.0-100.0); Mean Platelet Volume 11.3 fL (9.4-12.4); Monocytes # (auto) 0.93 K/uL (0.11-0.59); Monocytes % (auto) 11.7 %; Neutrophils # (auto) 5.29 K/uL (1.40-6.50); Neutrophils % (auto) 66.6 %; Platelet Count 196 K/uL (130-400); RDW Standard Deviation 40.2 fL (36.4-46.3); Red Blood Count 4.38 M/uL (4.70-6.10); White Blood Count 7.94 K/ul (4.8-10.8)
[2024-07-02 06:40] LABS: BUN Creatinine Ratio 17.1 (10-20); Calcium 8.8 mg/dl (8.6-10.3); Creatinine Clr Calc Pharmacy 99.6 ml/min; Magnesium 1.7 mg/dl (1.7-2.4); Potassium 3.4 mmol/L (3.5-5.1)
--- NOTE | 2024-07-02 07:37 | Pharmacy Report ---
- Date of Service July 02, 2024 - Pharmacy CVA/TIA Medication Review Medications to Prevent Stroke handout has been added to the patients discharge packet. Antiplatelet(s) * aspirin 81mg daily * clopidogrel 75mg daily * DAPT x21 days Cholesterol * High intensity statin: rosuvastatin 40 mg daily * ezetimibe 10mg daily DVT Prophylaxis * SCD knee * Pharmacologic and mechanical DVT prophylaxis deferred due to Therapeutic Anticoagulation * No history of Afib/Aflutter noted * Ziopatch on discharge Type 2 Diabetes * Patient does not have T2DM
[2024-07-02] MEDS: POTASSIUM CHLORIDE CRTAB 20 MEQ TABCR PO STA (07:46)
[2024-07-02] MEDS: OXYBUTYNIN CHLORIDE XL 5 MG TABCR PO SCH (07:48)
--- NOTE | 2024-07-02 08:46 | Hospitalist Progress Note ---
Date of Service July 02, 2024 Assessment & Plan (1) Cerebrovascular accident (CVA): (2) CAD (coronary artery disease): (3) History of MD (myocardial infarction): (4) Hypokalemia: Plan Lorne Roe is a 73y/o M with PMHx significant for CAD, prior MD in 2005 [1.5mm diagonal branch 100% occlusion; no intervention done], HTN, HLD, asymptomatic PVCs, RBBB/LAFB, prior alcohol use and BPH w/ persistent LUTS s/p TURP in 2020 who presented to the ED on 06/30/2024 for evaluation of strokelike symptoms and was found to have a subacute to chronic left frontal nonhemorrhagic infarct on admitting head CT. Pertinent events from yesterday, 07/01: Around 9AM, patient was seen and examined at bedside. Witnessed him ambulating - baseline shuffling gait noted but he appeared steady on his feet. NAEO. No neurological deficits at the time of this evaluation. He has chronic BLE neuropathy. He felt he was at his baseline functioning status at the time of this conversation. He was being transported down to imaging for brain MRI following our conversation at that time. Telemetry unremarkable. However, around 9:30AM after the patient returned upstairs from MRI, he developed sudden-onset right-sided flaccidity and aphasia. Stroke alert was called. Upon reassessment, patient with notable word finding difficulty and right-sided weakness. Noted to be in NSR on telemetry, VSS. Patient was emergently sent downstairs for repeat imaging. Repeat head/neck CTA imaging grossly unchanged from prior. Brain MRI -> L frontal NATAN territory acute non-hemorrhagic infarction, small R frontal focus of abnormal signal intensity in the GWI (likely a sequel of an old hemorrhagic insult), microangiopathic ischemic changes with multiple cerebral/ganglionic/pontine/cerebellar chronic ischemic foci and involution brain changes. Patient was transitioned to the ICU following repeat imaging for evaluation by the [facility] TeleStroke neurologist, Dr. Hendrix. No indication for TNK; patient already on GDMT including rosuvastatin 40mg daily, ezetimibe 10mg daily, aspirin 81mg daily and Plavix 75mg daily. Patient's right-sided weakness and word finding difficulty resolved upon reexamination in the ICU with Dr. Ezekwem; he was A&Ox3. He was transitioned back upstairs to room [facility] around 10:30AM. L Frontal NATAN Vascular Territory Infarction: Repeat Neck CTA -> Calcified plaque causing stenosis at the origin of the L vertebral artery, atherosclerotic plaque of the cervical internal carotid arteries. Repeat Head CTA -> Stable acute to subacute L frontal non hemorrhagic infarct w/o mass effect, high-grade stenosis of the distal half of the intracranial L vertebral artery. Lipid panel -> total cholesterol 92, LDL 39, HDL 28, VLDL 25. Hgb A1c 5.9%. Echo reviewed as per below. Brain MRI findings as per above. Neurology consulted reviewed. DAPT x 21 days. Neurology f/u appt will need to be arranged; will also need o/p Ziopatch monitor to assess for underlying arrhythmias. Current AHA/ASA guidelines recommend permissive HTN with a BP goal of < or = to 220/120mmHg for the first 2448 hours. Continue statin/Zetia. Continue to hold home BP meds to allow for permissive HTN. Gentle IVF running, will stop after 3rd bag. Continue routine neurochecks; monitor NIHSS score [has been 0 since ~4PM yesterday]. B12, folate levels WNL. PT/OT evals pending. Telemetry monitoring benign this admission, chronic LAFB/RBBB as per below. PT/OT evals pending - possible discharge, likely home, later on today. Reduced EF on Updated Echo: Resting echo this admission with reduced EF of 45-50% when compared to previous stress echo from 12/2021 which revealed an EF of 55-59%. He will need a close f/u appt with his primary director media, Dr. Del Rio, within the next 1-2 weeks to discuss this finding. He is without any cardiopulmonary complaints; telemetry has been benign. He has chronic RBBB/LAFB. He does not warrant inpatient cardiology evaluation at this time. Known Shuffling Gait: Noted shuffling gait at baseline; ongoing since L2-L5 decompression and fusion surgery back in January of 2022. LAFB/RBBB: Chronic RBBB and LAFB per chart review. Unchanged on EKG in ED; telemetry benign so far this admission - continue to monitor closely. CAD, HTN & HLD H/O MD in 2005 [1.5mm diagonal branch 100% occlusion; no intervention done]: Home BP meds on hold for now to allow for permissive HTN as mentioned above. Continue statin/Zetia. Follows w/ [facility], Dr. Del Rio. GERD, H/O Dysphagia: EGD done 05/2024 which was grossly unremarkable. Continue Protonix. Patient w/o any dysphagia concerns this admission. BPH w/ Persistent LUTS s/p TURP in 2020: Follows w/ [facility]. Resumed solifenacin. He has chronic frequency/nocturia issues per chart review. Bladder scan PRN. Hypokalemia: K+ 3.4 this morning, repleted w/ po KCl 40mEq. Will continue to monitor and manage his electrolytes PRN. DVT Prophylaxis: SCDs/TEDs, encourage ambulation. Code Status: FULL CODE PCP: Duglas Philippe MD Disposition: Admitted in PCU/Telemetry; anticipate possible discharge later this afternoon pending PT/OT evals. Patient seen in collaboration with Dr. Teresa. Please see addendum. I spent a total of 45 minutes coordinating, documenting, and providing care for this patient excluding time spent in the performance of separately billed services. This included personally reviewing all current laboratories and imaging studies, medical reconciliation, outpatient chart review and discussion with specialists. This chart was completed in part utilizing Speech Voice Recognition Software. Grammatical errors, random word insertions, pronoun errors, and incomplete sentences are an occasional consequence of this system due to software limitations, ambient noise, and hardware issues. Any formal questions or concerns about the content, text, or information contained within the body of this dictation should be directly addressed to the provider for clarification. Admission and Anticipated Discharge Date Admission Date: June 30, 2024 Subjective Patient seen and examined this morning at bedside in room W457-2. Of note, he has a flat affect at baseline. He endorses feeling well this morning. No further neurological symptoms since stroke alert yesterday morning; he feels he is back to his baseline. We discussed his neurology consult from yesterday and DAPT x 21 days. Also discussed neurology f/u appt, PCP f/u appt and need for o/p Ziopatch monitoring. He is waiting to be seen by PT/OT. Possible discharge this afternoon. His , Vero, was not present at bedside this morning. Review of Systems Review of Systems: At least ten systems reviewed and negative, except as noted in the subjective section. Physical Exam Physical Exam: General: WD/WN, NAD, sitting up in bed, conversing appropriately. A+Ox3, flat affect but pleasant M. HEENT: Normocephalic, atraumatic. Conjunctivae normal. External ear and nose normal, oropharynx normal. Respiratory: Normal respiratory effort, lungs clear to auscultation, no wheeze/rales/rhonchi. No accessory muscle use. Cardiovascular: Regular rate, rhythm, normal peripheral pulses, no BLE edema. Vessels: No JVD. Abdomen/GI: Normal bowel sounds, soft, nondistended, nontender to palpation in all quadrants. Extremities/Musculoskeletal: Extremity motor strength intact (5/5) bilaterally, actively moves all extremities. Neurologic: No overt focal deficits, speech clear, CN's II-XI not formally t ested but appear grossly intact bilaterally. Results & Data Results & Data Vital Signs (Past 12 Hours) Vital Signs Temp Pulse Resp BP Pulse Ox O2 Del Method 07/02/24 07:49 36.5 C 80 22 174/92 H 96 Room Air 07/02/24 02:43 36.6 C 70 18 146/82 H 92 Room Air 07/01/24 22:44 36.7 C 70 18 136/76 93 Room Air Laboratory Results Short CBC 07/02/24 Range/Units 05:38 WBC 7.94 (4.8-10.8) K/ul Hgb 13.7 L (14.0-18.0) g/dl Hct 39.9 L (42.0-52.0) % Plt Count 196 (130-400) K/uL BMP 07/02/24 05:38 Sodium 136 Potassium 3.4 L D Chloride 101 Carbon Dioxide 29 BUN 14 Creatinine 0.82 Glucose 96 Calcium 8.8 (1) Cerebrovascular accident (CVA) CVA mechanism: unspecified Qualified Code(s): I63.9 - Cerebral infarction, unspecified (2) CAD (coronary artery disease) Coronary Disease-Associated Artery/Lesion type: unspecified vessel or lesion type [place] vs. transplanted heart: [place] heart Associated angina: unspecified whether angina present Qualified Code(s): I25.10 - Atherosclerotic heart disease of [place] coronary artery without angina pectoris
[2024-07-02 12:30] VITALS: RESP 19
--- NOTE | 2024-07-02 14:25 | Discharge Summary ---
Discharge Summary Date of Service July 02, 2024 Principal Dx & Hospital Course #1 = Principal Diagnosis (1) Cerebrovascular accident (CVA): (2) CAD (coronary artery disease): (3) History of OR (myocardial infarction): Nolan Roe is a 73y/o M with PMHx significant for CAD, prior OR in 2005 [1.5mm diagonal branch 100% occlusion; no intervention done], HTN, HLD, asymptomatic PVCs, RBBB/LAFB, prior alcohol use and BPH w/ persistent LUTS s/p TURP in 2020 who presented to the ED on 06/30/2024 for evaluation of strokelike symptoms and was found to have a subacute to chronic left frontal nonhemorrhagic infarct on admitting head CT. Left Frontal NATAN Vascular Territory Infarction: Patient presented to the ED on 06/30/2024 for evaluation of strokelike symptoms. In short, patient had an incident the day before presenting to the ED where he "couldn't move his feet" whilst shopping at [employer] in the afternoon around 2:30-3PM. He does have a shuffling gait and BLE neuropathy at baseline since he underwent L2-L5 decompression and fusion surgery back in January of 2022, but this incidence was quite unusual for him. 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 Whilst at work that evening, he was noted to be disengaged in activities which was very unusual for him. He ended up driving himself home after work where his , Vero, noticed he was having word finding difficulty. She did not think much of it at the time and they ended up going to bed. However, the next morning, she continued to notice his word finding difficulty and he also started having these episodes where he would "zone out." This prompted her to bring him to the ED for evaluation. Head CTA in the ED revealed a subacute to chronic left frontal nonhemorrhagic infarct without mass effect. Head/neck CTA in the ED showed dominant right cervical and intracranial vertebral artery (calcific plaque at the origin with up to 50% stenosis), diminutive left vertebral artery with high-grade stenosis if not occlusion of a short segment of the intracranial portion with reconstitution distally and less than 25% bilateral cervical internal carotid stenosis. Patient with flat affect and disengaged behavior on admission but otherwise had no major neurological deficits. He did receive a dose of ASA and Plavix in the ED; no intervention was recommended by the [facility] TeleStroke neurologist in the ED other than starting Plavix 75mg daily as the patient was already on ASA 81mg daily. Echocardiogram was obtained with no evidence of right to left intra-cardiac shunt, but did not a decrease in his EF which is noted down below. Lipid panel unremarkable with total cholesterol 92, LDL 39, HDL 28 and VLDL 25. Hgb A1c was 5.9%. Telemetry benign. Patient was initially examined on 07/01/2024 around 9AM. At that time, he was witnessed ambulating in the room and offered no acute concerns. He was slightly slow to respond to questioning but otherwise his neurological exam was completely benign. He was being transported down to MRI following our conversation. However, about 30 minutes later, the patient returned from MRI and developed sudden onset right-sided flaccidity as well as aphasia. Stroke alert was called. Upon reassessment, patient had notable word finding difficulty as well as right-sided weakness. Patient was emergently sent downstairs for repeat head/neck CTA imaging which came back grossly unchanged from the prior ones. Brain MRI noted left front NATAN vascular territory acute non-hemorrhagic infarction, small right frontal focus of abnormal signal intensity in the GWI (likely sequelae of an old hemorrhagic insult), microangiopathic ischemic changes with multiple cerebral/ganglionic/pontine/cerebellar chronic ischemic foci and involutional brain changes. Patient was seen by the [facility] TeleStroke neurologist, Dr. Hendrix, in the ICU following repeat imaging after the stroke alert. Again, there was no indication for TNK. At time of reevaluation in the ICU, patient was back to his baseline neurological status. His right-sided weakness and word finding difficulty resolved; neurological exam unremarkable. He was seen and evaluated by neurology later in the afternoon following the stroke alert. Neurology recommended the following: DAPT x 21 days and Ziopatch monitoring at discharge to assess for possible underlying arrhythmia. He is being discharged on GDMT including rosuvastatin 40mg daily, ezetimibe 10mg daily, aspirin 81mg daily and Plavix 75mg daily. Outpatient neurology follow-up appointment to be arranged as well. Patient was evaluated by PT/OT. He will be pursuing outpatient PT/OT/ST services. Only deficits noted are mild speech delay and flat affect, but otherwise he is back to baseline. He is being discharge home in stable condition. Reduced EF on Updated Echo: Resting echo this admission with reduced EF of 45-50% when compared to previous stress echo from 12/2021 which revealed an EF of 55-59%. He will need a close follow-up appointment with his primary jewel bearing polisher, Dr. Del Rio, within the next 1-2 weeks to discuss this finding - this will be arranged at his PCP follow-up appointment. Telemetry benign this admission as mentioned above. He has chronic RBBB/LAFB. He did not warrant inpatient cardiology evaluation given absence of cardiopulmonary complaints. Known Shuffling Gait: Noted shuffling gait at baseline; ongoing since L2-L5 decompression and fusion surgery back in January of 2022. LAFB/RBBB: Chronic RBBB and LAFB per chart review. Unchanged on EKG in ED; telemetry benign this admission. CAD, HTN & HLD H/O OR in 2005 [1.5mm diagonal branch 100% occlusion; no intervention done]: Can resume home BP meds at time of discharge. Cardiology follow-up to be arranged by PCP as per above. GERD, H/O Dysphagia: EGD done 05/2024 which was grossly unremarkable. Patient with no dysphagia concerns this admission, speech evaluation unremarkable. Continue Protonix. BPH w/ Persistent LUTS s/p TURP in 2020: Follows w/ [facility]. Continue solifenacin. He has chronic frequency/nocturia issues per chart review. PCP: Duglas Philippe MD Disposition: Patient is being discharged home in stable condition with close neurology and PCP follow-up appointments. He will pursue outpatient PT/OT/ST services. plus additional family members were updated at bedside prior to discharge and all questions were answered to their satisfaction. Patient voiced understanding of discharge instructions and appropriate follow-up appointments. Patient seen in collaboration with Dr. Teresa. Please see addendum. I spent a total of 70 minutes coordinating, documenting, and providing care for this patient excluding time spent in the performance of separately billed services. This included personally reviewing all current laboratories and imaging studies, medical reconciliation, outpatient chart review and discussion with specialists. This chart was completed in part utilizing Speech Voice Recognition Software. Grammatical errors, random word insertions, pronoun errors, and incomplete sentences are an occasional consequence of this system due to software limitations, ambient noise, and hardware issues. Any formal questions or concerns about the content, text, or information contained within the body of this dictation should be directly addressed to the provider for clarification. Notes For Next Care Provider Patient will need to have Ziopatch monitoring arranged to assess for underlying arrhythmia in the setting of acute stroke. He will also need a follow-up appointment arranged with his primary jewel bearing polisher, Dr. Del Rio, within the next 1-2 weeks as he was found to have a reduced EF on resting echocardiogram this admission. Lastly, he will need a neurology follow-up appointment arranged as well within the next 1-3 weeks. Medication Changes From Visit DAPT including Plavix 75mg daily & aspirin 81mg daily x 21 days (continue through 07/22/2024). After 07/22/2024, patient can stop taking Plavix. He should continue taking aspirin 81mg daily indefinitely. Admission HPI Per Admitting Provider Mr. Roe is a 73 year old gentleman with past medical history remarkable for CAD, prior OR, PVCs, HTN, BPH, HLD who presented to [facility] ED due to strokelike symptoms. present at bedside. Patient states that yesterday around 230-3pm he was feeling fine in [employer], until suddenly his sensation of walking felt more like he was shuffling. He states this differs from his routine gait abnormality from his back pain as he underwent lumbar decompression in 2021 and residual "pain flares." He drove himself to work, where friends/son noted that patient was not engaging in activities like he routinely does. states that she was not around him until late in the evening and noted he was still "off" this morning. Patient denies any lateralizing symptoms, noting the perception was in both legs. No facial drop, dysphagia, vertiginous symptoms reports. Patient did not fall and no reported vision disturbance. In the ED, vitals were notable for BP of 109-130s, HR of 60s, and O2 sat of mid- high 90s on RA, afebrile Imaging revealed subacute to chronic left frontal nonhemorrhagic infarct without mass effect. EKG PACs/PVCs, RBBB review of prior EKG as OP noted Sinus rhythm with frequent PVCs, right bundle branch block, left anterior fascicular block. No change compared to prior ECG. ED interventions: none Consultants: ED reportedly discussed with Dina, not candidate for thrombolytics or other interventions at this time Patient to be admitted to PCU for further evaluation and management of left frontal stroke Admission Exam Per Admitting Provider GENERAL APPEARANCE: AxOx4, flat affect HEENT: NC, AT. MMM. EOMI, clear conjunctiva, oropharynx clear. recent tooth loss right upper canine, gingiva without erythema or signs of infection NECK: Supple without lymphadenopathy. No stiffness or restricted ROM. HEART: Normal rate and regular rhythm, normal S1/S1, no m/r/g LUNGS: CTAB, moving air well. No crackles or wheezes are heard. ABDOMEN: Soft, nontender, nondistended with good bowel sounds heard. BACK: No CVAT, no obvious deformity. EXTREMITIES: Without cyanosis, clubbing or edema. NEUROLOGICAL: Grossly nonfocal. Alert and oriented, moving all 4 extremities. CNII-XII intact, strength intact 5/5 BUE/BLE Skin: Warm and dry without any rash. Discharge Exam General: WD/WN, NAD, sitting up chair at bedside, conversing appropriately. A+Ox3, flat affect but pleasant M. Respiratory: Normal respiratory effort, lungs clear to auscultation, no wheeze/rales/rhonchi. No accessory muscle use. Cardiovascular: Regular rate, rhythm, normal peripheral pulses, no BLE edema. Vessels: No JVD. Extremities/Musculoskeletal: Extremity motor strength intact (5/5) bilaterally, actively moves all extremities. Neurologic: No overt focal deficits, speech clear, CN's II-XI not formally tested but appear grossly intact bilaterally. Updated Medication List Medication Instructions Recorded Confirmed Type chlorthalidone 25 mg tablet 12.5 mg PO DAILY 09/10/20 06/30/24 History metoprolol succinate 50 mg 50 mg PO BID 09/10/20 06/30/24 History tablet,extended release 24 hr rosuvastatin 40 mg tablet 40 mg PO DAILY 09/10/20 06/30/24 History aspirin 81 mg capsule 81 mg PO DAILY 06/30/24 06/30/24 History ezetimibe 10 mg tablet 10 mg PO DAILY 06/30/24 06/30/24 History losartan 100 mg tablet 100 mg PO DAILY 06/30/24 06/30/24 History nitroglycerin 0.4 mg sublingual 0.4 mg sublingual Q4H PRN Angina 06/30/24 06/30/24 History tablet pantoprazole 20 mg tablet,delayed 20 mg PO DAILY 06/30/24 06/30/24 History release sildenafil (pulm.hypertension) 20 20 mg PO DAILY PRN Erectile 06/30/24 06/30/24 History mg tablet (Revatio) Dysfunction solifenacin 10 mg tablet 10 mg PO DAILY 06/30/24 06/30/24 History clopidogrel 75 mg tablet 75 mg PO QAM 19 days #19 tabs 07/02/24 Rx Hospital Stay Data Consultations 06/30/24 13:55 ED Decision to Admit Stat 06/30/24 14:00 Consult Neurology Routine Diagnostic Imagining Performed 06/30/24 12:40 CT angio head w con Stat CT angio neck with con Stat CT head/brain wo con Stat 07/01/24 07:19 MRI Brain [MR brain wo/w con] Routine 07/01/24 09:48 CT angio head wo/w Stat CTA neck with con [CT angio neck with con] Stat Discharge Instructions Given to Patient (Per Discharging Provider) Mr Roe You were hospitalized and found to have a stroke. You were extensively evaluated. You were started on plavix (or clopidogrel) for the next 3 weeks Please continue to take your Aspirin 81mg daily, rosuvastatin and your other mallory e medications. It is very important that you follow up with your Primary Doctor who will arrange zio patch testing as well. Please follow up with Neurology office. It was a pleasure taking care of you. Total Time Total Time Spent Total Time Spent (In Minutes): 70 Supervising Physician Co-Signing Physician Notes Patient seen and examined I spent a total of 20 minutes coordinating, documenting and providing care for this patient excluding time spent in performance of separately billed services
[2024-07-02 16:21] VITALS: BP 154/69; PULSE 69; TEMP 98.7; O2SAT 95
[2024-07-02] MEDS ORDERED: STROKE PATIENT DISCHARGE STA (16:28)
== END 2024-07-02 18:20 | disposition home or self-care (01) | DRG 65 ==
LOC: ED 12:28 → 4W 14:00 → SUATTDRO 14:00 → 4W 14:38